=== PATIENT | female | born 1955 | race African-American/Black ===

== ENCOUNTER → 2016-10-20 | Day surgery (SDC) | payer BC ==
[~2016-10-20] MED LIST: ACET1TAB33 PO; ASPI81TA2 PO; ATEN50TA PO; CIPR500T94 PO; COLE1TAB PO; DILT180C2 PO; FAMO-63 PO; HYDR-2666 PO; HYDR-2678 PO; HYDR1TAB20 PO; HYDROmorphone 2 MG/ML VIAL IV PRN; IV RINGERS,LACTATED 1000ML 1,000 ML IV SCH; LIDOCAINE 1% 1 ML SYRINGE. ID PRN; MORPHINE SULFATE 2 MG/ML DISP.SYRIN. IV PRN; MULT-18 PO; MULT1TAB77 PO; ONDANSETRON PF 4 MG/2 ML VIAL. IV PRN; POTA20TA12 PO; PROCHLORPERAZINE 10 MG/2 ML VIAL. IV PRN; PROPOFOL 40 ML IV ONE; TRIA1CAP3 PO; fentaNYL PF VIAL 100 MCG/2 ML VIAL IV PRN
--- NOTE | 2016-10-20 09:40 | PDOC1 ---
HISTORY & PHYSICAL H&P Kathryn Kwan [id number] 1955 10/06/2016 02:30 PM 06/21 [facility], [employer] PATIENTS [employer] [employer] [address] [place], [place] [id number] Ph. [phone] Patient: Kathryn Kwan Date of : 1955 Date: 10/06/2016 2:30 PM Historian: self Visit Type: Office Visit This 61 year old female presents for Diarrhea and Elevated liver chemistry. History of Present Illness: 1. Diarrhea The patient describes it as loose and watery. It occurs cyclically. She denies aggravating factors. She denies relieving factors. Pertinent negatives include abdominal pain, bloating, blood in stool, cramping (abdominal), distention ( abdominal), fever, flatulence, joint pain, nausea, rash, tenesmus, vomiting and weight loss. Additional information: no family history of colon cancer, no family history of Crohns/Colitis and Patient had multiple small bowel resection due to bowel obstruction. 2. Elevated liver chemistry Additional information: Patient has some elevation of SGPT and some indirect bilirubinemia. No complain.. INTAKE COMMENTS: Intake Comments: Nurses Notes:Pt states she is here today due to elevated liver enzymes. Pt was referred by Dr. Alvarez. Pt goes on to say she has also has loose stools she states she goes 3-4 times a day. Pt is 61 yrs old states she has had a colonoscopy performed years ago. the pt had a small bowel resection a few years ago. PROBLEM LIST: Problem Description Onset Date Lipoma (clinical) 05/14/2010 Infantile cerebral palsy 05/14/2010 Acute bronchitis, unspecified organism 08/21/2015 Physical exam 08/21/2015 Back pain with left-sided radiculopathy 06/25/2015 Acute cystitis with hematuria 11/13/2015 Benign essential hypertension 11/01/2009 Uterine leiomyoma 11/01/2009 Diarrhea 11/01/2009 Acute back pain 06/17/2015 History of noncompliance with medication regimen 11/01/2009 Dyspepsia 11/01/2009 PAST MEDICAL/SURGICAL HISTORY (Detailed) Disease/disorder Onset Date Management Date Comments Small bowel resection 2006 Hysterectomy Cerebral Palsy diarrhea Fibroids Hypertension Lipoma Nephrolithiasis Peptic ulcer disease OBSTETRIC HISTORY: Not currently . Medications (Active): Started Medication Directions Instruction Stopped 06/02/2016 ASPIRIN EC 81 MG TABLET TAKE 1 TABLET DAILY 03/04/2016 atenolol 50 mg tablet TAKE 1 TABLET BY MOUTH EVERY DAY 03/04/2016 Colestid 1 gram tablet TAKE 1 TABLET BY ORAL ROUTE 2 TIMES EVERY DAY SCHEDULE APPT!!! 09/14/2016 [facility] SPECTRAVITE ADULT 50+ TABS TAKE 1 TABLET BY MOUTH EVERY DAY WITH FOOD . SCHEDULE APPOINTMENT 08/31/2016 DILTIAZEM 24HR ER 180 MG CAP TAKE 1 CAPSULE (180MG) BY ORAL ROUTE EVERY DAY, SCHEDULE APPT!!! 08/31/2016 hydrochlorothiazide 25 mg tablet take 1 tablet by oral route every day 09/15/2016 potassium chloride ER 10 mEq tablet,extended release take 1 tab by mouth 3 times daily Allergies: Ingredient Reaction Medication Name Comment NO KNOWN ALLERGIES REVIEW OF SYSTEMS System Neg/Pos Details Constitutional Negative Chills, fever, malaise and weight loss. ENMT Negative Sore throat. Eyes Negative Double vision. Respiratory Negative Dyspnea and wheezing. Cardio Negative Chest pain and irregular heartbeat/palpitations. GI Positive See HPI. GI Negative Abdominal cramping, abdominal distention, abdominal pain, bloating, blood in stool, flatulence, nausea, see HPI, tenesmus and vomiting. Negative Dysuria and hematuria. Endocrine Negative Cold intolerance and heat intolerance. Psych Negative Anxiety. Integumentary Negative Hives and rash. MS Negative Joint pain. Timur/Lymph Negative Easy bleeding and easy bruising. Allergic/Immuno Negative Animals at home and food allergies. VITAL SIGNS Time BP mm/Hg Pulse /min Resp /min Temp F Ht ft Ht in Ht cm Wt lb Wt kg BMI kg/ m2 BSA m2 O2 Sat% 2:35 PM 95 19 97.6 5.0 8.50 173.99 171.20 77.655 25.65 97 Time Measured by 2:35 PM Krystal Lanza PHYSICAL EXAM: Exam Findings Details Constitutional Normal Well developed. Eyes Normal Conjunctiva - Right: Normal, Left: Normal. Sclera - Right: Normal, Left: Normal. Nasopharynx Normal Lips/teeth/gums - Normal. Neck Exam Normal Inspection - Normal. Thyroid gland - Normal. Respiratory Normal Inspection - Normal. Auscultation - Normal. Cardiovascular Normal Regular rate and rhythm. No murmurs, gallops, or rubs. Vascular Normal Pulses - Carotids: Normal, Femoral: Normal, Dorsalis pedis: Normal. Abdomen Normal Inspection - Normal. Anterior palpation - No guarding. No abdominal tenderness. No hepatic enlargement. No splenic enlargement. No hernia. No Ascites. Skin Normal Inspection - Normal. Extremity Normal No edema. Psychiatric Normal Oriented to time, place, person, and situation. Appropriate mood and effect. The patient was checked out at 3:12 PM by Anitha Alvarado. Assessment/Plan # Detail Type Description 1. Assessment Functional diarrhea (K59.1). Patient Plan schedule colonoscopy at Plan Orders Further diagnostic evaluations ordered today include(s) Colonoscopy to be performed today. 2. Assessment Abnormal LFTs (R79.89). Patient Plan Schedule abdominal sonogram Plan Orders Further diagnostic evaluations ordered today include(s) Abdomen Ultrasound; Complete to be performed today. She is to schedule a follow-up visit with Yoni Faria MD upon completion of work-up 3. Assessment Abnormal results of liver function studies (R94.5). Impression Patient has predominant elevation of unconjugated bilirubin raising question if there is any evidence of mild hemolysis.. Patient Plan Repeat LFT today. Await sonogram result. Plan Orders LFT to be performed today. Electronically signed by: Yoni Faria MD 10/07/2016 06:28 AM Document generated by: Yoni Faria 10/07/2016 06:28 AM Shay Alvarze MD, Family Practice; Shelton Antunez MD Internal Medicine; Jj Cantrell MD, Internal Medicine; Lupe Faria MD Internal Medicine; Yoni Faria MD, Gastroenterology; Frankie Daniel MD, Rheumatology, S. Tsyon Douglas, Physical Medicine/Rehab Ariana Villeda APRN ------ 10/20/16 Patient seen and examined. No change in H&P. YONI FARIA MD October 20, 2016 09:40
--- NOTE | 2016-10-20 11:13 | PDOC4 ---
GI OP Report - Dr. Shelton Date/Time DATE: 10/20/16 TIME: 11:07 Attending Physician Amadou Shelton MD Referring Physician Indications Chronic diarrhea Pre-Op See the Anesthesia note for documentation of the administered medications Procedures Colonoscopy Findings - The entire examined colon is normal. Biopsied. Plan - Discharge patient to home. - Patient has a contact number available for emergencies. The signs and symptoms of potential delayed complications were discussed with the patient. Return to normal activities tomorrow. Written discharge instructions were provided to the patient. - Resume regular diet. - Continue present medications. - Await pathology results. - Repeat colonoscopy in 10 years for surveillance. - Return to my office in 2 weeks. AMADOU SHELTON MD October 20, 2016 11:13
[2016-10-20 11:40] VITALS: BP 107/69
--- NOTE | 2016-10-21 14:44 | PATHOLOGY ---
PATHOLOGY REPORT * * * * * * * * FINAL DIAGNOSIS: Colonic mucosa, random colon biopsies: - No significant pathologic abnormalities. COMMENT: Sections of the random colon biopsy reveal multiple segments of colonic mucosa. There is no evidence of a chronic destructive colitis, lymphocytic colitis or collagenous colitis. (JPM:csd; d/t: 10/21/2016) REPORT ELECTRONICALLY SIGNED BY: Zain Powell M.D. DATE/TIME: 10/21/2016 14:43 * * * * * * * * GROSS PATHOLOGY: Received in formalin labeled "Kathryn Kwan, random colon," are four segments of dougherty soft tissue measuring 0.8 x 0.8 x 0.1 cm in aggregate dimensions and ranging from 0.3 to 0.8 cm in maximum dimension. The specimen is submitted entirely in cassette A1. (CAA; 10/20/2016) INITIAL CPT CODE(S): A; 29723 Professional services performed [place] [facility] [place] [address] Technical services performed by [facility] at [address] [place] [address]. SPECIMEN(S) RECEIVED: A.Random colon biopsies CLINICAL HISTORY: Diarrhea PATIENT: KATHRYN KWAN /AGE: 2 1955 (Age: 61) PATIENT #: [id number] ALT CASE #: SPECIMEN COLLECTION DATE: 10/20/2016 SPECIMEN RECEIVED DATE: 10/20/2016 [facility] - [address] [place] [address] - PHONE: [phone] * * * END OF REPORT * * *
== END | disposition home or self-care (01) ==
LOC: ENDOS 09:06
PROVIDERS: ATTEND Internal Medicine Gastroenterology
DX: K52.9 Noninfective gastroenteritis and colitis, unspecified (principal); E78.00 Pure hypercholesterolemia, unspecified; I10 Essential (primary) hypertension; K21.9 Gastro-esophageal reflux disease without esophagitis; Z87.442 Personal history of urinary calculi; Z90.710 Acquired absence of both cervix and uterus
CPT/HCPCS: 45380; 88305; 99156; J2704

== ENCOUNTER → 2016-10-21 | Outpatient (CLI) | payer BC ==
[2016-10-20 11:40] VITALS: BP 107/69
[~2016-10-21] MED LIST changes: -HYDROmorphone 2 MG/ML VIAL IV PRN; -IV RINGERS,LACTATED 1000ML 1,000 ML IV SCH; -LIDOCAINE 1% 1 ML SYRINGE. ID PRN; -MORPHINE SULFATE 2 MG/ML DISP.SYRIN. IV PRN; -ONDANSETRON PF 4 MG/2 ML VIAL. IV PRN; -PROCHLORPERAZINE 10 MG/2 ML VIAL. IV PRN; -PROPOFOL 40 ML IV ONE; -fentaNYL PF VIAL 100 MCG/2 ML VIAL IV PRN
--- NOTE | 2016-10-21 11:07 | RAD ---
Indication:Abnormal liver function test Grayscale images of the abdomen were obtained. Comparison note is made of a prior similar examination 02/27/2011. Note is made of a CT examination of the abdomen and pelvis 05/26/2013. Liver:There is increased attenuation of the ultrasound beam by the liver compatible with fatty infiltration. There is a 3.4 cm hypoechoic mass in the liver compatible with a cyst. This was referenced on the previous ultrasound exam. A definite solid mass in the liver is not seen Gallbladder:Normal. The common bile duct diameter of approximately 5 mm is normal Spleen:Normal Pancreas:Largely obscured by gas Kidneys:Bilateral renal calculi are noted. This too was referenced on the previous exam. Hydronephrosis or definite solid mass is not seen Abdominal aorta and IVC:Similar to the pancreas poorly visualized and largely obscured Ancillary findings:None Impression:Fatty infiltration of the liver. Hepatic cyst. Bilateral renal calculi. Midline structures largely obscured
== END | disposition home or self-care (01) ==
LOC: US 09:35
PROVIDERS: ATTEND Internal Medicine Gastroenterology
DX: K76.0 Fatty (change of) liver, not elsewhere classified (principal); K76.89 Other specified diseases of liver; N20.0 Calculus of kidney
CPT/HCPCS: 76700

== ENCOUNTER 2016-12-12 08:18 | Inpatient (IN) | payer BC ==
[~2016-12-12] VITALS: Ht 175.3 cm; Wt 100.7 kg
[~2016-12-12 08:18] MED LIST changes: +ASPI-630 PO; -ASPI81TA2 PO; -HYDR-2666 PO; +HYDR-2758 PO
--- NOTE | 2016-12-12 09:05 | PHYS DOC ---
Past Medical History Past Medical History: Hypertension, Other Additional Past Medical Histor: bowel obstructions Past Surgical History: Colectomy, Other Additional Past Surgical Histo: breast reduction Alcohol Use: Rarely Drug Use: None Adult General Chief Complaint Chief Complaint: FLANK PAIN HPI HPI 61-year-old female presenting to the emergency department today with right flank pain. Her pain started last month and has been intermittent since then. As a sharp shooting pain. She has a history of kidney stones and has also noted dysuria with her pain. Her urologist is Dr. Henriquez. He has in the past placed stents and lithotripsy. The pain is moderate. Review of systems is negative for nausea vomiting fevers chills. She denies rashes shortness of breath or chest pain. All other review of systems is negative unless otherwise noted in history of present illness. ED course: 61-year-old female presenting to the emergency department today with right flank pain with history of kidney stones. Mild hypertension otherwise unremarkable vital signs. Patient is given IV fluids pain medication nausea medication in the emergency department. Blood work and urinalysis sent. Potassium came back at 2.6. EKG shows bradycardia with mild prolongation of the QRS and AR interval. Patient was given IV and oral potassium and admitted for potassium supplementation. CT of the abdomen pelvis noncontrast obtained to evaluate for kidney stone. Large kidney stone present. Dr. Villalta consult. She was then admitted for further evaluation workup and care. Review of Systems Review of Systems SEE ABOVE. Current Medications Current Medications Current Medications Medications (Trade) Dose Ordered Sig/Lester Start Time Stop Time Status Last Admin Dose Admin Hydromorphone HCl (Dilaudid) 0.5 mg PRN Q1HR PRN 12/12/16 09:15 12/12/16 09:19 0.5 MG Ondansetron HCl (Zofran) 4 mg 1X ONCE 12/12/16 09:15 12/12/16 09:16 DC 12/12/16 09:17 4 MG Potassium Chloride (Klor-Con) 40 meq 1X ONCE 12/12/16 10:30 12/12/16 10:31 DC 12/12/16 11:37 40 MEQ Sodium Chloride 1,000 ml @ 125 mls/hr Q8H 12/12/16 10:35 12/13/16 10:34 12/12/16 10:35 125 MLS/HR Allergies Allergies Allergies Coded Allergies Type Severity Reaction Last Updated Verified baclofen Allergy Intermediate Rash 10/20/16 Yes chlorzoxazone Allergy Intermediate Rash 10/20/16 Yes cyclobenzaprine Allergy Intermediate Rash 10/20/16 Yes ibuprofen Allergy Intermediate Rash 10/20/16 Yes metaxalone Allergy Intermediate Rash 03/01/14 Yes methocarbamol Allergy Intermediate Rash 03/01/14 Yes orphenadrine Allergy Intermediate Rash 03/01/14 Yes Physical Exam Physical Exam Constitutional: Well developed, well nourished, no acute distress, non-toxic appearance. [] HENT: Normocephalic, atraumatic, bilateral external ears normal, oropharynx moist, no oral exudates, nose normal. [] Eyes: PERRLA, EOMI, conjunctiva normal, no discharge. [] Neck: Normal range of motion, no tenderness, supple, no stridor. [] Cardiovascular:Heart rate regular rhythm, no murmur [] Lungs & Thorax: Bilateral breath sounds clear to auscultation [] Abdomen: Bowel sounds normal, soft, no tenderness, no masses, no pulsatile masses. [] Skin: Warm, dry, no erythema, no rash. [] Back: positive right CVA tenderness. No tenderness midline. Extremities: No tenderness, no cyanosis, no clubbing, ROM intact, no edema. [] Neurologic: Alert and oriented X 3, normal motor function, normal sensory function, no focal deficits noted. [] Psychologic: Affect normal, judgement normal, mood normal. [] Current Patient Data Vital Signs Vital Signs Date Time Temp Pulse Resp B/P (MAP) Pulse Ox O2 Delivery O2 Flow Rate FiO2 12/12/16 09:19 18 12/12/16 08:33 97.7 58 176/86 (116) 98 Room Air 97.7 Lab Values Laboratory Tests Test 12/12/16 09:00 White Blood Count 7.0 x10^3/uL (4.0-11.0) Red Blood Count 4.13 x10^6/uL (3.50-5.40) Hemoglobin 12.3 g/dL (12.0-15.5) Hematocrit 36.6 % (36.0-47.0) Mean Corpuscular Volume 89 fL (79-100) Mean Corpuscular Hemoglobin 30 pg (25-35) Mean Corpuscular Hemoglobin Concent 34 g/dL (31-37) Red Cell Distribution Width 13.1 % (11.5-14.5) Platelet Count 218 x10^3/uL (140-400) Neutrophils (%) (Auto) 57 % (31-73) Lymphocytes (%) (Auto) 31 % (24-48) Monocytes (%) (Auto) 8 % (0-9) Eosinophils (%) (Auto) 3 % (0-3) Basophils (%) (Auto) 1 % (0-3) Neutrophils # (Auto) 4.0 x10^3uL (1.8-7.7) Lymphocytes # (Auto) 2.2 x10^3/uL (1.0-4.8) Monocytes # (Auto) 0.6 x10^3/uL (0.0-1.1) Eosinophils # (Auto) 0.2 x10^3/uL (0.0-0.7) Basophils # (Auto) 0.0 x10^3/uL (0.0-0.2) Sodium Level 144 mmol/L (136-145) Potassium Level 2.6 mmol/L (3.5-5.1) *L Chloride Level 105 mmol/L (98-107) Carbon Dioxide Level 30 mmol/L (21-32) Anion Gap 9 (6-14) Blood Urea Nitrogen 13 mg/dL (7-20) Creatinine 0.9 mg/dL (0.6-1.0) Estimated GFR (Cockcroft-Gault) 77.3 Glucose Level 102 mg/dL (70-99) H Calcium Level 9.1 mg/dL (8.5-10.1) Laboratory Tests 12/12/16 09:00 Laboratory Tests 12/12/16 09:00 EKG EKG [] Radiology/Procedures Radiology/Procedures [] Course & Med Decision Making Course & Med Decision Making Pertinent Labs and Imaging studies reviewed. (See chart for details) [] Dragon Disclaimer Dragon Disclaimer This electronic medical record was generated, in whole or in part, using a voice recognition dictation system. Departure Departure Impression: Primary Impression: Flank pain Additional Impressions: Hypokalemia Nephrolithiasis Disposition: ADMITTED INPATIENT Admitting Physician: Jj Cantrell Condition: STABLE Referrals: KARIN ARGUELLO (PCP) Patient Instructions: Flank Pain Problem Qualifiers PETTY ENGLISH MD Dec 12, 2016 09:05
[2016-12-12 09:14] LABS: BASO % 1 % (0-3); EOS % 3 % (0-3); HEMATOCRIT 36.6 % (36.0-47.0); HEMOGLOBIN 12.3 g/dL (12.0-15.5); LYMPH # 2.2 x10^3/uL (1.0-4.8); LYMPH % 31 % (24-48); MEAN CORPUSCULAR HEMOGLOBIN 30 pg (25-35); MEAN CORPUSCULAR HGB CONC 34 g/dL (31-37); MEAN CORPUSCULAR VOLUME 89 fL (79-100); MONO % 8 % (0-9); NEUT % 57 % (31-73); PLATELET COUNT 218 x10^3/uL (140-400); RED BLOOD COUNT 4.13 x10^6/uL (3.50-5.40); RED CELL DISTRIBUTION WIDTH 13.1 % (11.5-14.5)
[2016-12-12] MEDS ORDERED: HYDROmorphone 2 MG/ML VIAL IV PRN (09:15)
[2016-12-12] MEDS ORDERED: IV NORMAL SALINE 500ML BAG 500 ML IV ONE (09:15)
[2016-12-12] MEDS ORDERED: ONDANSETRON PF 4 MG/2 ML VIAL. IV ONE (09:15)
[2016-12-12 09:27] LABS: CALCIUM 9.1 mg/dL (8.5-10.1); CREATININE 0.9 mg/dL (0.6-1.0); GFR 77.3
[2016-12-12 09:28] LABS: POTASSIUM 2.6 mmol/L (3.5-5.1)
[2016-12-12] MEDS ORDERED: POTASSIUM CHLORIDE 20 MEQ TABLET.ER. PO ONE (10:30)
[2016-12-12] MEDS: IV NORMAL SALINE 1000ML BAG 1,000 ML IV SCH ×2 (10:35→18:55)
[2016-12-12] MEDS ORDERED: ONDANSETRON PF 4 MG/2 ML VIAL. IV PRN (10:45)
--- NOTE | 2016-12-12 11:24 | RAD ---
PQRS Compliance Statement: One or more of the following individualized dose reduction techniques were utilized for this examination: 1. Automated exposure control 2. Adjustment of the mA and/or kV according to patient size 3. Use of iterative reconstruction technique CT ABDOMEN PELVIS WO CONTRAST Clinical Indication: Right-sided flank pain with dysuria intermittently x1 month. History of prior kidney stone and stent placement. Comparison: CT abdomen and pelvis with contrast 05/26/2013. Technique: Helical CT imaging of the abdomen and pelvis is performed without IV or oral contrast. Findings: Mild atelectasis or scarring in the lung bases. Mild right lower lobe bronchiectasis. Cardiac size normal. Fatty infiltration of the liver. Marked hepatomegaly is unchanged. Hepatic cyst anterior to the IVC has increased in size now measuring up to 2.5 cm. Calcified granulomas in the liver and spleen. Scattered small calcifications of the pancreas head redemonstrated. Finding may be secondary to chronic calcific pancreatitis. No peripancreatic inflammation. Stable left adrenal nodule. Right adrenal gland abdominal aorta are normal. Numerous bilateral renal calculi. No left hydronephrosis. Moderate right hydroureteronephrosis secondary to a 10 x 6 cm calculus in the distal right ureter a few centimeters proximal to the ureterovesicular junction, image 157. Stomach is not well distended accentuating wall thickness. No dilated small bowel. Colectomy. No urinary bladder wall thickening. Uterus surgically absent. No pelvic free fluid. Sebaceous cyst of left pubis slightly larger. No acute bone abnormality. Stable hyperdensities of the ventral abdominal wall. IMPRESSION: 1. Moderate right obstructive uropathy secondary to a 10 x 6 mm calculus in the distal right ureter. 2. Multiple bilateral nonobstructing renal calculi. 3. Stable marked hepatomegaly and fatty infiltration. 4. Stable left adrenal nodule.
--- NOTE | 2016-12-12 11:29 | EKG ---
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
[2016-12-12] MEDS: POTASSIUM CHLORIDE 10MEQ 100 ML IV SCH ×2 (11:40→13:18)
--- NOTE | 2016-12-12 11:47 | ACF ---
Admission Forms Criteria RENAL COLIC AND KIDNEY STONES Clinical Indications for Admission to Inpatient Care ( Place 'X' for any and all applicable criteria): Admission is indicated for ANY ONE of the following (1)(2)(3)(4): [X]I. Inpatient admission required rather than observation care (Also use Renal Colic and Kidney Stones: Observation Care Criteria as appropriate) because of ANY ONE of the following: [X]a) Severe pain requiring acute inpatient management [ ]b) Urinary tract infection identified [ ]c) Vomiting that is severe or persistent [ ]d) IV fluid required rather than oral rehydration to replace significant ongoing (eg, for greater than 24 hours) losses (greater than 200 mL/hr or 3 L/m2 per day) [ ]e) Percutaneous or open drainage (eg, abscess, biliary tract) procedures [ ]f) Other condition, treatment or monitoring requiring inpatient admission [ ]II. Impending acute renal failure [ ]III. Bilateral obstruction [ ]IV. Single kidney with obstruction [ ]V. Transplanted kidney with obstruction [ ]. Possible open surgical procedure needed (eg, pyonephrosis, stone removal not amendable to other means) [ ]VII. Hemodynamic instability Extended stay beyond goal length of stay may be needed for(2)(3)(31): [ ]a) Failed initial stone removal (32) [ ]b) Pyonephrosis [ ]c) Obstructive uropathy with urinary tract infection [ ]d) Procedure complications [ ]e) Comorbidities (22) The original [employer] content created by [employer] has been revised. The portions of the content which have been revised are identified through the use of italic text or in bold, and [facility] has neither reviewed nor approved the modified material. All other unmodified content is copyright [facility] [employer]. Please see references footnoted in the original [facility] edition 2016 Admission Criteria Met?: Yes ALEXI MAYA Dec 12, 2016 11:47
[2016-12-12] MEDS ORDERED: HYDR12.58 PO (12:33)
[2016-12-12 13:22] VITALS: BP 133/89
[2016-12-12 15:00] VITALS: BP 130/80
[2016-12-12] MEDS: MORPHINE SULFATE 2 MG/ML DISP.SYRIN. IV PRN ×2 (16:10→22:50)
[2016-12-12 19:00] VITALS: BP 108/64
--- NOTE | 2016-12-12 19:56 | PDOC ---
PROGRESS NOTES Subjective Subjective Pt. with large right ureteral stone Objective Objective Vital Signs Date Time Temp Pulse Resp B/P (MAP) Pulse Ox O2 Delivery O2 Flow Rate FiO2 12/12/16 16:40 18 99 Room Air 12/12/16 15:00 98.4 62 130/80 (97) 98.4 Physical Exam Physical Exam Mild right abd tenderness Plan Plan of Care 10 X 6 mm right distal ureteral stone I discussed with pt. the options, alternatives, benefits, risks, and possible complications of observation vs. cystoscopy, right retrograde pyelogram and right ureteral stent placement. Pt. understands and wishes to proceed with operation. Will proceed accordingly. Problems Medical Problems: (1) Flank pain Status: Acute (2) Hypokalemia Status: Acute (3) Nephrolithiasis Status: Acute Comment Review of Relevant I have reviewed the following items tammy (where applicable) has been applied. Labs Laboratory Tests Test 12/12/16 09:00 White Blood Count 7.0 x10^3/uL (4.0-11.0) Red Blood Count 4.13 x10^6/uL (3.50-5.40) Hemoglobin 12.3 g/dL (12.0-15.5) Hematocrit 36.6 % (36.0-47.0) Mean Corpuscular Volume 89 fL (79-100) Mean Corpuscular Hemoglobin 30 pg (25-35) Mean Corpuscular Hemoglobin Concent 34 g/dL (31-37) Red Cell Distribution Width 13.1 % (11.5-14.5) Platelet Count 218 x10^3/uL (140-400) Neutrophils (%) (Auto) 57 % (31-73) Lymphocytes (%) (Auto) 31 % (24-48) Monocytes (%) (Auto) 8 % (0-9) Eosinophils (%) (Auto) 3 % (0-3) Basophils (%) (Auto) 1 % (0-3) Neutrophils # (Auto) 4.0 x10^3uL (1.8-7.7) Lymphocytes # (Auto) 2.2 x10^3/uL (1.0-4.8) Monocytes # (Auto) 0.6 x10^3/uL (0.0-1.1) Eosinophils # (Auto) 0.2 x10^3/uL (0.0-0.7) Basophils # (Auto) 0.0 x10^3/uL (0.0-0.2) Sodium Level 144 mmol/L (136-145) Potassium Level 2.6 mmol/L (3.5-5.1) Chloride Level 105 mmol/L (98-107) Carbon Dioxide Level 30 mmol/L (21-32) Anion Gap 9 (6-14) Blood Urea Nitrogen 13 mg/dL (7-20) Creatinine 0.9 mg/dL (0.6-1.0) Estimated GFR (Cockcroft-Gault) 77.3 Glucose Level 102 mg/dL (70-99) Calcium Level 9.1 mg/dL (8.5-10.1) Laboratory Tests Test 12/12/16 09:00 White Blood Count 7.0 x10^3/uL (4.0-11.0) Red Blood Count 4.13 x10^6/uL (3.50-5.40) Hemoglobin 12.3 g/dL (12.0-15.5) Hematocrit 36.6 % (36.0-47.0) Mean Corpuscular Volume 89 fL (79-100) Mean Corpuscular Hemoglobin 30 pg (25-35) Mean Corpuscular Hemoglobin Concent 34 g/dL (31-37) Red Cell Distribution Width 13.1 % (11.5-14.5) Platelet Count 218 x10^3/uL (140-400) Neutrophils (%) (Auto) 57 % (31-73) Lymphocytes (%) (Auto) 31 % (24-48) Monocytes (%) (Auto) 8 % (0-9) Eosinophils (%) (Auto) 3 % (0-3) Basophils (%) (Auto) 1 % (0-3) Neutrophils # (Auto) 4.0 x10^3uL (1.8-7.7) Lymphocytes # (Auto) 2.2 x10^3/uL (1.0-4.8) Monocytes # (Auto) 0.6 x10^3/uL (0.0-1.1) Eosinophils # (Auto) 0.2 x10^3/uL (0.0-0.7) Basophils # (Auto) 0.0 x10^3/uL (0.0-0.2) Sodium Level 144 mmol/L (136-145) Potassium Level 2.6 mmol/L (3.5-5.1) Chloride Level 105 mmol/L (98-107) Carbon Dioxide Level 30 mmol/L (21-32) Anion Gap 9 (6-14) Blood Urea Nitrogen 13 mg/dL (7-20) Creatinine 0.9 mg/dL (0.6-1.0) Estimated GFR (Cockcroft-Gault) 77.3 Glucose Level 102 mg/dL (70-99) Calcium Level 9.1 mg/dL (8.5-10.1) Medications Current Medications Hydromorphone HCl (Dilaudid) 0.5 mg PRN Q1HR PRN IV SEVERE PAIN Last administered on 12/12/16 09:19; Start 12/12/16 at 09:15 Ondansetron HCl (Zofran) 4 mg 1X ONCE IV Last administered on 12/12/16 09:17 ; Start 12/12/16 at 09:15; Stop 12/12/16 at 09:16; Status DC Sodium Chloride 500 ml @ 500 mls/hr 1X ONCE IV Last administered on 09:15; Start 12/12/16 at 09:15; Stop 12/12/16 at 10:14; Status DC Potassium Chloride (Klor-Con) 40 meq 1X ONCE PO Last administered on 11:37; Start 12/12/16 at 10:30; Stop 12/12/16 at 10:31; Status DC Potassium Chloride 100 ml @ 100 mls/hr Q1H IV Last administered on 12/12/16 13:18; Start 12/12/16 at 11:00; Stop 12/12/16 at 12:59; Status DC Ondansetron HCl (Zofran) 4 mg PRN Q8HRS PRN IV NAUSEA/VOMITING; Start 12/12/16 at 10:45; Stop 12/13/16 at 10:44 Morphine Sulfate 2 mg PRN Q2HR PRN IV PAIN Last administered on 12/12/16 16:10 ; Start 12/12/16 at 10:45; Stop 12/13/16 at 10:44 Sodium Chloride 1,000 ml @ 125 mls/hr Q8H IV Last administered on 12/12/16 18 :55; Start 12/12/16 at 10:35; Stop 12/13/16 at 10:34 Active Scripts Active Reported Hydrochlorothiazide Tablet (Hydrochlorothiazide) 12.5 Mg Tablet 25 Mg PO DAILY Potassium Chloride 20 Meq Tab.er.prt 20 Meq PO BID Daily Vitamin (Multivitamin) 1 Each Tablet 1 Each PO DAILY Pepcid (Famotidine) 20 Mg Tablet 20 Mg PO HS Cardizem Cd (Diltiazem Hcl) 180 Mg Cap.er.24h 180 Mg PO DAILY Colestid (Colestipol Hcl) 1 Gm Tablet 1 Gm PO BID Atenolol 50 Mg Tablet 50 Mg PO DAILY Aspirin 81 Mg Tab.chew 81 Mg PO DAILYWBKFT Vitals/I & O Vital Sign - Last 24 Hours 12/12/16 12/12/16 12/12/16 12/12/16 08:33 09:05 09:19 09:35 Temp 97.7 97.7 Pulse 58 70 71 Resp 18 18 18 16 B/P (MAP) 176/86 (116) 144/85 (104) 148/72 (97) Pulse Ox 98 97 95 O2 Delivery Room Air Room Air Room Air 12/12/16 12/12/16 12/12/16 12/12/16 10:05 10:35 11:25 12:40 Pulse 70 52 54 Resp 16 19 18 B/P (MAP) 136/74 (94) 140/74 (96) 136/72 (93) Pulse Ox 95 96 97 O2 Delivery Room Air Room Air Room Air Room Air 12/12/16 12/12/16 12/12/16 12/12/16 12:54 13:22 15:00 16:10 Temp 98.1 98.4 98.1 98.4 Pulse 56 62 Resp 18 16 18 18 B/P (MAP) 133/89 (104) 130/80 (97) Pulse Ox 99 99 O2 Delivery Room Air Room Air Room Air Room Air 12/12/16 16:40 Resp 18 Pulse Ox 99 O2 Delivery Room Air KRIS NIEVES MD Dec 12, 2016 19:56
[2016-12-12 21:34] LABS: BILIRUBIN,URINE NEGATIVE (NEG); GLUCOSE,URINE NEGATIVE (NEG); NITRITE,URINE NEGATIVE (NEG); PROTEIN,URINE NEGATIVE (NEG-TRACE); UROBILINOGEN,URINE 0.2 mg/dL (0.2 mg/dL)
[2016-12-12 21:43] LABS: BACTERIA,URINE 0 /HPF (0-FEW); SQUAMOUS EPITHELIAL CELL,UR FEW /LPF
[2016-12-12 23:00] VITALS: BP 114/75
[2016-12-13] VITALS (10 sets, daily range): BP systolic 109–141; BP diastolic 42–83
[2016-12-13] MEDS: IV NORMAL SALINE 1000ML BAG 1,000 ML IV SCH ×2 (02:35→10:15)
[2016-12-13 06:37] LABS: ALBUMIN 2.6 g/dL (3.4-5.0); ALBUMIN/GLOBULIN RATIO 0.8 (1.0-1.7); CALCIUM 7.9 mg/dL (8.5-10.1); CREATININE 0.8 mg/dL (0.6-1.0); GFR 88.5; POTASSIUM 3.3 mmol/L (3.5-5.1); TOTAL PROTEIN 5.9 g/dL (6.4-8.2)
[2016-12-13] MEDS ORDERED: IOHEXOL 300 MG/ML 50 ML VIAL. ONE (06:42)
[2016-12-13] MEDS ORDERED: LIDOCAINE 2% JELLY 6ML IN APPLICATOR. ONE (06:42)
[2016-12-13 06:54] LABS: BASO % 0 % (0-3); EOS % 4 % (0-3); HEMATOCRIT 35.3 % (36.0-47.0); HEMOGLOBIN 11.5 g/dL (12.0-15.5); LYMPH # 2.8 x10^3/uL (1.0-4.8); LYMPH % 41 % (24-48); MEAN CORPUSCULAR HEMOGLOBIN 30 pg (25-35); MEAN CORPUSCULAR HGB CONC 33 g/dL (31-37); MEAN CORPUSCULAR VOLUME 92 fL (79-100); MONO % 7 % (0-9); NEUT % 48 % (31-73); PLATELET COUNT 178 x10^3/uL (140-400); RED BLOOD COUNT 3.83 x10^6/uL (3.50-5.40); RED CELL DISTRIBUTION WIDTH 13.4 % (11.5-14.5); WHITE BLOOD COUNT 6.8 x10^3/uL (4.0-11.0)
[2016-12-13] MEDS ORDERED: DEXAMETHASONE SOD PHOS 20 MG/5 ML VIAL. ONE (06:57)
[2016-12-13] MEDS ORDERED: PROPOFOL 20 ML IV ONE (06:57)
[2016-12-13] MEDS ORDERED: ONDANSETRON PF 4 MG/2 ML VIAL. ONE (06:57)
[2016-12-13] MEDS ORDERED: fentaNYL PF VIAL 100 MCG/2 ML VIAL ONE (06:57)
[2016-12-13] MEDS ORDERED: LIDOCAINE 2% PF Vial for OR 5 ML VIAL. ONE (06:57)
--- NOTE | 2016-12-13 07:33 | CONS ---
DATE OF CONSULTATION: 12/12/2016 LOCATION: The patient's room is 584. HISTORY OF PRESENT ILLNESS: The patient is a very pleasant, 61-year-old, -[place] female with a history of right renal colic for the past 2 weeks. The patient has had pain on and off and came in the Emergency Room, was evaluated and found to have a 10 mm x 4 mm right distal ureteral stone with moderate right hydroureteronephrosis and also bilateral nonobstructing renal calculi. The patient with a history of stones in the past. She has had prior stone manipulations by Dr. Henriquez. The patient had a history of bowel obstructions with removal of segments of her intestine in the past and possibly it is the reason why she has had the recurrent stone disease. Her serum calcium level is normal at 9.1, creatinine is 0.9. White count is 7.0. The patient came in with hypokalemia at 2.6. She does take oral supplement. She was also placed on potassium supplement here in hospital. The patient is currently with some right-sided flank and abdominal pain. PHYSICAL EXAMINATION: ABDOMEN: Soft with some mild tenderness in the right side of the abdomen and minimal tenderness in the right CVA area. ASSESSMENT AND PLAN: I discussed with the patient her large right distal ureteral stone and we discussed the options, alternatives, benefits, risks and possible complications of observation versus surgical intervention with cystoscopy, right retrograde pyelogram, and right ureteral stent placement. She understands these and does wish to proceed ahead with operation. We will, therefore, proceed accordingly. The patient is on baby aspirin and will go ahead and hold this for future stone manipulation. In the future, most likely requiring holmium laser lithotripsy once she has been off of her aspirin for at least 5 days. I certainly appreciate being allowed to participate in this patient's care. KRIS NIEVES MD DR: MARIELA/kingsley JOB#: [id number] / [id number]
[2016-12-13] MEDS ORDERED: ePHEDrine PF IN SALINE 50 MG/5 ML DISP.SYRIN IV ONE (08:09)
[2016-12-13] MEDS ORDERED: IV RINGERS,LACTATED 1000ML 1,000 ML IV SCH (08:10)
[2016-12-13] MEDS ORDERED: MORPHINE SULFATE 2 MG/ML DISP.SYRIN. IV PRN (08:15)
[2016-12-13] MEDS ORDERED: PROCHLORPERAZINE 10 MG/2 ML VIAL. IV PRN (08:15)
[2016-12-13] MEDS ORDERED: ONDANSETRON PF 4 MG/2 ML VIAL. IV PRN (08:15)
[2016-12-13] MEDS ORDERED: HYDROmorphone 2 MG/ML VIAL IV PRN (08:15)
[2016-12-13] MEDS ORDERED: fentaNYL PF VIAL 100 MCG/2 ML VIAL IV PRN ×2 (08:15)
[2016-12-13] MEDS ORDERED: LIDOCAINE 1% 1 ML SYRINGE. ID PRN (08:15)
[2016-12-13] MEDS ORDERED: LIDOCAINE 2% JELLY 6ML IN APPLICATOR. MM ONE (08:16)
--- NOTE | 2016-12-13 08:38 | PDOC4 ---
Operative Note Operative Note pre-op dx-right ureteral stone procedure-cystoscopy, right retrograde pyelogram, right ureteral stent placement surgeon-radha issa-general Pt. to PACU in stable condition KRIS NIEVES MD Dec 13, 2016 08:38
[2016-12-13] MEDS ORDERED: ACETAMINOPHEN 325 MG TABLET. PO PRN (10:45)
[2016-12-13] MEDS ORDERED: POTASSIUM CHLORIDE 20 MEQ in IV NORMAL SALINE 1000ML BAG 1,000 ML IV SCH (11:00)
[2016-12-13] MEDS ORDERED: ATENOLOL 50 MG TABLET. PO SCH (11:00)
[2016-12-13] MEDS: POTASSIUM CHLORIDE 20 MEQ TABLET.ER. PO SCH ×2 (11:17→17:02)
[2016-12-13] MEDS: ASPIRIN CHEWABLE 81 MG TABLET. PO SCH (11:18)
[2016-12-13] MEDS: ATENOLOL 25 MG TABLET. PO SCH (11:19)
--- NOTE | 2016-12-13 11:32 | PDOC ---
Provider Note Provider Note Patient seen. History and Physical dictated. See dictation# [id number] MERY SHELTON MD Dec 13, 2016 11:32
--- NOTE | 2016-12-13 11:46 | OP ---
DATE OF SURGERY: 12/13/2016 OPERATION: Cystoscopy, right retrograde pyelogram, right ureteral stent placement. SURGEON: Kris Villalta MD ANESTHESIA: General. PREOPERATIVE DIAGNOSIS: Right ureteral calculus and bilateral renal calculi. POSTOPERATIVE DIAGNOSIS: Right ureteral calculus and bilateral renal calculi. INDICATIONS: The patient is a very pleasant 61-year-old -E[place]ian female with history of stone disease who has had 2-week history of right-sided flank and abdominal pain, found to have a 10 mm x 6 mm stone in the right distal ureter with hydroureteronephrosis. I have discussed with the patient the options, alternatives, benefits, risks and possible complications of cystoscopy, right retrograde pyelogram, and right ureteral stent placement to get her unobstructed. She understands this and does wish to proceed with the operation. DESCRIPTION OF PROCEDURE: After obtaining informed consent, the patient was taken to the operating room. After an excellent general anesthetic, the patient was placed in a dorsal lithotomy position. Groin was prepped and draped in sterile fashion. The patient was preloaded with IV antibiotics. Panendoscopy and cystoscopy were then performed with the 30 and 70-degree lenses on the 21-Scottish cystoscope sheath. Bladder was entered and inspected. Both ureteral orifices were identified and found to be grossly patent. Bladder wall appeared smooth and without any lesions. No bladder tumors or bladder stones were identified. Radiopacity was seen in the area of the right distal ureter consistent with the patient's stone. Right retrograde pyelogram was performed. The patient was noted to have filling defect in the area of the radiopacity consistent with the patient's stone with dilation of the ureter above that level. Following this, a floppy-tipped ZIPwire was able to be passed up the right ureteral orifice past the stone, up the right ureter to the right kidney. Following this, a 5-Scottish Pollack catheter was passed over the ZIPwire past the stone, up the right ureter to the right kidney and then the ZIPwire removed and a hydronephrotic drip was noted. Following this, the ZIPwire was then replaced and the Pollack catheter removed and then following this, a 6 x 28 double-J stent was then passed up the ZIPwire past the stone, up the right ureter, placing one curl in the right upper pole jonna and the other curl in the bladder and the ZIPwire removed. Stent position was checked by fluoroscopy and direct vision, found to be in good position. Following this, bladder was then drained. The cystoscope was withdrawn from the patient. The patient tolerated the procedure very well, was taken to recovery room in stable condition. Plan will be to have the patient hold off on her daily baby aspirin and have her follow up with Dr. Pinzon or Dr. Burnett at Urology in the next week or two for further evaluation and treatment of her right ureteral stone and then also management of her significant renal stone history. KRIS VILLALTA MD DR: MARIELA/kingsley JOB#: [id number] / [id number]
--- NOTE | 2016-12-13 12:54 | HP ---
ADMIT DATE: 12/12/2016 ADMITTING PHYSICIAN: Dr. Cantrell. REASON FOR ADMISSION: Severe hypokalemia and obstructive nephrolithiasis. HISTORY OF PRESENT ILLNESS: This 61-year-old -Cub[place] female presented to the Emergency Room with right flank pain. The patient also has history of a short bowel syndrome and has chronic diarrhea and a history of recurrent hypokalemia. In the Emergency Room, the patient was noted to have heart rate in the 40s and her potassium was noted to be 2.6. The patient also had mild prolongation of the QRS and VT interval. The patient was given IV and oral potassium. The patient was also noted to have right ureteral obstruction due to kidney stone. Because of multiple medical problems, the patient was admitted for further evaluation and management. SYSTEMS REVIEW: The patient has history of infantile cerebral palsy and is a very poor historian. She admits to diarrhea. She denies any nausea or vomiting at this time. She denies any fever, chills, dysuria. Other systems were reviewed and are negative. As noted earlier, the patient is a poor historian. She has a history of noncompliance. Her previous admission here was in 04/2013. At that time, she was admitted for E. coli sepsis, hypotension, urinary tract infection, hydronephrosis and kidney stones. She has a history of short bowel syndrome and infantile cerebral palsy. PAST SURGICAL HISTORY: The patient has had colectomy and breast reduction. SOCIAL HISTORY: No history of smoking, alcoholism or drug abuse. FAMILY HISTORY: Reviewed and noncontributory. ALLERGIES: THE PATIENT IS ALLERGIC TO BACLOFEN, CHLORZOXAZONE, CYCLOBENZAPRINE, IBUPROFEN, METAXALONE, METHOCARBAMOL AND ORPHENADRINE. MEDICATIONS: Reviewed. PHYSICAL EXAMINATION: VITAL SIGNS: Temperature 97.8, pulse 60 per minute, respirations 17 per minute, blood pressure 128/83 mmHg. Yesterday, her heart rate was also noted to be in 40s at one time. GENERAL: The patient is alert, oriented, not in acute distress. LUNGS: Clear with decreased breath sounds at bases. CARDIOVASCULAR SYSTEM: S1, S2, regular. ABDOMEN: Soft, nontender, no guarding, no rigidity. Bowel sounds present. EYES: Pupils reacting to light. Conjunctivae pink. HENT: Unremarkable. NECK: Supple. JVP normal. No thyromegaly. EXTREMITIES: No edema. CENTRAL NERVOUS SYSTEM: The patient is a poor historian. Has generalized weakness. NEUROLOGIC: Moves all extremities. She appears to be thin and malnourished. LABORATORY FINDINGS: Potassium was 2.6 yesterday, it is 3.3 today. BUN 13, creatinine 0.9, CO2 30, AST 26, ALT 35, albumin 2.6, total protein 5.9. WBC count 7, hemoglobin 12.3. Today, WBC count is 6.8, hemoglobin 11.5. CT scan of abdomen and pelvis showed a right ureteral obstruction due to kidney stone. She also has multiple bilateral nonobstructing renal calculi and marked hepatomegaly and fatty malnutrition and stable left adrenal nodule. IMPRESSION: 1. Right ureteral obstruction due to kidney stone. The patient underwent a right ureteral stent placement done by Dr. Villalta this morning. 2. Bilateral nephrolithiasis. 3. Severe hypokalemia, improving. 4. Short bowel syndrome. 5. Fatty liver. 6. Left adrenal nodule. 7. History of infantile cerebral palsy. 8. Bradycardia. 9. Hypertension. I will decrease the dose of atenolol to 25 mg daily and hold if heart rate less than 60 per minute. PLAN: Continue IV fluids. Currently, she does not need any antibiotics, but monitor urine. Urinalysis was negative for infection initially. I will add potassium chloride to IV fluids. Continue IV normal saline with potassium. I will also resume her home potassium supplement, that is potassium chloride 20 mEq twice a day. Because of her bradycardia and hypokalemia, we will adjust the medications today and monitor her today and discharge her . She also has diarrhea, so we will continue to monitor that. I have encouraged the patient to drink plenty of fluids. As noted earlier, resume potassium supplements orally and also in the IV. Recheck labs in a.m. If the patient is stable, she will be able to be discharged tomorrow. For details, please refer to the orders. MERY SHELTON MD DR: GISELLE/kingsley JOB#: [id number] / [id number] KARIN Santizo VINAYA MD
[2016-12-13] MEDS ORDERED: FAMOTIDINE 20 MG TABLET. PO SCH (21:00)
[2016-12-13] MEDS: COLESTIPOL HCL 1 GM TABLET PO SCH (21:27)
[2016-12-14 03:05] VITALS: BP 129/70
[2016-12-14 05:21] LABS: BASO % 0 % (0-3); EOS % 0 % (0-3); HEMATOCRIT 31.4 % (36.0-47.0); HEMOGLOBIN 10.8 g/dL (12.0-15.5); LYMPH # 1.2 x10^3/uL (1.0-4.8); LYMPH % 11 % (24-48); MEAN CORPUSCULAR HEMOGLOBIN 31 pg (25-35); MEAN CORPUSCULAR HGB CONC 35 g/dL (31-37); MEAN CORPUSCULAR VOLUME 89 fL (79-100); MONO % 7 % (0-9); NEUT % 81 % (31-73); PLATELET COUNT 193 x10^3/uL (140-400); RED BLOOD COUNT 3.53 x10^6/uL (3.50-5.40); RED CELL DISTRIBUTION WIDTH 13.3 % (11.5-14.5); WHITE BLOOD COUNT 10.2 x10^3/uL (4.0-11.0)
[2016-12-14 05:45] LABS: ALBUMIN 2.9 g/dL (3.4-5.0); CALCIUM 8.4 mg/dL (8.5-10.1); CREATININE 0.7 mg/dL (0.6-1.0); GFR 103.3; POTASSIUM 3.5 mmol/L (3.5-5.1); TOTAL BILIRUBIN 0.8 mg/dL (0.2-1.0); TOTAL PROTEIN 5.9 g/dL (6.4-8.2)
[2016-12-14 07:00] VITALS: BP 129/76
[2016-12-14] MEDS: ASPIRIN CHEWABLE 81 MG TABLET. PO SCH (08:00)
[2016-12-14] MEDS: COLESTIPOL HCL 1 GM TABLET PO SCH (08:45)
[2016-12-14] MEDS: POTASSIUM CHLORIDE 20 MEQ TABLET.ER. PO SCH (08:46)
[2016-12-14] MEDS: ATENOLOL 25 MG TABLET. PO SCH (08:46)
[2016-12-14] MEDS ORDERED: MULTIVITAMIN with MINERAL TABLET. PO SCH (09:00)
--- NOTE | 2016-12-14 10:07 | PDOC ---
PROGRESS NOTES Subjective Subjective feels good ,want to go home today Objective Objective Vital Signs Date Time Temp Pulse Resp B/P (MAP) Pulse Ox O2 Delivery O2 Flow Rate FiO2 12/14/16 08:49 52 12/14/16 08:46 129/76 12/14/16 07:00 97.6 18 98 Room Air 97.6 12/13/16 08:50 10 Intake and Output 12/14/16 06:59 Intake Total 2885 ml Output Total 2500 ml Balance 385 ml Intake Oral 1360 ml IV Total 1525 ml Output Urine Total 2500 ml Physical Exam Abdomen: Normal bowel sounds, Soft Heart: Regular rate, Normal S1, Normal S2 Extremities: No clubbing, No cyanosis General: Alert HEENT: Atraumatic MUSCULOSKELETAL: No joint tenderness, No deformity, No swelling, No muscular tenderness noted, Full range of motion without pain Neuro: Normal gait Psych/Mental Status: Mental status NL Skin: No breakdown Diagnosis Problem List Problems Medical Problems: (1) Flank pain Status: Acute (2) Hypokalemia Status: Acute (3) Nephrolithiasis Status: Acute Assessment Assessment Problems Medical Problems: (1) Flank pain Status: Acute (2) Hypokalemia Status: Acute (3) Nephrolithiasis Status: Acute IMPRESSION: 1. Right ureteral obstruction due to kidney stone. The patient underwent a right ureteral stent placement done by Dr. Villalta this morning. 2. Bilateral nephrolithiasis. 3. Severe hypokalemia, improving. 4. Short bowel syndrome. 5. Fatty liver. 6. Left adrenal nodule. 7. History of infantile cerebral palsy. 8. Bradycardia. 9. Hypertension. I will decrease the dose of atenolol to 25 mg daily and hold if heart rate less than 60 per minute. PLAN: d/c home today. s/p ureteral stent. f/u [facility]. Potassium replaced. Problems: Plan Plan of Care Problems Medical Problems: (1) Flank pain Status: Acute (2) Hypokalemia Status: Acute (3) Nephrolithiasis Status: Acute Comment Review of Relevant I have reviewed the following items tammy (where applicable) has been applied. Labs Laboratory Tests Test 12/14/16 05:10 White Blood Count 10.2 x10^3/uL (4.0-11.0) Red Blood Count 3.53 x10^6/uL (3.50-5.40) Hemoglobin 10.8 g/dL (12.0-15.5) Hematocrit 31.4 % (36.0-47.0) Mean Corpuscular Volume 89 fL (79-100) Mean Corpuscular Hemoglobin 31 pg (25-35) Mean Corpuscular Hemoglobin Concent 35 g/dL (31-37) Red Cell Distribution Width 13.3 % (11.5-14.5) Platelet Count 193 x10^3/uL (140-400) Neutrophils (%) (Auto) 81 % (31-73) Lymphocytes (%) (Auto) 11 % (24-48) Monocytes (%) (Auto) 7 % (0-9) Eosinophils (%) (Auto) 0 % (0-3) Basophils (%) (Auto) 0 % (0-3) Neutrophils # (Auto) 8.3 x10^3uL (1.8-7.7) Lymphocytes # (Auto) 1.2 x10^3/uL (1.0-4.8) Monocytes # (Auto) 0.8 x10^3/uL (0.0-1.1) Eosinophils # (Auto) 0.0 x10^3/uL (0.0-0.7) Basophils # (Auto) 0.0 x10^3/uL (0.0-0.2) Sodium Level 148 mmol/L (136-145) Potassium Level 3.5 mmol/L (3.5-5.1) Chloride Level 111 mmol/L (98-107) Carbon Dioxide Level 28 mmol/L (21-32) Anion Gap 9 (6-14) Blood Urea Nitrogen 10 mg/dL (7-20) Creatinine 0.7 mg/dL (0.6-1.0) Estimated GFR (Cockcroft-Gault) 103.3 BUN/Creatinine Ratio 14 (6-20) Glucose Level 108 mg/dL (70-99) Calcium Level 8.4 mg/dL (8.5-10.1) Total Bilirubin 0.8 mg/dL (0.2-1.0) Aspartate Amino Transf (AST/SGOT) 23 U/L (15-37) Alanine Aminotransferase (ALT/SGPT) 31 U/L (14-59) Alkaline Phosphatase 102 U/L (46-116) Total Protein 5.9 g/dL (6.4-8.2) Albumin 2.9 g/dL (3.4-5.0) Albumin/Globulin Ratio 1.0 (1.0-1.7) Medications Current Medications Acetaminophen (Tylenol) 650 mg PRN Q6HRS PRN PO MILD PAIN / TEMP; Start at 10:45 Aspirin (Children'S Aspirin) 81 mg DAILYWBKFT PO Last administered on 11:18; Start 12/13/16 at 11:00 Atenolol (Tenormin) 25 mg DAILY PO Last administered on 12/14/16 08:46; Start 12/13/16 at 12:00 Atenolol (Tenormin) 50 mg DAILY PO ; Start 12/13/16 at 11:00; Stop 12/13/16 at 11:12; Status DC Colestipol HCl (Colestid) 1 gm BID@0800,2000 PO Last administered on 12/14/16 08:45; Start 12/13/16 at 20:00 Diltiazem HCl (Cardizem 24hr Cd) 180 mg DAILY PO Last administered on 11:18; Start 12/13/16 at 11:00 Famotidine (Pepcid) 20 mg HS PO Last administered on 12/13/16 21:27; Start at 21:00 Multivitamins (Thera M Plus) 1 tab DAILY PO Last administered on 12/14/16 08: 47; Start 12/14/16 at 09:00 Potassium Chloride 20 meq/ Sodium Chloride 1,010 ml @ 125 mls/hr Q8H5M IV Last administered on 12/13/16 11:18; Start 12/13/16 at 11:00; Stop 12/13/16 at 15:29; Status DC Potassium Chloride/Sodium Chloride 1,000 ml @ 125 mls/hr Q8H IV Last administered on 12/13/16 21:28; Start 12/13/16 at 15:30 Potassium Chloride (Klor-Con) 20 meq BIDWMEALS PO Last administered on 08:46; Start 12/13/16 at 10:45; Stop 12/20/16 at 08:01 Vitals/I & O Vital Sign - Last 24 Hours 12/13/16 12/13/16 12/13/16 12/13/16 10:15 10:45 11:00 11:15 Pulse 56 63 62 67 B/P (MAP) 141/42 (75) 134/79 (97) 147/72 117/77 (90) 12/13/16 12/13/16 12/13/16 12/13/16 11:18 11:19 11:45 12:44 Pulse 62 67 71 70 B/P (MAP) 147/72 147/72 136/77 (96) 134/75 (94) 12/13/16 12/13/16 12/13/16 12/13/16 15:15 19:00 20:00 23:08 Temp 98.0 98.1 98.1 98.0 98.1 98.1 Pulse 71 67 73 Resp 17 18 18 B/P (MAP) 136/77 (96) 137/74 (95) 132/81 (98) Pulse Ox 96 98 98 O2 Delivery Room Air Room Air Room Air Room Air 12/14/16 12/14/16 12/14/16 12/14/16 03:05 07:00 08:46 08:49 Temp 98.2 97.6 98.2 97.6 Pulse 55 51 51 52 Resp 18 18 B/P (MAP) 129/70 (89) 129/76 (93) 129/76 Pulse Ox 96 98 O2 Delivery Room Air Room Air Intake and Output 12/13/16 12/13/16 12/14/16 14:59 22:59 06:59 Intake Total 900 ml 360 ml 1625 ml Output Total 1000 ml 400 ml 1100 ml Balance -100 ml -40 ml 525 ml LANDEN MAYES MD Dec 14, 2016 10:07
[2016-12-14] MEDS ORDERED: HYDR-2758 PO (10:12)
--- NOTE | 2016-12-14 10:36 | PDOC ---
PROGRESS NOTES Subjective Subjective Pt. feeling well Objective Objective Vital Signs Date Time Temp Pulse Resp B/P (MAP) Pulse Ox O2 Delivery O2 Flow Rate FiO2 12/14/16 08:49 52 12/14/16 08:46 129/76 12/14/16 07:00 97.6 18 98 Room Air 97.6 12/13/16 08:50 10 Intake and Output 12/14/16 07:00 Intake Total 2885 ml Output Total 2500 ml Balance 385 ml Intake Oral 1360 ml IV Total 1525 ml Output Urine Total 2500 ml Physical Exam Physical Exam Minimal right stent discomfort Plan Plan of Care Follow up with Dr. Pinzon or Dr. Burnett in 1-2 weeks for further treatment of left ureteral stone Problems Medical Problems: (1) Flank pain Status: Acute (2) Hypokalemia Status: Acute (3) Nephrolithiasis Status: Acute Comment Review of Relevant I have reviewed the following items tammy (where applicable) has been applied. Labs Laboratory Tests Test 12/12/16 21:15 12/13/16 05:40 12/14/16 05:10 Urine Collection Type Unknown Urine Color Yellow Urine Clarity Clear Urine pH 6.0 Urine Specific [place] 1.010 Urine Protein Negative mg/dL (NEG-TRACE) Urine Glucose (UA) Negative mg/dL (NEG) Urine Ketones (Stick) Negative mg/dL (NEG) Urine Blood Moderate (NEG) Urine Nitrite Negative (NEG) Urine Bilirubin Negative (NEG) Urine Urobilinogen Dipstick 0.2 mg/dL (0.2 mg/dL) Urine Leukocyte Esterase Trace (NEG) Urine RBC 11-20 /HPF (0-2) Urine WBC 5-10 /HPF (0-4) Urine Squamous Epithelial Cells Few /LPF Urine Bacteria 0 /HPF (0-FEW) Urine Mucus Slight /LPF White Blood Count 6.8 x10^3/uL (4.0-11.0) 10.2 x10^3/uL (4.0-11.0) Red Blood Count 3.83 x10^6/uL (3.50-5.40) 3.53 x10^6/uL (3.50-5.40) Hemoglobin 11.5 g/dL (12.0-15.5) 10.8 g/dL (12.0-15.5) Hematocrit 35.3 % (36.0-47.0) 31.4 % (36.0-47.0) Mean Corpuscular Volume 92 fL (79-100) 89 fL (79-100) Mean Corpuscular Hemoglobin 30 pg (25-35) 31 pg (25-35) Mean Corpuscular Hemoglobin Concent 33 g/dL (31-37) 35 g/dL (31-37) Red Cell Distribution Width 13.4 % (11.5-14.5) 13.3 % (11.5-14.5) Platelet Count 178 x10^3/uL (140-400) 193 x10^3/uL (140-400) Neutrophils (%) (Auto) 48 % (31-73) 81 % (31-73) Lymphocytes (%) (Auto) 41 % (24-48) 11 % (24-48) Monocytes (%) (Auto) 7 % (0-9) 7 % (0-9) Eosinophils (%) (Auto) 4 % (0-3) 0 % (0-3) Basophils (%) (Auto) 0 % (0-3) 0 % (0-3) Neutrophils # (Auto) 3.3 x10^3uL (1.8-7.7) 8.3 x10^3uL (1.8-7.7) Lymphocytes # (Auto) 2.8 x10^3/uL (1.0-4.8) 1.2 x10^3/uL (1.0-4.8) Monocytes # (Auto) 0.5 x10^3/uL (0.0-1.1) 0.8 x10^3/uL (0.0-1.1) Eosinophils # (Auto) 0.3 x10^3/uL (0.0-0.7) 0.0 x10^3/uL (0.0-0.7) Basophils # (Auto) 0.0 x10^3/uL (0.0-0.2) 0.0 x10^3/uL (0.0-0.2) Sodium Level 148 mmol/L (136-145) 148 mmol/L (136-145) Potassium Level 3.3 mmol/L (3.5-5.1) 3.5 mmol/L (3.5-5.1) Chloride Level 113 mmol/L (98-107) 111 mmol/L (98-107) Carbon Dioxide Level 28 mmol/L (21-32) 28 mmol/L (21-32) Anion Gap 7 (6-14) 9 (6-14) Blood Urea Nitrogen 10 mg/dL (7-20) 10 mg/dL (7-20) Creatinine 0.8 mg/dL (0.6-1.0) 0.7 mg/dL (0.6-1.0) Estimated GFR (Cockcroft-Gault) 88.5 103.3 BUN/Creatinine Ratio 13 (6-20) 14 (6-20) Glucose Level 91 mg/dL (70-99) 108 mg/dL (70-99) Calcium Level 7.9 mg/dL (8.5-10.1) 8.4 mg/dL (8.5-10.1) Total Bilirubin 1.0 mg/dL (0.2-1.0) 0.8 mg/dL (0.2-1.0) Aspartate Amino Transf (AST/SGOT) 26 U/L (15-37) 23 U/L (15-37) Alanine Aminotransferase (ALT/SGPT) 35 U/L (14-59) 31 U/L (14-59) Alkaline Phosphatase 99 U/L (46-116) 102 U/L (46-116) Total Protein 5.9 g/dL (6.4-8.2) 5.9 g/dL (6.4-8.2) Albumin 2.6 g/dL (3.4-5.0) 2.9 g/dL (3.4-5.0) Albumin/Globulin Ratio 0.8 (1.0-1.7) 1.0 (1.0-1.7) Laboratory Tests Test 12/14/16 05:10 White Blood Count 10.2 x10^3/uL (4.0-11.0) Red Blood Count 3.53 x10^6/uL (3.50-5.40) Hemoglobin 10.8 g/dL (12.0-15.5) Hematocrit 31.4 % (36.0-47.0) Mean Corpuscular Volume 89 fL (79-100) Mean Corpuscular Hemoglobin 31 pg (25-35) Mean Corpuscular Hemoglobin Concent 35 g/dL (31-37) Red Cell Distribution Width 13.3 % (11.5-14.5) Platelet Count 193 x10^3/uL (140-400) Neutrophils (%) (Auto) 81 % (31-73) Lymphocytes (%) (Auto) 11 % (24-48) Monocytes (%) (Auto) 7 % (0-9) Eosinophils (%) (Auto) 0 % (0-3) Basophils (%) (Auto) 0 % (0-3) Neutrophils # (Auto) 8.3 x10^3uL (1.8-7.7) Lymphocytes # (Auto) 1.2 x10^3/uL (1.0-4.8) Monocytes # (Auto) 0.8 x10^3/uL (0.0-1.1) Eosinophils # (Auto) 0.0 x10^3/uL (0.0-0.7) Basophils # (Auto) 0.0 x10^3/uL (0.0-0.2) Sodium Level 148 mmol/L (136-145) Potassium Level 3.5 mmol/L (3.5-5.1) Chloride Level 111 mmol/L (98-107) Carbon Dioxide Level 28 mmol/L (21-32) Anion Gap 9 (6-14) Blood Urea Nitrogen 10 mg/dL (7-20) Creatinine 0.7 mg/dL (0.6-1.0) Estimated GFR (Cockcroft-Gault) 103.3 BUN/Creatinine Ratio 14 (6-20) Glucose Level 108 mg/dL (70-99) Calcium Level 8.4 mg/dL (8.5-10.1) Total Bilirubin 0.8 mg/dL (0.2-1.0) Aspartate Amino Transf (AST/SGOT) 23 U/L (15-37) Alanine Aminotransferase (ALT/SGPT) 31 U/L (14-59) Alkaline Phosphatase 102 U/L (46-116) Total Protein 5.9 g/dL (6.4-8.2) Albumin 2.9 g/dL (3.4-5.0) Albumin/Globulin Ratio 1.0 (1.0-1.7) Medications Current Medications Hydromorphone HCl (Dilaudid) 0.5 mg PRN Q1HR PRN IV SEVERE PAIN Last administered on 12/12/16 09:19; Start 12/12/16 at 09:15 Ondansetron HCl (Zofran) 4 mg 1X ONCE IV Last administered on 12/12/16 09:17 ; Start 12/12/16 at 09:15; Stop 12/12/16 at 09:16; Status DC Sodium Chloride 500 ml @ 500 mls/hr 1X ONCE IV Last administered on 09:15; Start 12/12/16 at 09:15; Stop 12/12/16 at 10:14; Status DC Potassium Chloride (Klor-Con) 40 meq 1X ONCE PO Last administered on 11:37; Start 12/12/16 at 10:30; Stop 12/12/16 at 10:31; Status DC Potassium Chloride 100 ml @ 100 mls/hr Q1H IV Last administered on 12/12/16 13:18; Start 12/12/16 at 11:00; Stop 12/12/16 at 12:59; Status DC Ondansetron HCl (Zofran) 4 mg PRN Q8HRS PRN IV NAUSEA/VOMITING; Start 12/12/16 at 10:45; Stop 12/13/16 at 10:44; Status DC Morphine Sulfate 2 mg PRN Q2HR PRN IV PAIN Last administered on 12/12/16 22:50 ; Start 12/12/16 at 10:45; Stop 12/13/16 at 10:44; Status DC Sodium Chloride 1,000 ml @ 125 mls/hr Q8H IV Last administered on 12/13/16 10 :15; Start 12/12/16 at 10:35; Stop 12/13/16 at 10:34; Status DC Lidocaine HCl (Glydo (Lidocaine) Jelly) 6 nelson STK-MED ONCE .ROUTE Last administered on 12/13/16 08:16; Start 12/13/16 at 06:42; Stop 12/13/16 at 06:43 ; Status DC Iohexol (Omnipaque 300 Mg/ml) 50 ml STK-MED ONCE .ROUTE Last administered on 08:16; Start 12/13/16 at 06:42; Stop 12/13/16 at 06:43; Status DC Dexamethasone Sodium Phosphate (Decadron) 20 mg STK-MED ONCE .ROUTE ; Start at 06:57; Stop 12/13/16 at 06:58; Status DC Lidocaine HCl (Lidocaine Pf 2% Vial) 5 ml STK-MED ONCE .ROUTE ; Start 12/13/16 at 06:57; Stop 12/13/16 at 06:58; Status DC Ondansetron HCl (Zofran) 4 mg STK-MED ONCE .ROUTE ; Start 12/13/16 at 06:57; Stop 12/13/16 at 06:58; Status DC Propofol 20 ml @ As Directed STK-MED ONCE IV ; Start 12/13/16 at 06:57; Stop at 06:58; Status DC Fentanyl Citrate (Fentanyl 2ml Vial) 100 mcg STK-MED ONCE .ROUTE ; Start at 06:57; Stop 12/13/16 at 06:58; Status DC Ephedrine Sulfate 50 mg STK-MED ONCE IV ; Start 12/13/16 at 08:09; Stop at 08:10; Status DC Ondansetron HCl (Zofran) 4 mg PRN Q6HRS PRN IV NAUSEA/VOMITING; Start 12/13/16 at 08:15; Stop 12/14/16 at 08:14; Status DC Fentanyl Citrate (Fentanyl 2ml Vial) 25 mcg PRN Q5MIN PRN IV MILD PAIN; Start 12/13/16 at 08:15; Stop 12/14/16 at 08:14; Status DC Fentanyl Citrate (Fentanyl 2ml Vial) 50 mcg PRN Q5MIN PRN IV MODERATE PAIN; Start 12/13/16 at 08:15; Stop 12/14/16 at 08:14; Status DC Morphine Sulfate 1 mg PRN Q10MIN PRN IV SEVERE PAIN; Start 12/13/16 at 08:15; Stop 12/14/16 at 08:14; Status DC Ringer's Solution 1,000 ml @ 30 mls/hr Q24H IV ; Start 12/13/16 at 08:10; Stop 12/13/16 at 20:09; Status DC Lidocaine HCl 2 ml PRN 1X PRN ID PRIOR TO IV START; Start 12/13/16 at 08:15; Stop 12/14/16 at 08:14; Status DC Hydromorphone HCl (Dilaudid) 0.5 mg PRN Q10MIN PRN IV SEV PAIN, Second choice; Start 12/13/16 at 08:15; Stop 12/14/16 at 08:14; Status DC Prochlorperazine Edisylate (Compazine) 5 mg PACU PRN PRN IV NAUSEA, MRX1; Start 12/13/16 at 08:15; Stop 12/14/16 at 08:14; Status DC Lidocaine HCl (Glydo (Lidocaine) Jelly) 1 nelson STK-MED ONCE MM Last administered on 12/13/16 08:16; Start 12/13/16 at 08:16; Stop 12/13/16 at 08:27 ; Status DC Potassium Chloride 20 meq/ Sodium Chloride 1,010 ml @ 125 mls/hr Q8H5M IV Last administered on 12/13/16 11:18; Start 12/13/16 at 11:00; Stop 12/13/16 at 15:29; Status DC Aspirin (Children'S Aspirin) 81 mg DAILYWBKFT PO Last administered on 11:18; Start 12/13/16 at 11:00 Atenolol (Tenormin) 50 mg DAILY PO ; Start 12/13/16 at 11:00; Stop 12/13/16 at 11:12; Status DC Colestipol HCl (Colestid) 1 gm BID@0800,2000 PO Last administered on 12/14/16 08:45; Start 12/13/16 at 20:00 Diltiazem HCl (Cardizem 24hr Cd) 180 mg DAILY PO Last administered on 11:18; Start 12/13/16 at 11:00 Famotidine (Pepcid) 20 mg HS PO Last administered on 12/13/16 21:27; Start at 21:00 Potassium Chloride (Klor-Con) 20 meq BIDWMEALS PO Last administered on 08:46; Start 12/13/16 at 10:45; Stop 12/20/16 at 08:01 Multivitamins (Thera M Plus) 1 tab DAILY PO Last administered on 12/14/16 08: 47; Start 12/14/16 at 09:00 Acetaminophen (Tylenol) 650 mg PRN Q6HRS PRN PO MILD PAIN / TEMP; Start at 10:45 Atenolol (Tenormin) 25 mg DAILY PO Last administered on 12/14/16 08:46; Start 12/13/16 at 12:00 Potassium Chloride/Sodium Chloride 1,000 ml @ 125 mls/hr Q8H IV Last administered on 12/13/16 21:28; Start 12/13/16 at 15:30 Active Scripts Active Reported Hydrochlorothiazide Tablet (Hydrochlorothiazide) 12.5 Mg Tablet 25 Mg PO DAILY Potassium Chloride 20 Meq Tab.er.prt 20 Meq PO BID Daily Vitamin (Multivitamin) 1 Each Tablet 1 Each PO DAILY Pepcid (Famotidine) 20 Mg Tablet 20 Mg PO HS Cardizem Cd (Diltiazem Hcl) 180 Mg Cap.er.24h 180 Mg PO DAILY Colestid (Colestipol Hcl) 1 Gm Tablet 1 Gm PO BID Atenolol 50 Mg Tablet 50 Mg PO DAILY Aspirin 81 Mg Tab.chew 81 Mg PO DAILYWBKFT Vitals/I & O Vital Sign - Last 24 Hours 12/13/16 12/13/16 12/13/16 12/13/16 10:45 11:00 11:15 11:18 Pulse 63 62 67 62 B/P (MAP) 134/79 (97) 147/72 117/77 (90) 147/72 12/13/16 12/13/16 12/13/16 12/13/16 11:19 11:45 12:44 15:15 Temp 98.0 98.0 Pulse 67 71 70 71 Resp 17 B/P (MAP) 147/72 136/77 (96) 134/75 (94) 136/77 (96) Pulse Ox 96 O2 Delivery Room Air 12/13/16 12/13/16 12/13/16 12/14/16 19:00 20:00 23:08 03:05 Temp 98.1 98.1 98.2 98.1 98.1 98.2 Pulse 67 73 55 Resp 18 18 18 B/P (MAP) 137/74 (95) 132/81 (98) 129/70 (89) Pulse Ox 98 98 96 O2 Delivery Room Air Room Air Room Air Room Air 12/14/16 12/14/1612/14/17 07:00 08:46 08:49 Temp 97.6 97.6 Pulse 51 51 52 Resp 18 B/P (MAP) 129/76 (93) 129/76 Pulse Ox 98 O2 Delivery Room Air Intake and Output 12/13/16 12/13/16 12/14/16 15:00 23:00 07:00 Intake Total 900 ml 360 ml 1625 ml Output Total 1000 ml 400 ml 1100 ml Balance -100 ml -40 ml 525 ml KRIS NIEVES MD Dec 14, 2016 10:36
[2016-12-14 11:00] VITALS: BP 130/83
[2016-12-14 15:00] VITALS: BP 159/86
--- NOTE | 2016-12-16 14:20 | PDOC3 ---
IM DISCHARGE SUMMARY Date of Admission Date of Admission Date of Admission: Dec 12, 2016 at 10:39 Date of Discharge Date of Discharge november Primary Diagnosis Primary Diagnosis Problems Medical Problems: (1) Flank pain Status: Acute (2) Hypokalemia Status: Acute (3) Nephrolithiasis Status: Acute Problems: Consults Consults Dr.Steve Villalta urology Procedures Procedures Operative Note pre-op dx-right ureteral stone procedure-cystoscopy, right retrograde pyelogram, right ureteral stent placement surgeon-radha issa-general Brief hospital course Brief hospital course This 61 year old female who presented with flank pain rt side , n/v, low potassium 2.7.she was given iv potassium, .CT scan showed rt kidney stone and ureteral stone. urology was consulted, she had cystoscopy ,and rt ureteral stent placement, she was referred to urology out pt.she did improve and discharged home. For more details regarding the past history, family history, social history, surgical history and other details, please refer to History and Physical. Allergy Allergies Coded Allergies Type Severity Reaction Last Updated Verified baclofen Allergy Intermediate Rash 10/20/16 Yes chlorzoxazone Allergy Intermediate Rash 10/20/16 Yes cyclobenzaprine Allergy Intermediate Rash 10/20/16 Yes ibuprofen Allergy Intermediate Rash 10/20/16 Yes metaxalone Allergy Intermediate Rash 03/01/14 Yes methocarbamol Allergy Intermediate Rash 03/01/14 Yes orphenadrine Allergy Intermediate Rash 03/01/14 Yes Follow up in 5 days. DISPOSITION: Home Comments Discharge Management - 25 minutes. For other details please refer to discharge instructions LANDEN MAYES MD Dec 16, 2016 14:20
== END 2016-12-14 14:45 | disposition home or self-care (01) | DRG 694 ==
LOC: ER 08:18 → 5 SOUTH 10:39 → OBSVTOIN 10:39
PROVIDERS: ADMIT Internal Medicine; ATTEND Internal Medicine
PROC: 0T768DZ Dilation of Right Ureter with Intraluminal Device, Via Natural or Artificial Opening Endoscopic (ICD-10-PCS; 2016-12-13)
PROC: BT1D1ZZ Fluoroscopy of Right Kidney, Ureter and Bladder using Low Osmolar Contrast (ICD-10-PCS; principal; 2016-12-13 08:00)
DX: N13.2 Hydronephrosis with renal and ureteral calculous obstruction (principal); K91.2 Postsurgical malabsorption, not elsewhere classified; E46 Unspecified protein-calorie malnutrition; K76.0 Fatty (change of) liver, not elsewhere classified; I10 Essential (primary) hypertension; E87.6 Hypokalemia; E27.8 Other specified disorders of adrenal gland; Z87.442 Personal history of urinary calculi; Z91.19 Patient's noncompliance with other medical treatment and regimen; Z90.49 Acquired absence of other specified parts of digestive tract; Z88.4 Allergy status to anesthetic agent; Z88.8 Allergy status to other drugs, medicaments and biological substances; Z68.32 Body mass index [BMI] 32.0-32.9, adult
CPT/HCPCS: 36415; 74176; 74420; 80048; 80053; 81001; 85027; 87086; 93005; 96361; 96374; 96375; C1769; C2617; G0378; G0379; J1100; J1170; J2270; J2405; J2704; J3010; J3480; J7030; J7040; Q9967; 99285-25

== ENCOUNTER 2017-09-29 11:06 | Inpatient (IN) | payer BC ==
[2017-09-29 12:54] LABS: ADD MAN DIFF? NO
[2017-09-29 12:57] LABS: BASO % 1 % (0-3); EOS # 0.2 x10^3/uL (0.0-0.7); EOS % 4 % (0-3); HEMATOCRIT 36.6 % (36.0-47.0); HEMOGLOBIN 12.2 g/dL (12.0-15.5); LYMPH # 1.7 x10^3/uL (1.0-4.8); LYMPH % 27 % (24-48); MEAN CORPUSCULAR HEMOGLOBIN 29 pg (25-35); MEAN CORPUSCULAR HGB CONC 33 g/dL (31-37); MEAN CORPUSCULAR VOLUME 88 fL (79-100); MONO # 0.4 x10^3/uL (0.0-1.1); MONO % 7 % (0-9); NEUT # 3.8 x10^3uL (1.8-7.7); NEUT % 61 % (31-73); PLATELET COUNT 248 x10^3/uL (140-400); RED BLOOD COUNT 4.15 x10^6/uL (3.50-5.40); RED CELL DISTRIBUTION WIDTH 13.4 % (11.5-14.5); WHITE BLOOD COUNT 6.2 x10^3/uL (4.0-11.0)
[2017-09-29] MEDS: MECLIZINE HCL 12.5 MG TABLET. PO (13:01)
[2017-09-29 13:07] LABS: INR 1.1 (0.8-1.1); PROTHROMBIN TIME PATIENT 13.8 SEC (11.7-14.0)
[2017-09-29 13:15] LABS: ALBUMIN 3.3 g/dL (3.4-5.0); ALBUMIN/GLOBULIN RATIO 0.8 (1.0-1.7); ALK PHOS 141 U/L (46-116); ALT (SGPT) 47 U/L (14-59); ANION GAP 9 (6-14); AST (SGOT) 33 U/L (15-37); BLOOD UREA NITROGEN 8 mg/dL (7-20); BUN/CREATININE RATIO 9 (6-20); CALCIUM 8.9 mg/dL (8.5-10.1); CARBON DIOXIDE 30 mmol/L (21-32); CHLORIDE 105 mmol/L (98-107); CREATININE 0.9 mg/dL (0.6-1.0); GLUCOSE 107 mg/dL (70-99); LIPASE 35 U/L (73-393); SODIUM 144 mmol/L (136-145); TOTAL BILIRUBIN 1.1 mg/dL (0.2-1.0); TOTAL PROTEIN 7.5 g/dL (6.4-8.2)
[2017-09-29 13:16] LABS: TROPONINI 0.052 ng/mL (0.000-0.055)
[2017-09-29 13:22] LABS: CKMB INDEX 0.6 % (0-4); CKMB MASS 1.3 ng/mL (0.0-3.6); CREATINE KINASE 201 U/L (26-192)
[2017-09-29 13:23] LABS: POTASSIUM 2.8 mmol/L (3.5-5.1)
[2017-09-29 13:31] LABS: BILIRUBIN,URINE NEGATIVE (NEG); CLARITY,URINE CLOUDY; COLOR,URINE YELLOW; GLUCOSE,URINE NEGATIVE (NEG); NITRITE,URINE POSITIVE (NEG); PH,URINE 5.5; PROTEIN,URINE NEGATIVE (NEG-TRACE); UROBILINOGEN,URINE 0.2 mg/dL (0.2 mg/dL)
[2017-09-29 13:42] LABS: BACTERIA,URINE MANY /HPF (0-FEW); RBC,URINE 0 /HPF (0-2); SQUAMOUS EPITHELIAL CELL,UR MOD /LPF; WBC,URINE TNTC /HPF (0-4)
[2017-09-29 13:58] LABS: MAGNESIUM 1.7 mg/dL (1.8-2.4)
[2017-09-29] MEDS ORDERED: ONDANSETRON PF 4 MG/2 ML VIAL. IV (14:30)
[2017-09-29] MEDS ORDERED: ACETAMINOPHEN 325 MG TABLET. PO (14:30)
[2017-09-29] MEDS: POTASSIUM CHLORIDE 20 MEQ TABLET.ER. PO ×4 (16:33→20:48)
[2017-09-29] MEDS: MAGNESIUM SULFATE 2GM 50 ML IV (16:34)
[2017-09-29] MEDS ORDERED: HYDROcodone/APAP 5/325MG 1 TAB TABLET PO (20:00)
[2017-09-29] MEDS: cefTRIAXone IV Push 1 GM VIAL. IVP (20:19)
[2017-09-29] MEDS: COLESTIPOL HCL 1 GM TABLET PO (20:46)
[2017-09-29] MEDS: FAMOTIDINE 20 MG TABLET. PO (20:49)
[2017-09-29 21:06] LABS: TROPONINI 0.053 ng/mL (0.000-0.055)
[2017-09-30 06:11] LABS: ADD MAN DIFF? NO
[2017-09-30 06:45] LABS: ALBUMIN 2.8 g/dL (3.4-5.0); ALBUMIN/GLOBULIN RATIO 0.8 (1.0-1.7); ALK PHOS 130 U/L (46-116); ALT (SGPT) 43 U/L (14-59); ANION GAP 6 (6-14); AST (SGOT) 32 U/L (15-37); BLOOD UREA NITROGEN 10 mg/dL (7-20); BUN/CREATININE RATIO 11 (6-20); CALCIUM 8.9 mg/dL (8.5-10.1); CARBON DIOXIDE 30 mmol/L (21-32); CHLORIDE 108 mmol/L (98-107); CREATININE 0.9 mg/dL (0.6-1.0); GLUCOSE 102 mg/dL (70-99); POTASSIUM 3.7 mmol/L (3.5-5.1); SODIUM 144 mmol/L (136-145); TOTAL BILIRUBIN 0.9 mg/dL (0.2-1.0); TOTAL PROTEIN 6.1 g/dL (6.4-8.2)
[2017-09-30 06:50] LABS: TROPONINI 0.055 ng/mL (0.000-0.055)
[2017-09-30 06:50] LABS: BASO % 1 % (0-3); EOS # 0.4 x10^3/uL (0.0-0.7); EOS % 6 % (0-3); HEMATOCRIT 33.4 % (36.0-47.0); HEMOGLOBIN 11.1 g/dL (12.0-15.5); LYMPH # 1.9 x10^3/uL (1.0-4.8); LYMPH % 34 % (24-48); MEAN CORPUSCULAR HEMOGLOBIN 30 pg (25-35); MEAN CORPUSCULAR HGB CONC 33 g/dL (31-37); MEAN CORPUSCULAR VOLUME 89 fL (79-100); MONO # 0.5 x10^3/uL (0.0-1.1); MONO % 10 % (0-9); NEUT # 2.8 x10^3uL (1.8-7.7); NEUT % 49 % (31-73); PLATELET COUNT 223 x10^3/uL (140-400); RED BLOOD COUNT 3.76 x10^6/uL (3.50-5.40); WHITE BLOOD COUNT 5.6 x10^3/uL (4.0-11.0)
[2017-09-30] MEDS: hydroCHLOROthiazide 25 MG TABLET PO (08:25)
[2017-09-30] MEDS: ATENOLOL 50 MG TABLET. PO (08:26)
[2017-09-30] MEDS: POTASSIUM CHLORIDE 20 MEQ TABLET.ER. PO ×2 (08:27→20:48)
[2017-09-30] MEDS: MULTIVITAMIN with MINERAL TABLET. PO (08:27)
[2017-09-30] MEDS: ASPIRIN CHEWABLE 81 MG TABLET. PO (08:27)
[2017-09-30 12:49] LABS: THYROID STIM HORMONE (TSH) 2.058 uIU/mL (0.358-3.74)
[2017-09-30] MEDS: COLESTIPOL HCL 1 GM TABLET PO ×2 (17:41→20:48)
[2017-09-30] MEDS: cefTRIAXone IV Push 1 GM VIAL. IVP (17:42)
[2017-09-30] MEDS: LACTOBACILLUS RHAMNOSUS GG 1 CAPSULE. PO (20:47)
[2017-09-30] MEDS: LATANOPROST 0.005% OPHTH SOLUTION 2.5ML BOTTLE. OU (20:48)
[2017-09-30] MEDS: FAMOTIDINE 20 MG TABLET. PO (20:48)
[2017-10-01] MEDS: hydroCHLOROthiazide 25 MG TABLET PO (09:00)
[2017-10-01] MEDS: MULTIVITAMIN with MINERAL TABLET. PO (09:03)
[2017-10-01] MEDS: POTASSIUM CHLORIDE 20 MEQ TABLET.ER. PO (09:03)
[2017-10-01] MEDS: LACTOBACILLUS RHAMNOSUS GG 1 CAPSULE. PO (09:04)
[2017-10-01] MEDS: ASPIRIN CHEWABLE 81 MG TABLET. PO (09:04)
[2017-10-01] MEDS: ATENOLOL 50 MG TABLET. PO (09:04)
[2017-10-01] MEDS: COLESTIPOL HCL 1 GM TABLET PO (09:15)
== END 2017-10-01 14:17 | disposition home or self-care (01) | DRG 690 ==
LOC: ER 11:06 → 6 SOUTH 14:06
DX: N39.0 Urinary tract infection, site not specified (principal); K91.2 Postsurgical malabsorption, not elsewhere classified; R42 Dizziness and giddiness; E78.5 Hyperlipidemia, unspecified; E87.6 Hypokalemia; I10 Essential (primary) hypertension; Z82.3 Family history of stroke; Z90.49 Acquired absence of other specified parts of digestive tract; Z90.710 Acquired absence of both cervix and uterus; M19.90 Unspecified osteoarthritis, unspecified site; Z88.1 Allergy status to other antibiotic agents; Z88.8 Allergy status to other drugs, medicaments and biological substances
CPT/HCPCS: 36415; 70450; 71045; 80053; 81001; 82553; 83690; 83735; 84443; 84484; 85025; 85610; 87086; 93005; 93306; 96374; 97161-GP; 99285; 99285-25; J0696; J3475; J8597

== ENCOUNTER 2019-10-24 13:26 | Inpatient (IN) | payer SELFPAY ==
[~2019-10-24] VITALS: Ht 175.3 cm; Wt 71.5 kg
[~2019-10-24 13:26] MED LIST changes: -HYDR-2758 PO; +HYDR-2761 PO; +HYDR12.58 PO; +LATA2.5D3 EACHEYE; +OXYB10TA26 PO
[2019-10-24 14:41] LABS: BILIRUBIN,URINE SMALL (NEG); CLARITY,URINE TURBID; COLOR,URINE ORANGE; NITRITE,URINE POSITIVE (NEG); PH,URINE 5.5 (<5.0-8.0); PROTEIN,URINE 100 mg/dL (NEG-TRACE)
[2019-10-24 14:47] LABS: WBC,URINE TNTC /HPF (0-4)
[2019-10-24 14:49] LABS: BACTERIA,URINE MANY /HPF (0-FEW)
[2019-10-24] MEDS ORDERED: IV NORMAL SALINE 1000ML BAG 1,000 ML IV ONE ×2 (15:00→16:45)
[2019-10-24] MEDS ORDERED: ONDANSETRON PF 4 MG/2 ML VIAL. IVP ONE (15:00)
[2019-10-24] MEDS ORDERED: cefTRIAXone IV Push 1 GM VIAL. IVP ONE (15:00)
[2019-10-24 15:09] LABS: BASO % 0 % (0-3); EOS % 0 % (0-3); HEMATOCRIT 34.8 % (36.0-47.0); HEMOGLOBIN 11.5 g/dL (12.0-15.5); LYMPH # 2.1 x10^3/uL (1.0-4.8); LYMPH % 11 % (24-48); MEAN CORPUSCULAR HEMOGLOBIN 29 pg (25-35); MEAN CORPUSCULAR HGB CONC 33 g/dL (31-37); MEAN CORPUSCULAR VOLUME 89 fL (79-100); MONO # 1.6 x10^3/uL (0.0-1.1); MONO % 8 % (0-9); NEUT # 15.3 x10^3/uL (1.8-7.7); NEUT % 81 % (31-73); PLATELET COUNT 234 x10^3/uL (140-400); RED BLOOD COUNT 3.93 x10^6/uL (3.50-5.40); RED CELL DISTRIBUTION WIDTH 13.8 % (11.5-14.5)
[2019-10-24 15:23] LABS: PROTHROMBIN TIME PATIENT 14.7 SEC (11.7-14.0)
[2019-10-24 15:29] LABS: ALBUMIN 3.2 g/dL (3.4-5.0); ALBUMIN/GLOBULIN RATIO 0.7 (1.0-1.7); CALCIUM 9.4 mg/dL (8.5-10.1); CREATININE 2.1 mg/dL (0.6-1.0); GFR 28.8; TOTAL BILIRUBIN 4.1 mg/dL (0.2-1.0); TOTAL PROTEIN 7.7 g/dL (6.4-8.2)
[2019-10-24 15:44] LABS: POTASSIUM 2.4 mmol/L (3.5-5.1)
[2019-10-24] MEDS ORDERED: MAGNESIUM SULFATE 2GM 50 ML IV ONE (15:45)
[2019-10-24] MEDS ORDERED: POTASSIUM CHLORIDE 20MEQ 100 ML IV ONE (15:45)
--- NOTE | 2019-10-24 15:48 | PHYS DOC ---
Past Medical History Past Medical History: Hypertension, Other Additional Past Medical Histor: bowel obstructions, small bowel syndrome, cerebral palsy Past Surgical History: Colectomy, Other Additional Past Surgical Histo: breast reduction Smoking Status: Never Smoker Alcohol Use: None Drug Use: None General Adult EDM: Chief Complaint: ABDOMINAL PAIN HPI: HPI: Patient is a 64 year old female who presented to ER today for evaluation of left flank pain, frequent urination since Wednesday. Patient felt like she passed a kidney stone on Wednesday. Patient feels weak and nauseous, went to see her family doctor today who sent her to diagnostic imaging center for CT scan however she came here instead. Patient denies any fever, no chest pain, no trouble breathing. Patient has not been exposed to anybody who tested positive for COVID-19. Review of Systems: Review of Systems: Constitutional: Denies fever or chills. [] Eyes: Denies change in visual acuity. [] HENT: Denies nasal congestion or sore throat. [] Respiratory: Denies cough or shortness of breath. [] Cardiovascular: Denies chest pain or edema. [] GI: Positive for left flank pain, nausea. No diarrhea : Positive for frequent urination. Musculoskeletal: Denies back pain or joint pain. [] Integument: Denies rash. [] Neurologic: Denies headache, focal weakness or sensory changes. [] Endocrine: Denies polyuria or polydipsia. [] Lymphatic: Denies swollen glands. [] Psychiatric: Denies depression or anxiety. [] Heart Score: Risk Factors: Risk Factors: DM, Current or recent (<one month) smoker, HTN, HLP, family history of CAD, obesity. Risk Scores: Score 0 - 3: 2.5% MACE over next 6 weeks - Discharge Home Score 4 - 6: 20.3% MACE over next 6 weeks - Admit for Clinical Observation Score 7 - 10: 72.7% MACE over next 6 weeks - Early Invasive Strategies Current Medications: Current Medications Medications (Trade) Dose Ordered Sig/Lester Start Time Stop Time Status Last Admin Dose Admin Ceftriaxone Sodium (Rocephin) 1 gm 1X ONCE 10/24/19 15:00 10/24/19 15:01 DC 10/24/19 15:31 1 GM Magnesium Sulfate 50 ml @ 25 mls/hr 1X ONCE 10/24/19 15:45 10/24/19 17:44 UNV Ondansetron HCl (Zofran) 4 mg 1X ONCE 10/24/19 15:00 10/24/19 15:01 DC 10/24/19 15:32 4 MG Potassium Chloride/Water 100 ml @ 50 mls/hr 1X ONCE 10/24/19 15:45 10/24/19 17:44 UNV Sodium Chloride 1,000 ml @ 1,000 mls/hr 1X ONCE 10/24/19 15:00 10/24/19 15:59 10/24/19 15:32 1,000 MLS/HR Allergies: Allergies: Allergies Coded Allergies Type Severity Reaction Last Updated Verified baclofen Allergy Intermediate Rash 10/20/16 Yes chlorzoxazone Allergy Intermediate Rash 10/20/16 Yes cyclobenzaprine Allergy Intermediate Rash 10/20/16 Yes ibuprofen Allergy Intermediate Rash 10/20/16 Yes metaxalone Allergy Intermediate Rash 03/01/14 Yes methocarbamol Allergy Intermediate Rash 03/01/14 Yes orphenadrine Allergy Intermediate Rash 03/01/14 Yes Physical Exam: PE: Constitutional: Well developed, well nourished, no acute distress, non-toxic appearance. [] HENT: Normocephalic, atraumatic, bilateral external ears normal, oropharynx moist, no oral exudates, nose normal. [] Eyes: PERRLA, EOMI, conjunctiva normal, no discharge. [] Neck: Normal range of motion, no tenderness, supple, no stridor. [] Cardiovascular:Heart rate regular rhythm, no murmur [] Lungs & Thorax: Bilateral breath sounds clear to auscultation [] Abdomen: Bowel sounds normal, soft, no tenderness, no masses, no pulsatile masses. [] Skin: Warm, dry, no erythema, no rash. [] Back: No tenderness, no CVA tenderness. [] Extremities: No tenderness, no cyanosis, no clubbing, ROM intact, no edema. [] Neurologic: Alert and oriented X 3, normal motor function, normal sensory function, no focal deficits noted. [] Psychologic: Affect normal, judgement normal, mood normal. [] Current Patient Data: Labs: Laboratory Tests Test 10/24/19 14:29 10/24/19 14:55 Urine Collection Type Unknown Urine Color [place] Urine Clarity Turbid Urine pH 5.5 (<5.0-8.0) Urine Specific [place] 1.015 (1.000-1.030) Urine Protein 100 mg/dL (NEG-TRACE) Urine Glucose (UA) Negative mg/dL (NEG) Urine Ketones (Stick) Trace mg/dL (NEG) Urine Blood Large (NEG) Urine Nitrite Positive (NEG) Urine Bilirubin Small (NEG) Urine Urobilinogen Dipstick 1.0 mg/dL (0.2 mg/dL) Urine Leukocyte Esterase Large (NEG) Urine RBC /HPF (0-2) Urine WBC Tntc /HPF (0-4) Urine Bacteria Many /HPF (0-FEW) Urine Mucus Mod /LPF White Blood Count 19.0 x10^3/uL (4.0-11.0) H Red Blood Count 3.93 x10^6/uL (3.50-5.40) Hemoglobin 11.5 g/dL (12.0-15.5) L Hematocrit 34.8 % (36.0-47.0) L Mean Corpuscular Volume 89 fL (79-100) Mean Corpuscular Hemoglobin 29 pg (25-35) Mean Corpuscular Hemoglobin Concent 33 g/dL (31-37) Red Cell Distribution Width 13.8 % (11.5-14.5) Platelet Count 234 x10^3/uL (140-400) Neutrophils (%) (Auto) 81 % (31-73) H Lymphocytes (%) (Auto) 11 % (24-48) L Monocytes (%) (Auto) 8 % (0-9) Eosinophils (%) (Auto) 0 % (0-3) Basophils (%) (Auto) 0 % (0-3) Neutrophils # (Auto) 15.3 x10^3/uL (1.8-7.7) H Lymphocytes # (Auto) 2.1 x10^3/uL (1.0-4.8) Monocytes # (Auto) 1.6 x10^3/uL (0.0-1.1) H Eosinophils # (Auto) 0.0 x10^3/uL (0.0-0.7) Basophils # (Auto) 0.0 x10^3/uL (0.0-0.2) Platelet Estimate Pending Prothrombin Time 14.7 SEC (11.7-14.0) H Prothrombin Time INR 1.2 (0.8-1.1) H Activated Partial Thromboplast Time 29 SEC (24-38) Sodium Level 136 mmol/L (136-145) Potassium Level 2.4 mmol/L (3.5-5.1) *L Chloride Level 97 mmol/L (98-107) L Carbon Dioxide Level 26 mmol/L (21-32) Anion Gap 13 (6-14) Blood Urea Nitrogen 19 mg/dL (7-20) Creatinine 2.1 mg/dL (0.6-1.0) H Estimated GFR (Cockcroft-Gault) 28.8 BUN/Creatinine Ratio 9 (6-20) Glucose Level 112 mg/dL (70-99) H Calcium Level 9.4 mg/dL (8.5-10.1) Magnesium Level 1.5 mg/dL (1.8-2.4) L Total Bilirubin 4.1 mg/dL (0.2-1.0) H Aspartate Amino Transferase (AST) 23 U/L (15-37) Alanine Aminotransferase (ALT) 36 U/L (14-59) Alkaline Phosphatase 117 U/L (46-116) H Total Protein 7.7 g/dL (6.4-8.2) Albumin 3.2 g/dL (3.4-5.0) L Albumin/Globulin Ratio 0.7 (1.0-1.7) L Lipase 30 U/L (73-393) L Laboratory Tests 10/24/19 14:55 Laboratory Tests 10/24/19 14:55 Vital Signs: Vital Signs Date Time Temp Pulse Resp B/P (MAP) Pulse Ox O2 Delivery O2 Flow Rate FiO2 10/24/19 15:03 98.6 80 16 104/63 (77) 96 Room Air 98.6 EKG: EKG: [] Radiology/Procedures: Radiology/Procedures: [][facility] [address] [place], [place] [id number] IMAGING REPORT Signed PATIENT: MARCO ANTONIO WEAVER ACCOUNT: [id number] : 1955 LOCATION: ER AGE: 64 SEX: F EXAM STATUS: REG ER ORD. PHYSICIAN: KAITLYNN ADDISON DO REASON: LEFT FLANK PAIN PROCEDURE: CT ABDOMEN PELVIS WO CONTRAST CT ABDOMEN AND PELVIS WITHOUT IV CONTRAST History: Left flank pain, history of renal stones Comparison: CT abdomen pelvis dated 05/26/2013, 05/26/2013. Technique: Noncontrast helical CT of the abdomen and pelvis was performed from the lung bases through the ischial tuberosities. Coronal and sagittal reconstructions were obtained. Abdomen Findings: Limited evaluation of the solid organs without IV contrast. The visualized lung bases are clear. The liver is enlarged measuring 29.9 cm. Hepatic steatosis. Left hepatic cyst better seen on prior contrasted imaging (on current image 51, series 2). Hepatic calcifications. The gallbladder has an inferior, medial course similar to prior, but there is no radiopaque stone, obvious wall thickening, or pericholecystic fluid. Pancreatic calcifications may relate to chronic pancreatitis. Splenic granulomas. Unchanged 2.2 x 1.8 cm left adrenal nodule. Nonspecific trace bilateral perinephric fat stranding. 2.2 cm right superior pole renal cyst. Numerous bilateral nonobstructing renal calculi measuring up to 0.8 cm on the left. No hydronephrosis. No obstructive uropathy. The stomach is underdistended limiting evaluation for wall thickening. The visualized loops of small bowel are normal. There appears to be a right hemicolectomy. The remaining loops of large bowel are normal. There is no evidence of bowel obstruction. Appendix is normal. There is no free fluid. There is no mesenteric or retroperitoneal adenopathy. The abdominal aorta is normal in caliber. Mild atherosclerosis of the abdominal aorta and its branches. Redemonstration of calcification in the right greater than left abdominal wall musculature. Pelvis Findings: Urinary bladder is normal. No pelvic free fluid. There is no pelvic or inguinal adenopathy. Redemonstration of a 2.3 x 2.0 cm left anterior pelvic subcutaneous soft tissue nodule likely related to sebaceous cyst. There is no acute bony abnormality. Severe right and moderate left hip arthrosis. Dextrocurvature of the thoracolumbar spine. Moderate multilevel lower lumbar facet arthrosis. IMPRESSION: 1. Bilateral nonobstructive renal calculi. No evidence of obstructive uropathy. 2. Trace left greater than right perinephric fat stranding, a nonspecific finding. This was not clearly seen on 2017 CT. Correlate with patient's urinalysis. 3. Hepatomegaly with steatosis. 4. Pancreatic calcifications may relate to chronic pancreatitis. 5. Unchanged left adrenal nodule. PQRS Compliance Statement: One or more of the following individualized dose reduction techniques were utilized for this examination: 1. Automated exposure control 2. Adjustment of the mA and/or kV according to patient size 3. Use of iterative reconstruction technique Electronically signed by: Vaughn Gipson MD (10/24/2019 4:22 PM) [id number] DICTATED and SIGNED BY: VAUGHN GIPSON MD DATE: 10/24/19 1622 Course & Med Decision Making: Course & Med Decision Making Pertinent Labs and Imaging studies reviewed. (See chart for details) Patient is a 64-year-old female who was evaluated in the ER today due to left flank pain, work-up showed that she had pyelonephritis, no obstructive ureteral stone. She was found to be hypokalemic and hypomagnesemia . kidney function abnormal as well. Patient was given IV fluid, IV Rocephin, replace her potassium and her magnesium. Patient WILL be admitted to hospital. Discussed with Dr. GERBER Riley Disclaimer: Rosemary Disclaimer: This electronic medical record was generated, in whole or in part, using a voice recognition dictation system. Departure Departure Impression: Primary Impression: Acute pyelonephritis Additional Impression: Acute renal insufficiency Disposition: ADMITTED INPATIENT Admitting Physician: Jj Cantrell Condition: IMPROVED Referrals: KARIN ARGUELLO (PCP) KAITLYNN ADDISON DO October 24, 2019 15:48
--- NOTE | 2019-10-24 16:25 | RAD ---
CT ABDOMEN AND PELVIS WITHOUT IV CONTRAST History: Left flank pain, history of renal stones Comparison: CT abdomen pelvis dated 05/26/2013, 05/26/2013. Technique: Noncontrast helical CT of the abdomen and pelvis was performed from the lung bases through the ischial tuberosities. Coronal and sagittal reconstructions were obtained. Abdomen Findings: Limited evaluation of the solid organs without IV contrast. The visualized lung bases are clear. The liver is enlarged measuring 29.9 cm. Hepatic steatosis. Left hepatic cyst better seen on prior contrasted imaging (on current image 51, series 2). Hepatic calcifications. The gallbladder has an inferior, medial course similar to prior, but there is no radiopaque stone, obvious wall thickening, or pericholecystic fluid. Pancreatic calcifications may relate to chronic pancreatitis. Splenic granulomas. Unchanged 2.2 x 1.8 cm left adrenal nodule. Nonspecific trace bilateral perinephric fat stranding. 2.2 cm right superior pole renal cyst. Numerous bilateral nonobstructing renal calculi measuring up to 0.8 cm on the left. No hydronephrosis. No obstructive uropathy. The stomach is underdistended limiting evaluation for wall thickening. The visualized loops of small bowel are normal. There appears to be a right hemicolectomy. The remaining loops of large bowel are normal. There is no evidence of bowel obstruction. Appendix is normal. There is no free fluid. There is no mesenteric or retroperitoneal adenopathy. The abdominal aorta is normal in caliber. Mild atherosclerosis of the abdominal aorta and its branches. Redemonstration of calcification in the right greater than left abdominal wall musculature. Pelvis Findings: Urinary bladder is normal. No pelvic free fluid. There is no pelvic or inguinal adenopathy. Redemonstration of a 2.3 x 2.0 cm left anterior pelvic subcutaneous soft tissue nodule likely related to sebaceous cyst. There is no acute bony abnormality. Severe right and moderate left hip arthrosis. Dextrocurvature of the thoracolumbar spine. Moderate multilevel lower lumbar facet arthrosis. IMPRESSION: 1. Bilateral nonobstructive renal calculi. No evidence of obstructive uropathy. 2. Trace left greater than right perinephric fat stranding, a nonspecific finding. This was not clearly seen on 2017 CT. Correlate with patient's urinalysis. 3. Hepatomegaly with steatosis. 4. Pancreatic calcifications may relate to chronic pancreatitis. 5. Unchanged left adrenal nodule. PQRS Compliance Statement: One or more of the following individualized dose reduction techniques were utilized for this examination: 1. Automated exposure control 2. Adjustment of the mA and/or kV according to patient size 3. Use of iterative reconstruction technique Electronically signed by: Vaughn Gipson MD (10/24/2019 4:22 PM) [id number]
[2019-10-24] MEDS: IV NORMAL SALINE 1000ML BAG 1,000 ML IV SCH (17:05)
[2019-10-24] MEDS ORDERED: ONDANSETRON PF 4 MG/2 ML VIAL. IV PRN (17:15)
[2019-10-24 18:00] LABS: % BANDS 3 % (0-9); % LYMPHS 11 % (24-48); % MONOS 3 % (0-10); % SEGS 83 % (35-66); PLT ESTIMATE ADEQUATE (ADEQUATE)
[2019-10-24 20:00] VITALS: BP 111/62
[2019-10-24] MEDS: ACETAMINOPHEN 325 MG TABLET. PO PRN (21:00)
[2019-10-24 23:00] VITALS: BP_SYST 100; BP_SYST 127; BP_DIAS 52; BP_DIAS 68
[2019-10-25 03:00] VITALS: BP 127/68
[2019-10-25] MEDS: IV NORMAL SALINE 1000ML BAG 1,000 ML IV SCH (03:30)
[2019-10-25 05:20] LABS: ALBUMIN 2.8 g/dL (3.4-5.0); ALBUMIN/GLOBULIN RATIO 0.7 (1.0-1.7); CREATININE 1.8 mg/dL (0.6-1.0); GFR 34.4; TOTAL BILIRUBIN 3.1 mg/dL (0.2-1.0); TOTAL PROTEIN 7.1 g/dL (6.4-8.2)
[2019-10-25] MEDS: ACETAMINOPHEN 325 MG TABLET. PO PRN ×2 (05:29→16:29)
[2019-10-25 05:48] LABS: POTASSIUM 2.7 mmol/L (3.5-5.1)
[2019-10-25] MEDS ORDERED: NORMAL SALINE IV SCH (06:45)
[2019-10-25] MEDS ORDERED: POTASSIUM ACETATE IV SCH (06:45)
[2019-10-25] MEDS ORDERED: POTASSIUM CHLORIDE 20MEQ 100 ML IV ONE (07:00)
[2019-10-25 07:12] LABS: BASO # 0.1 x10^3/uL (0.0-0.2); BASO % 1 % (0-3); EOS % 0 % (0-3); HEMOGLOBIN 10.9 g/dL (12.0-15.5); LYMPH # 1.6 x10^3/uL (1.0-4.8); LYMPH % 12 % (24-48); MEAN CORPUSCULAR HEMOGLOBIN 30 pg (25-35); MEAN CORPUSCULAR HGB CONC 33 g/dL (31-37); MEAN CORPUSCULAR VOLUME 90 fL (79-100); MONO # 1.2 x10^3/uL (0.0-1.1); MONO % 9 % (0-9); NEUT # 10.3 x10^3/uL (1.8-7.7); NEUT % 78 % (31-73); PLATELET COUNT 184 x10^3/uL (140-400); RED BLOOD COUNT 3.68 x10^6/uL (3.50-5.40); RED CELL DISTRIBUTION WIDTH 13.8 % (11.5-14.5); WHITE BLOOD COUNT 13.1 x10^3/uL (4.0-11.0)
[2019-10-25 07:15] VITALS: BP 112/65
[2019-10-25] MEDS: POTASSIUM CHLORIDE 30 MEQ in IV NORMAL SALINE 1000ML BAG 1,000 ML IV SCH ×3 (08:30→21:03)
--- NOTE | 2019-10-25 09:23 | PDOC ---
Infectious Disease Note Vital Sign Vital Signs Vital Signs Date Time Temp Pulse Resp B/P (MAP) Pulse Ox O2 Delivery O2 Flow Rate FiO2 10/25/19 07:15 98.4 72 112/65 (81) 96 Room Air 98.4 10/24/19 18:00 15 Labs Lab Laboratory Tests Test 10/24/19 14:29 10/24/19 14:55 10/24/19 21:20 10/25/19 03:10 Urine Collection Type Unknown Urine Color [place] Urine Clarity Turbid Urine pH 5.5 (<5.0-8.0) Urine Specific [place] 1.015 (1.000-1.030) Urine Protein 100 mg/dL (NEG-TRACE) Urine Glucose (UA) Negative mg/dL (NEG) Urine Ketones (Stick) Trace mg/dL (NEG) Urine Blood Large (NEG) Urine Nitrite Positive (NEG) Urine Bilirubin Small (NEG) Urine Urobilinogen Dipstick 1.0 mg/dL (0.2 mg/dL) Urine Leukocyte Esterase Large (NEG) Urine RBC /HPF (0-2) Urine WBC Tntc /HPF (0-4) Urine Bacteria Many /HPF (0-FEW) Urine Mucus Mod /LPF White Blood Count 19.0 x10^3/uL (4.0-11.0) 13.1 x10^3/uL (4.0-11.0) Red Blood Count 3.93 x10^6/uL (3.50-5.40) 3.68 x10^6/uL (3.50-5.40) Hemoglobin 11.5 g/dL (12.0-15.5) 10.9 g/dL (12.0-15.5) Hematocrit 34.8 % (36.0-47.0) 33.0 % (36.0-47.0) Mean Corpuscular Volume 89 fL (79-100) 90 fL (79-100) Mean Corpuscular Hemoglobin 29 pg (25-35) 30 pg (25-35) Mean Corpuscular Hemoglobin Concent 33 g/dL (31-37) 33 g/dL (31-37) Red Cell Distribution Width 13.8 % (11.5-14.5) 13.8 % (11.5-14.5) Platelet Count 234 x10^3/uL (140-400) 184 x10^3/uL (140-400) Neutrophils (%) (Auto) 81 % (31-73) 78 % (31-73) Lymphocytes (%) (Auto) 11 % (24-48) 12 % (24-48) Monocytes (%) (Auto) 8 % (0-9) 9 % (0-9) Eosinophils (%) (Auto) 0 % (0-3) 0 % (0-3) Basophils (%) (Auto) 0 % (0-3) 1 % (0-3) Neutrophils # (Auto) 15.3 x10^3/uL (1.8-7.7) 10.3 x10^3/uL (1.8-7.7) Lymphocytes # (Auto) 2.1 x10^3/uL (1.0-4.8) 1.6 x10^3/uL (1.0-4.8) Monocytes # (Auto) 1.6 x10^3/uL (0.0-1.1) 1.2 x10^3/uL (0.0-1.1) Eosinophils # (Auto) 0.0 x10^3/uL (0.0-0.7) 0.0 x10^3/uL (0.0-0.7) Basophils # (Auto) 0.0 x10^3/uL (0.0-0.2) 0.1 x10^3/uL (0.0-0.2) Segmented Neutrophils % 83 % (35-66) Band Neutrophils % 3 % (0-9) Lymphocytes % 11 % (24-48) Monocytes % 3 % (0-10) Platelet Estimate Adequate (ADEQUATE) Prothrombin Time 14.7 SEC (11.7-14.0) Prothromb Time International Ratio 1.2 (0.8-1.1) Activated Partial Thromboplast Time 29 SEC (24-38) Sodium Level 136 mmol/L (136-145) 143 mmol/L (136-145) Potassium Level 2.4 mmol/L (3.5-5.1) 2.7 mmol/L (3.5-5.1) Chloride Level 97 mmol/L (98-107) 104 mmol/L (98-107) Carbon Dioxide Level 26 mmol/L (21-32) 30 mmol/L (21-32) Anion Gap 13 (6-14) 9 (6-14) Blood Urea Nitrogen 19 mg/dL (7-20) 19 mg/dL (7-20) Creatinine 2.1 mg/dL (0.6-1.0) 1.8 mg/dL (0.6-1.0) Estimated GFR (Cockcroft-Gault) 28.8 34.4 BUN/Creatinine Ratio 9 (6-20) 11 (6-20) Glucose Level 112 mg/dL (70-99) 87 mg/dL (70-99) Calcium Level 9.4 mg/dL (8.5-10.1) 9.0 mg/dL (8.5-10.1) Magnesium Level 1.5 mg/dL (1.8-2.4) Total Bilirubin 4.1 mg/dL (0.2-1.0) 3.1 mg/dL (0.2-1.0) Aspartate Amino Transf (AST/SGOT) 23 U/L (15-37) 27 U/L (15-37) Alanine Aminotransferase (ALT/SGPT) 36 U/L (14-59) 32 U/L (14-59) Alkaline Phosphatase 117 U/L (46-116) 112 U/L (46-116) Total Protein 7.7 g/dL (6.4-8.2) 7.1 g/dL (6.4-8.2) Albumin 3.2 g/dL (3.4-5.0) 2.8 g/dL (3.4-5.0) Albumin/Globulin Ratio 0.7 (1.0-1.7) 0.7 (1.0-1.7) Lipase 30 U/L (73-393) Lactic Acid Level 1.0 mmol/L (0.4-2.0) Micro IMPRESSION: 1. Bilateral nonobstructive renal calculi. No evidence of obstructive uropathy. 2. Trace left greater than right perinephric fat stranding, a nonspecific finding. This was not clearly seen on 2017 CT. Correlate with patient's urinalysis. 3. Hepatomegaly with steatosis. 4. Pancreatic calcifications may relate to chronic pancreatitis. 5. Unchanged left adrenal nodule. Objective Assessment Fever Leukocytosis Pyelonephritis - s/p Rocephin UTI- POA FRANDY Elevated Bilirubin Plan Plan of Care Continue Rocephin F/u labs and cults Bilirubin per primary D/w nursing Thank you # [phone] DAJA CALVIN MD October 25, 2019 09:23
--- NOTE | 2019-10-25 09:48 | PDOC2 ---
CONSULT Date of Consult Date of Consult DATE: 10/25/19 TIME: 09:48 Reason for Consult Reason for Consult: FRANDY Source Source: Chart review, Patient History of Present Illness Reason for Visit: Patient is a 64-year-old AA female with history of hypertension,, chronic short bowel syndrome admitted as she was not feeling well, having fever and back pain,and noted blood in her urine She reports she is not aware of Dx of CKD (per Dr. Cantrell's note has CKD ) but she dis used to get kidney stones since she underwent surgeries on her intestine . She did not had any recent episodes and last time she had kidney stones was in 2018 . Yesterday she diidnt notice blood in urine but noticed again this am Denies any Flank or SP pain, No dysuria. No N/V/ or abdominal pain. She has short bowel syndrome Reports her home Bp used to be significantly high but well controlled recently. No new med changes per Pt. Denies use of NSAID's, no OTC health supplements She noticed that her BP are running low since hospitalizations . Denies any CP or SOB . Her last hospitalization was in 2018 WBC 16,000, fever 101.6 and she also had a urine leukocytes was positive. A CT scan shows pyelonephritis and some kidney stones, but nonobstructive. PCP- Dr. Alvarez Past Medical History Past Medical History Hypertension, short bowel syndrome, kidney stones and glaucoma. Had multiple abdominal surgeries resulting in short bowel syndrome, breast reduction. Cardiovascular: HTN, Hyperlipidemia, Other Pulmonary: No pertinent hx CENTRAL NERVOUS SYSTEM: Other GI: Other Heme/Onc: No pertinent hx Hepatobiliary: No pertinent hx Psych: No pertinent hx Musculoskeletal: Osteoarthritis Rheumatologic: No pertinent hx Infectious disease: No pertinent hx Renal/: No pertinent hx Endocrine: No pertinent hx Past Surgical History Past Surgical History: Hysterectomy, Other Family History Family History: Stroke Social History ALCOHOL: occassional Drugs: None Lives: with Family Current Problem List Problem List Problems Medical Problems: (1) Acute pyelonephritis Status: Acute (2) Acute renal insufficiency Status: Acute Current Medications Current Medications Current Medications Sodium Chloride 1,000 ml @ 1,000 mls/hr 1X ONCE IV Last administered on 10/24/19at 15:32; Start 10/24/19 at 15:00; Stop 10/24/19 at 15:59; Status DC Ondansetron HCl (Zofran) 4 mg 1X ONCE IVP Last administered on 10/24/19at 15:32; Start 10/24/19 at 15:00; Stop 10/24/19 at 15:01; Status DC Ceftriaxone Sodium (Rocephin) 1 gm 1X ONCE IVP Last administered on 10/24/19at 15:31; Start 10/24/19 at 15:00; Stop 10/24/19 at 15:01; Status DC Magnesium Sulfate 50 ml @ 25 mls/hr 1X ONCE IV Last administered on 10/24/19at 18:27; Start 10/24/19 at 15:45; Stop 10/24/19 at 17:44; Status DC Potassium Chloride/Water 100 ml @ 50 mls/hr 1X ONCE IV Last administered on 10/24/19at 16:26; Start 10/24/19 at 15:45; Stop 10/24/19 at 17:44; Status DC Sodium Chloride 1,000 ml @ 1,000 mls/hr 1X ONCE IV Last administered on 10/24/19at 18:26; Start 10/24/19 at 16:45; Stop 10/24/19 at 17:44; Status DC Ondansetron HCl (Zofran) 4 mg PRN Q8HRS PRN IV NAUSEA/VOMITING; Start 10/24/19 at 17:15; Stop 10/25/19 at 17:14 Sodium Chloride 1,000 ml @ 125 mls/hr Q8H IV Last administered on 10/25/19at 03:30; Start 10/24/19 at 17:05; Stop 10/25/19 at 06:42; Status DC Acetaminophen (Tylenol) 650 mg Q8HRS PRN PO FEVER > 100.5'F Last administered on 10/25/19at 05:29; Start 10/24/19 at 20:15 Potassium Chloride/Water 100 ml @ 50 mls/hr 1X ONCE IV Last administered on 10/25/19at 08:29; Start 10/25/19 at 07:00; Stop 10/25/19 at 08:59; Status DC Potassium Acetate 30 meq/Sodium Chloride 1,015 ml @ 125 mls/hr Q8H8M IV ; Start 10/25/19 at 06:45; Stop 10/25/19 at 06:50; Status DC Potassium Chloride 30 meq/ Sodium Chloride 1,015 ml @ 125 mls/hr Q8H8M IV Last administered on 10/25/19at 08:30; Start 10/25/19 at 06:50 Active Scripts Active Hydrocodone-Apap 5-325 (Hydrocodone Bit/Acetaminophen) 1 Each Tablet 1 Tab PO PRN Q6HRS PRN Reported Latanoprost 2.5 Ml Drops 1 Drop EACHEYE QHS Oxybutynin Chloride Er (Oxybutynin Chloride) 10 Mg Tab.er.24 1 Tab PO DAILY Hydrochlorothiazide Tablet (Hydrochlorothiazide) 12.5 Mg Tablet 25 Mg PO DAILY Potassium Chloride 20 Meq Tab.er.prt 20 Meq PO BID Daily Vitamin (Multivitamin) 1 Each Tablet 1 Each PO DAILY Pepcid (Famotidine) 20 Mg Tablet 20 Mg PO HS Cardizem Cd (Diltiazem Hcl) 180 Mg Cap.er.24h 180 Mg PO DAILY Colestid (Colestipol Hcl) 1 Gm Tablet 1 Gm PO BID Atenolol 50 Mg Tablet 50 Mg PO DAILY Aspirin 81 Mg Tab.chew 81 Mg PO DAILYWBKFT Allergies Allergies: Coded Allergies: baclofen (Verified Allergy, Intermediate, Rash, 10/20/16) chlorzoxazone (Verified Allergy, Intermediate, Rash, 10/20/16) cyclobenzaprine (Verified Allergy, Intermediate, Rash, 10/20/16) ibuprofen (Verified Allergy, Intermediate, Rash, 10/20/16) metaxalone (Verified Allergy, Intermediate, Rash, 03/01/14) methocarbamol (Verified Allergy, Intermediate, Rash, 03/01/14) orphenadrine (Verified Allergy, Intermediate, Rash, 03/01/14) ROS Review of System Per HPI, rest negative Physical Exam Physical Exam CONSTITUTIONAL: She is cooperative, no acute distress. She is sitting upright in bed. HEENT: she has normal conjunctivae. Oral cavity, pharynx is clear. NECK: Supple. Good range of motion, no JVD. LUNGS: Clear to auscultation. HEART: S1, S2. ABDOMEN: Soft, positive bowel sounds, no guarding, no rebound, no CVA tenderness. EXTREMITIES: Without clubbing or cyanosis. No gross edema. SKIN: Warm to touch without signs of rash. Vital Signs Vital Signs Date Time Temp Pulse Resp B/P (MAP) Pulse Ox O2 Delivery O2 Flow Rate FiO2 10/25/19 07:15 98.4 72 112/65 (81) 96 Room Air 98.4 10/24/19 18:00 15 Assessment & Plan FRANDY - Etiology Vasomotor/Pyelonephritis Creat Normal until 2018 in [facility] records, Baseline renal function unknown to me IVF, supportive care, Strict I/O, avoid nephrotoxins HypoKalemia- replacing HyPoMg - Replace Nephrolithiasis -Last symptomatic episode in [address] Bilateral nonobstructive renal calculi. No evidence of obstructive uropathy. Pyelonephritis- On Abx Trace left greater than right perinephric fat stranding, Urinary tract infection HTN Chronic short Bowel Syndrome 2/2 Intest surgeries Labs Labs Laboratory Tests Test 10/24/19 14:29 10/24/19 14:55 10/24/19 21:20 10/25/19 03:10 Urine Collection Type Unknown Urine Color [place] Urine Clarity Turbid Urine pH 5.5 (<5.0-8.0) Urine Specific [place] 1.015 (1.000-1.030) Urine Protein 100 mg/dL (NEG-TRACE) Urine Glucose (UA) Negative mg/dL (NEG) Urine Ketones (Stick) Trace mg/dL (NEG) Urine Blood Large (NEG) Urine Nitrite Positive (NEG) Urine Bilirubin Small (NEG) Urine Urobilinogen Dipstick 1.0 mg/dL (0.2 mg/dL) Urine Leukocyte Esterase Large (NEG) Urine RBC /HPF (0-2) Urine WBC Tntc /HPF (0-4) Urine Bacteria Many /HPF (0-FEW) Urine Mucus Mod /LPF White Blood Count 19.0 x10^3/uL (4.0-11.0) 13.1 x10^3/uL (4.0-11.0) Red Blood Count 3.93 x10^6/uL (3.50-5.40) 3.68 x10^6/uL (3.50-5.40) Hemoglobin 11.5 g/dL (12.0-15.5) 10.9 g/dL (12.0-15.5) Hematocrit 34.8 % (36.0-47.0) 33.0 % (36.0-47.0) Mean Corpuscular Volume 89 fL (79-100) 90 fL (79-100) Mean Corpuscular Hemoglobin 29 pg (25-35) 30 pg (25-35) Mean Corpuscular Hemoglobin Concent 33 g/dL (31-37) 33 g/dL (31-37) Red Cell Distribution Width 13.8 % (11.5-14.5) 13.8 % (11.5-14.5) Platelet Count 234 x10^3/uL (140-400) 184 x10^3/uL (140-400) Neutrophils (%) (Auto) 81 % (31-73) 78 % (31-73) Lymphocytes (%) (Auto) 11 % (24-48) 12 % (24-48) Monocytes (%) (Auto) 8 % (0-9) 9 % (0-9) Eosinophils (%) (Auto) 0 % (0-3) 0 % (0-3) Basophils (%) (Auto) 0 % (0-3) 1 % (0-3) Neutrophils # (Auto) 15.3 x10^3/uL (1.8-7.7) 10.3 x10^3/uL (1.8-7.7) Lymphocytes # (Auto) 2.1 x10^3/uL (1.0-4.8) 1.6 x10^3/uL (1.0-4.8) Monocytes # (Auto) 1.6 x10^3/uL (0.0-1.1) 1.2 x10^3/uL (0.0-1.1) Eosinophils # (Auto) 0.0 x10^3/uL (0.0-0.7) 0.0 x10^3/uL (0.0-0.7) Basophils # (Auto) 0.0 x10^3/uL (0.0-0.2) 0.1 x10^3/uL (0.0-0.2) Segmented Neutrophils % 83 % (35-66) Band Neutrophils % 3 % (0-9) Lymphocytes % 11 % (24-48) Monocytes % 3 % (0-10) Platelet Estimate Adequate (ADEQUATE) Prothrombin Time 14.7 SEC (11.7-14.0) Prothromb Time International Ratio 1.2 (0.8-1.1) Activated Partial Thromboplast Time 29 SEC (24-38) Sodium Level 136 mmol/L (136-145) 143 mmol/L (136-145) Potassium Level 2.4 mmol/L (3.5-5.1) 2.7 mmol/L (3.5-5.1) Chloride Level 97 mmol/L (98-107) 104 mmol/L (98-107) Carbon Dioxide Level 26 mmol/L (21-32) 30 mmol/L (21-32) Anion Gap 13 (6-14) 9 (6-14) Blood Urea Nitrogen 19 mg/dL (7-20) 19 mg/dL (7-20) Creatinine 2.1 mg/dL (0.6-1.0) 1.8 mg/dL (0.6-1.0) Estimated GFR (Cockcroft-Gault) 28.8 34.4 BUN/Creatinine Ratio 9 (6-20) 11 (6-20) Glucose Level 112 mg/dL (70-99) 87 mg/dL (70-99) Calcium Level 9.4 mg/dL (8.5-10.1) 9.0 mg/dL (8.5-10.1) Magnesium Level 1.5 mg/dL (1.8-2.4) Total Bilirubin 4.1 mg/dL (0.2-1.0) 3.1 mg/dL (0.2-1.0) Aspartate Amino Transf (AST/SGOT) 23 U/L (15-37) 27 U/L (15-37) Alanine Aminotransferase (ALT/SGPT) 36 U/L (14-59) 32 U/L (14-59) Alkaline Phosphatase 117 U/L (46-116) 112 U/L (46-116) Total Protein 7.7 g/dL (6.4-8.2) 7.1 g/dL (6.4-8.2) Albumin 3.2 g/dL (3.4-5.0) 2.8 g/dL (3.4-5.0) Albumin/Globulin Ratio 0.7 (1.0-1.7) 0.7 (1.0-1.7) Lipase 30 U/L (73-393) Lactic Acid Level 1.0 mmol/L (0.4-2.0) Laboratory Tests Test 10/24/19 14:29 5/5/20 14:55 10/24/19 21:20 10/25/19 03:10 Urine Collection Type Unknown Urine Color [place] Urine Clarity Turbid Urine pH 5.5 (<5.0-8.0) Urine Specific [place] 1.015 (1.000-1.030) Urine Protein 100 mg/dL (NEG-TRACE) Urine Glucose (UA) Negative mg/dL (NEG) Urine Ketones (Stick) Trace mg/dL (NEG) Urine Blood Large (NEG) Urine Nitrite Positive (NEG) Urine Bilirubin Small (NEG) Urine Urobilinogen Dipstick 1.0 mg/dL (0.2 mg/dL) Urine Leukocyte Esterase Large (NEG) Urine RBC /HPF (0-2) Urine WBC Tntc /HPF (0-4) Urine Bacteria Many /HPF (0-FEW) Urine Mucus Mod /LPF White Blood Count 19.0 x10^3/uL (4.0-11.0) 13.1 x10^3/uL (4.0-11.0) Red Blood Count 3.93 x10^6/uL (3.50-5.40) 3.68 x10^6/uL (3.50-5.40) Hemoglobin 11.5 g/dL (12.0-15.5) 10.9 g/dL (12.0-15.5) Hematocrit 34.8 % (36.0-47.0) 33.0 % (36.0-47.0) Mean Corpuscular Volume 89 fL (79-100) 90 fL (79-100) Mean Corpuscular Hemoglobin 29 pg (25-35) 30 pg (25-35) Mean Corpuscular Hemoglobin Concent 33 g/dL (31-37) 33 g/dL (31-37) Red Cell Distribution Width 13.8 % (11.5-14.5) 13.8 % (11.5-14.5) Platelet Count 234 x10^3/uL (140-400) 184 x10^3/uL (140-400) Neutrophils (%) (Auto) 81 % (31-73) 78 % (31-73) Lymphocytes (%) (Auto) 11 % (24-48) 12 % (24-48) Monocytes (%) (Auto) 8 % (0-9) 9 % (0-9) Eosinophils (%) (Auto) 0 % (0-3) 0 % (0-3) Basophils (%) (Auto) 0 % (0-3) 1 % (0-3) Neutrophils # (Auto) 15.3 x10^3/uL (1.8-7.7) 10.3 x10^3/uL (1.8-7.7) Lymphocytes # (Auto) 2.1 x10^3/uL (1.0-4.8) 1.6 x10^3/uL (1.0-4.8) Monocytes # (Auto) 1.6 x10^3/uL (0.0-1.1) 1.2 x10^3/uL (0.0-1.1) Eosinophils # (Auto) 0.0 x10^3/uL (0.0-0.7) 0.0 x10^3/uL (0.0-0.7) Basophils # (Auto) 0.0 x10^3/uL (0.0-0.2) 0.1 x10^3/uL (0.0-0.2) Segmented Neutrophils % 83 % (35-66) Band Neutrophils % 3 % (0-9) Lymphocytes % 11 % (24-48) Monocytes % 3 % (0-10) Platelet Estimate Adequate (ADEQUATE) Prothrombin Time 14.7 SEC (11.7-14.0) Prothromb Time International Ratio 1.2 (0.8-1.1) Activated Partial Thromboplast Time 29 SEC (24-38) Sodium Level 136 mmol/L (136-145) 143 mmol/L (136-145) Potassium Level 2.4 mmol/L (3.5-5.1) 2.7 mmol/L (3.5-5.1) Chloride Level 97 mmol/L (98-107) 104 mmol/L (98-107) Carbon Dioxide Level 26 mmol/L (21-32) 30 mmol/L (21-32) Anion Gap 13 (6-14) 9 (6-14) Blood Urea Nitrogen 19 mg/dL (7-20) 19 mg/dL (7-20) Creatinine 2.1 mg/dL (0.6-1.0) 1.8 mg/dL (0.6-1.0) Estimated GFR (Cockcroft-Gault) 28.8 34.4 BUN/Creatinine Ratio 9 (6-20) 11 (6-20) Glucose Level 112 mg/dL (70-99) 87 mg/dL (70-99) Calcium Level 9.4 mg/dL (8.5-10.1) 9.0 mg/dL (8.5-10.1) Magnesium Level 1.5 mg/dL (1.8-2.4) Total Bilirubin 4.1 mg/dL (0.2-1.0) 3.1 mg/dL (0.2-1.0) Aspartate Amino Transf (AST/SGOT) 23 U/L (15-37) 27 U/L (15-37) Alanine Aminotransferase (ALT/SGPT) 36 U/L (14-59) 32 U/L (14-59) Alkaline Phosphatase 117 U/L (46-116) 112 U/L (46-116) Total Protein 7.7 g/dL (6.4-8.2) 7.1 g/dL (6.4-8.2) Albumin 3.2 g/dL (3.4-5.0) 2.8 g/dL (3.4-5.0) Albumin/Globulin Ratio 0.7 (1.0-1.7) 0.7 (1.0-1.7) Lipase 30 U/L (73-393) Lactic Acid Level 1.0 mmol/L (0.4-2.0) Review All relevant outside records, renal labs, imaging studies, telemetry/EKG's were reviewed. Images Images CT scan abdomen 1. Bilateral nonobstructive renal calculi. No evidence of obstructive uropathy. 2. Trace left greater than right perinephric fat stranding, a nonspecific finding. This was not clearly seen on 2017 CT. Correlate with patient's urinalysis. 3. Hepatomegaly with steatosis. 4. Pancreatic calcifications may relate to chronic pancreatitis. 5. Unchanged left adrenal nodule. MERCEDES GORE MD October 25, 2019 09:48
[2019-10-25] MEDS: cefTRIAXone IV Push 2 GM VIAL. IVP SCH (10:00)
[2019-10-25] MEDS ORDERED: HYDROcodone/APAP 5/325MG 1 TAB TABLET PO PRN (10:15)
--- NOTE | 2019-10-25 10:23 | PDOC ---
Provider Note Provider Note Pt seen.H&P dictated.#[id number] LANDEN MAYES MD October 25, 2019 10:23
[2019-10-25 11:00] VITALS: BP 157/75
[2019-10-25] MEDS: COLESTIPOL HCL 1 GM TABLET PO SCH ×2 (11:00→20:16)
[2019-10-25] MEDS: ATENOLOL 50 MG TABLET. PO SCH (11:00)
--- NOTE | 2019-10-25 11:08 | HP ---
ADMIT DATE: MEDICAL HISTORY AND PHYSICAL LOCATION: . ATTENDING PHYSICIAN: Jj Mayes MD PRIMARY CARE PHYSICIAN: Shay Alvarez MD REASON FOR ADMISSION TO THE HOSPITAL: Pyelonephritis, acute kidney failure, electrolyte imbalance. HISTORY OF PRESENT ILLNESS: The patient is a 64-year-old female and the patient of Dr. Alvarez. She has a history of hypertension, chronic kidney stone, chronic short bowel syndrome and she was not feeling well, having fever and back pain, was brought to the hospital. She had a white count 16,000, fever 101.6 and she also had a urine leukocytes was positive. A CT scan shows pyelonephritis and some kidney stones, but nonobstructive. The patient was started on broad-spectrum IV antibiotics after culture was done. Her kidney also shows some prerenal failure; potassium 2.4, low magnesium, low at 1.4 , this has been corrected. The patient last in the hospital in 2018 almost 2 years ago. PAST MEDICAL HISTORY: Hypertension, short bowel syndrome, kidney stones and glaucoma. PAST SURGICAL HISTORY: Had multiple abdominal surgeries resulting in short bowel syndrome, breast reduction. Had not sure the details of intestine and colon surgery, but she had before. ALLERGIES: TO BACLOFEN, CYCLOBENZAPRINE, IBUPROFEN, METAXALONE, METHOCARBAMOL, ORPHENADRINE, CHLORZOXAZONE. MEDICATIONS AT HOME: She takes eyedrops for glaucoma, latanoprost, oxybutynin 10 mg daily, aspirin 81 mg daily, atenolol 50 mg daily, Colestid 1 gram twice a day, diltiazem 180 mg daily, Pepcid 20 mg daily, hydrochlorothiazide 25 mg, hydrocodone for pain, multivitamin, potassium 20 mEq twice daily. PERSONAL HISTORY: Denies smoking, alcohol or drug abuse. FAMILY HISTORY: Sister has interstitial lung disease and diabetes. REVIEW OF SYSTEMS: Complains of fever. Has some flank pain. Denies any blood in the urine. Rest of the 14-system was reviewed and negative. PHYSICAL EXAMINATION: GENERAL: The patient is not in any distress. VITAL SIGNS: At the time of admission shows temperature 101.8, pulse 80, respirations 20, blood pressure 104/63 and 96 on room air. HEENT: Head is atraumatic. Pupils equal. Oral cavity: No congestion. NECK: Supple. Thyroid not enlarged. JVD not elevated. CHEST: Symmetrical. CARDIOVASCULAR: S1, S2, no murmurs. LUNGS: Clear to auscultation. No wheezing. ABDOMEN: Scars of previous abdominal surgeries. Soft. Bowel sounds present, no mass palpable. BACK: Examination of the back, slight tenderness in the lumbar areas, both. EXTERNAL GENITALIA: No Vargas. RECTAL: Deferred. EXTREMITIES: No calf tenderness. No edema. Pulses 1+. NEUROLOGIC: Moving all extremities. No focal deficits noted. LABORATORY DATA: Shows a white count of 19,000, hemoglobin 11.5 and platelets 234. INR 1.2. Electrolytes are sodium 136, potassium 2.4, chloride 97, bicarbonate 26, anion gap 13, BUN 19, creatinine 2.1 and glucose 112. Lactic acid 1.0, magnesium 1.5, low. LFTs lorrie TB 4.0 other LFt s ok. Lipase was normal. Urine shows large leukocyte esterase, nitrites positive. CT of the abdomen and pelvis shows bilateral nonobstructive kidney stones, no obstruction, left perinephric stranding, possible pyelo, hepatomegaly, pancreatic calcification and unchanged left adrenal nodule, which is 2.2 cm. FINAL IMPRESSION: 1. Pyelonephritis. 2. Prerenal failure secondary to vasomotor insufficiency. 3. Electrolyte imbalance including hypokalemia and hypomagnesemia. 4. Hypertension. 5. Short gut syndrome. 6. History of nonobstructive kidney stones. 7.Sepsis 8.Lorrie total bilirubin PLAN: At this time, was admit to hospital, hydrate with IV fluids. Blood cultures, urine culture, start on Rocephin IV. ID is consulted. The patient will have magnesium and potassium replaced. Monitor and see how the patient's condition improves.CT scan abd and pelvis. JJ MAYES MD DR: RAGHU/kingsley JOB#: [id number] / [id number] SHAY Santizo
[2019-10-25] MEDS: POTASSIUM CHLORIDE 20 MEQ TABLET.ER. PO SCH ×2 (11:16→16:29)
[2019-10-25] MEDS: ASPIRIN CHEWABLE 81 MG TABLET. PO SCH (11:16)
[2019-10-25] MEDS: ENOXAPARIN 30 MG/0.3 ML SYRINGE. SQ SCH (11:16)
--- NOTE | 2019-10-25 11:22 | CONS ---
DATE OF CONSULTATION: 10/25/2019 LOCATION: The patient's room is 565. REQUESTING PHYSICIAN: Jj Cantrell MD REASON FOR CONSULTATION: Pyelonephritis. HISTORY OF PRESENT ILLNESS: The patient is a 64-year-old female with history of infantile cerebral palsy, history of short gut syndrome, previous history of kidney stone. She states she was in her normal state of health until clinical faculty of 10/22/2019. She went to bed day night on the without complications, but awakened with left-sided abdominal pain. She was having no sweats. She drank a lot of water, she states and then began having some nausea. She had 1 little spot of blood in her urine, but this had improved, but over the last couple of days, the urine had become more bloody. She thinks she may have passed a kidney stone. She denies any sinus or shortness of air. She has no cough or chest pain. She has not been around anybody who has been ill. She did take several Imodium prior to going to see Dr. Alvarez, her primary yesterday, but was referred to the Emergency Room. No trauma or rashes. On arrival, she had a temperature of 98.6, but it did get as high as 101.8. Her white blood cell count on arrival was 19. Urinalysis was consistent with urinary tract infection. Creatinine was 2.1. She underwent a CT scan of the abdomen and pelvis showed bilateral nonobstructive renal calculi, no evidence of obstructive uropathy, trace left greater than right perinephric fat stranding, nonspecific finding, hepatomegaly with steatosis, pancreatic calcifications, unchanged left adrenal nodule. Currently, the patient is sitting up in bed. She is feeling some better and is hoping to be discharged soon if possible. PAST MEDICAL HISTORY: Positive for the infantile cerebral palsy, history of E. coli sepsis, hypotension, UTI, hydronephrosis with kidney stones and short gut syndrome. PAST SURGICAL HISTORY: Positive for colectomy and breast reductions and she had ureteral stent placement with cystoscopy. REVIEW OF SYSTEMS: Otherwise negative. ALLERGIES: LISTED BACLOFEN, CHLORZOXAZONE, CYCLOBENZAPRINE, IBUPROFEN, METAXALONE, METHOCARBAMOL, AND ORPHENADRINE. SOCIAL HISTORY: Quit smoking in 2001, lives alone, has no pets. Has not been on any antibiotics recently. FAMILY HISTORY: Positive for CVA in her mom. CURRENT MEDICATIONS: She received Rocephin x 1, Tylenol, potassium. PHYSICAL EXAMINATION: VITAL SIGNS: T-max 101.8, currently 98.4, pulse 72, respirations 112/65, satting 96% on room air. CONSTITUTIONAL: She is cooperative, no acute distress. She is sitting upright in bed. HEENT: she has normal conjunctivae. Oral cavity, pharynx is clear. NECK: Supple. Good range of motion, no JVD. LUNGS: Clear to auscultation. HEART: S1, S2. ABDOMEN: Soft, positive bowel sounds, no guarding, no rebound, no CVA tenderness. EXTREMITIES: Without clubbing or cyanosis. No gross edema. SKIN: Warm to touch without signs of rash. Peripheral IV sites clean. LABORATORY DATA: White count improved to 13.1, hemoglobin 10.9, platelets 184, neutrophils 74, lymphs are 12. Creatinine improved to 1.8, AST 27, ALT 32, alkaline phosphatase 112, total bilirubin is 3.1, down from 4.1. Urinalysis concerning for urinary tract infection. CT scan reviewed in history of present illness. IMPRESSION: 1. Fever. 2. Leukocytosis. 3. Pyelonephritis, status post a dose of Rocephin. 4. Urinary tract infection, present on admission. 5. Acute kidney injury. 6. Elevated bilirubin. RECOMMENDATIONS: For now, we will continue Rocephin. Follow up labs and cultures. Bilirubin per primary. This was discussed with nursing. Thank you for allowing me to participate in the patient's care. If you have any questions, please do not hesitate to contact me. DAJA CALVIN MD DR: DAYSI/kingsley JOB#: [id number] / [id number] PAULETTE
--- NOTE | 2019-10-25 13:23 | NUR ---
SW following. Discussed with RN, pt from home, independent, room air. HCFS following for self pay status. Pt currently on IV abx. SW will continue to follow for any discharge planning needs.
[2019-10-25 15:00] VITALS: BP 117/63
[2019-10-25 19:31] VITALS: BP 125/67
[2019-10-25] MEDS: LATANOPROST 0.005% OPHTH SOLUTION 2.5ML BOTTLE. OU SCH (20:15)
[2019-10-25] MEDS: LACTOBACILLUS RHAMNOSUS GG 1 CAPSULE. PO SCH (20:15)
[2019-10-25] MEDS: FAMOTIDINE 20 MG TABLET. PO SCH (20:15)
[2019-10-25 23:29] VITALS: BP 127/64
[2019-10-26] MEDS: ACETAMINOPHEN 325 MG TABLET. PO PRN (01:18)
[2019-10-26 02:42] VITALS: BP 104/46
[2019-10-26 04:52] LABS: BASO % 1 % (0-3); EOS # 0.2 x10^3/uL (0.0-0.7); EOS % 2 % (0-3); HEMATOCRIT 26.9 % (36.0-47.0); HEMOGLOBIN 8.9 g/dL (12.0-15.5); LYMPH # 1.2 x10^3/uL (1.0-4.8); LYMPH % 14 % (24-48); MEAN CORPUSCULAR HEMOGLOBIN 30 pg (25-35); MEAN CORPUSCULAR HGB CONC 33 g/dL (31-37); MEAN CORPUSCULAR VOLUME 89 fL (79-100); MONO # 1.3 x10^3/uL (0.0-1.1); MONO % 15 % (0-9); NEUT # 5.7 x10^3/uL (1.8-7.7); NEUT % 68 % (31-73); PLATELET COUNT 172 x10^3/uL (140-400); RED BLOOD COUNT 3.02 x10^6/uL (3.50-5.40); RED CELL DISTRIBUTION WIDTH 13.8 % (11.5-14.5); WHITE BLOOD COUNT 8.4 x10^3/uL (4.0-11.0)
[2019-10-26 05:05] LABS: ALBUMIN 2.2 g/dL (3.4-5.0); CALCIUM 8.1 mg/dL (8.5-10.1); CREATININE 1.4 mg/dL (0.6-1.0); DIRECT BILIRUBIN 0.4 mg/dL (0.0-0.2); POTASSIUM 3.1 mmol/L (3.5-5.1); TOTAL BILIRUBIN 0.9 mg/dL (0.2-1.0); TOTAL PROTEIN 5.8 g/dL (6.4-8.2)
[2019-10-26 07:15] VITALS: BP 127/81
[2019-10-26] MEDS: LACTOBACILLUS RHAMNOSUS GG 1 CAPSULE. PO SCH ×2 (08:42→20:52)
[2019-10-26] MEDS: COLESTIPOL HCL 1 GM TABLET PO SCH ×2 (08:42→20:51)
[2019-10-26] MEDS: ATENOLOL 50 MG TABLET. PO SCH (08:43)
[2019-10-26] MEDS: POTASSIUM CHLORIDE 20 MEQ TABLET.ER. PO SCH ×2 (08:44→17:14)
[2019-10-26] MEDS: ENOXAPARIN 30 MG/0.3 ML SYRINGE. SQ SCH (08:45)
[2019-10-26] MEDS: cefTRIAXone IV Push 2 GM VIAL. IVP SCH (08:45)
[2019-10-26] MEDS: ASPIRIN CHEWABLE 81 MG TABLET. PO SCH (08:45)
[2019-10-26] MEDS: POTASSIUM CHLORIDE 30 MEQ in IV NORMAL SALINE 1000ML BAG 1,000 ML IV SCH ×2 (08:45→18:16)
--- NOTE | 2019-10-26 09:39 | PDOC ---
Infectious Disease Note Subjective Subjective Better No Pain. Appetite ok No SOA/rash/N/V/D/C/S ROS ROS o/w neg Vital Sign Vital Signs Vital Signs Date Time Temp Pulse Resp B/P (MAP) Pulse Ox O2 Delivery O2 Flow Rate FiO2 10/26/19 08:43 72 104/46 10/26/19 07:15 98.1 18 96 Room Air 98.1 Physical Exam PHYSICAL EXAM CONSTITUTIONAL: She is cooperative, no acute distress. She is sitting upright in bed. HEENT: she has normal conjunctivae. Oral cavity, pharynx is clear. NECK: Supple. Good range of motion, no JVD. LUNGS: Clear to auscultation. HEART: S1, S2. ABDOMEN: Soft, positive bowel sounds, no guarding, no rebound, no CVA tenderness. EXTREMITIES: Without clubbing or cyanosis. No gross edema. SKIN: Warm to touch without signs of rash. Peripheral IV sites clean. Labs Lab Laboratory Tests Test 10/26/19 04:13 White Blood Count 8.4 x10^3/uL (4.0-11.0) Red Blood Count 3.02 x10^6/uL (3.50-5.40) Hemoglobin 8.9 g/dL (12.0-15.5) Hematocrit 26.9 % (36.0-47.0) Mean Corpuscular Volume 89 fL (79-100) Mean Corpuscular Hemoglobin 30 pg (25-35) Mean Corpuscular Hemoglobin Concent 33 g/dL (31-37) Red Cell Distribution Width 13.8 % (11.5-14.5) Platelet Count 172 x10^3/uL (140-400) Neutrophils (%) (Auto) 68 % (31-73) Lymphocytes (%) (Auto) 14 % (24-48) Monocytes (%) (Auto) 15 % (0-9) Eosinophils (%) (Auto) 2 % (0-3) Basophils (%) (Auto) 1 % (0-3) Neutrophils # (Auto) 5.7 x10^3/uL (1.8-7.7) Lymphocytes # (Auto) 1.2 x10^3/uL (1.0-4.8) Monocytes # (Auto) 1.3 x10^3/uL (0.0-1.1) Eosinophils # (Auto) 0.2 x10^3/uL (0.0-0.7) Basophils # (Auto) 0.0 x10^3/uL (0.0-0.2) Sodium Level 143 mmol/L (136-145) Potassium Level 3.1 mmol/L (3.5-5.1) Chloride Level 109 mmol/L (98-107) Carbon Dioxide Level 26 mmol/L (21-32) Anion Gap 8 (6-14) Blood Urea Nitrogen 13 mg/dL (7-20) Creatinine 1.4 mg/dL (0.6-1.0) Estimated GFR (Cockcroft-Gault) 46.0 Glucose Level 100 mg/dL (70-99) Calcium Level 8.1 mg/dL (8.5-10.1) Magnesium Level 2.0 mg/dL (1.8-2.4) Total Bilirubin 0.9 mg/dL (0.2-1.0) Direct Bilirubin 0.4 mg/dL (0.0-0.2) Aspartate Amino Transf (AST/SGOT) 29 U/L (15-37) Alanine Aminotransferase (ALT/SGPT) 30 U/L (14-59) Alkaline Phosphatase 86 U/L (46-116) Total Protein 5.8 g/dL (6.4-8.2) Albumin 2.2 g/dL (3.4-5.0) Micro IMPRESSION: 1. Bilateral nonobstructive renal calculi. No evidence of obstructive uropathy. 2. Trace left greater than right perinephric fat stranding, a nonspecific finding. This was not clearly seen on 2017 CT. Correlate with patient's urinalysis. 3. Hepatomegaly with steatosis. 4. Pancreatic calcifications may relate to chronic pancreatitis. 5. Unchanged left adrenal nodule. Objective Assessment Fever Leukocytosis - better Pyelonephritis - s/p Rocephin UTI- POA FRANDY - better Elevated Bilirubin - better Plan Plan of Care Continue Rocephin F/u labs and cults D/w nursing DAJA CALVIN MD October 26, 2019 09:38
--- NOTE | 2019-10-26 09:42 | PDOC ---
SUBJECTIVE ROS No complaints by Pt, stable OBJECTIVE Vital Signs Vital Signs Date Time Temp Pulse Resp B/P (MAP) Pulse Ox O2 Delivery O2 Flow Rate FiO2 10/26/19 08:43 72 104/46 10/26/19 07:15 98.1 18 96 Room Air 98.1 I & 0 Intake and Output 10/26/19 07:00 Intake Total 450 ml Output Total 1100 ml Balance -650 ml Intake Oral 450 ml Output Urine Total 1100 ml # Voids 3 # Bowel Movements 3 PHYSICAL EXAM Physical Exam GEN : NAD HEENT: Oral cavity moist NECK: Supple. LUNGS: Clear to auscultation. HEART: S1, S2. ABDOMEN: Soft, not tender EXTREMITIES: Without clubbing or cyanosis. No gross edema. SKIN: No rash. No CVA or SP tenderness, No hernandez DIAGNOSIS/ASSESSMENT Assessment & Plan FRANDY - Etiology Vasomotor/Pyelonephritis Improving renal function Creat Normal until 2018 in [facility] records, Baseline renal function unknown to me IVF, supportive care, Strict I/O, avoid nephrotoxins HypoKalemia- replace HyPoMg - normal Nephrolithiasis -Last symptomatic episode in [address] Bilateral nonobstructive renal calculi. No evidence of obstructive uropathy. Pyelonephritis- On Abx Trace left greater than right perinephric fat stranding, Urinary tract infection HTN Chronic short Bowel Syndrome 2/2 Intestinal surgeries COMMENT/RELEVANT DATA Meds Current Medications Medications (Trade) Dose Ordered Sig/Lester Start Time Stop Time Status Last Admin Dose Admin Acetaminophen (Tylenol) 650 mg Q8HRS PRN 10/24/19 20:15 10/26/19 01:18 650 MG Acetaminophen/ Hydrocodone Bitart (Lortab 5/325) 1 tab PRN Q6HRS PRN 10/25/19 10:15 Aspirin (Aspirin Chewable) 81 mg DAILYWBKFT 10/25/19 12:00 10/26/19 08:45 81 MG Atenolol (Tenormin) 50 mg DAILY 10/25/19 11:00 10/26/19 08:43 50 MG Ceftriaxone Sodium (Rocephin) 2 gm Q24H 10/25/19 10:00 10/26/19 08:45 2 GM Colestipol HCl (Colestid) 1 gm BID@1000,2200 10/25/19 11:00 10/26/19 08:42 1 GM Enoxaparin Sodium (Lovenox 30mg Syringe) 30 mg Q24H 10/25/19 10:15 10/26/19 08:45 30 MG Famotidine (Pepcid) 20 mg HS 10/25/19 21:00 10/25/19 20:15 20 MG Lactobacillus Rhamnosus (Culturelle) 1 cap BID 10/25/19 21:00 10/26/19 08:42 1 CAP Latanoprost (Xalatan) 1 drop QHS 10/25/19 21:00 10/25/19 20:15 1 DROP Magnesium Sulfate 50 ml @ 25 mls/hr 1X ONCE 10/24/19 15:45 10/24/19 17:44 DC 10/24/19 18:27 25 MLS/HR Ondansetron HCl (Zofran) 4 mg PRN Q8HRS PRN 10/24/19 17:15 10/25/19 17:14 DC 10/25/19 12:35 4 MG Potassium Chloride 30 meq/ Sodium Chloride 1,015 ml @ 125 mls/hr Q8H8M 10/25/19 06:50 10/26/19 08:45 125 MLS/HR Potassium Chloride/Water 100 ml @ 50 mls/hr 1X ONCE 10/25/19 07:00 10/25/19 08:59 DC 10/25/19 08:29 50 MLS/HR Potassium Acetate 30 meq/Sodium Chloride 1,015 ml @ 125 mls/hr Q8H8M 10/25/19 06:45 10/25/19 06:50 DC Potassium Chloride (Klor-Con) 20 meq BIDWMEALS 10/25/19 12:00 10/26/19 08:44 20 MEQ Sodium Chloride 1,000 ml @ 125 mls/hr Q8H 10/24/19 17:05 10/25/19 06:42 DC 10/25/19 03:30 125 MLS/HR Lab Laboratory Tests Test 10/26/19 04:13 White Blood Count 8.4 x10^3/uL (4.0-11.0) Red Blood Count 3.02 x10^6/uL (3.50-5.40) Hemoglobin 8.9 g/dL (12.0-15.5) Hematocrit 26.9 % (36.0-47.0) Mean Corpuscular Volume 89 fL (79-100) Mean Corpuscular Hemoglobin 30 pg (25-35) Mean Corpuscular Hemoglobin Concent 33 g/dL (31-37) Red Cell Distribution Width 13.8 % (11.5-14.5) Platelet Count 172 x10^3/uL (140-400) Neutrophils (%) (Auto) 68 % (31-73) Lymphocytes (%) (Auto) 14 % (24-48) Monocytes (%) (Auto) 15 % (0-9) Eosinophils (%) (Auto) 2 % (0-3) Basophils (%) (Auto) 1 % (0-3) Neutrophils # (Auto) 5.7 x10^3/uL (1.8-7.7) Lymphocytes # (Auto) 1.2 x10^3/uL (1.0-4.8) Monocytes # (Auto) 1.3 x10^3/uL (0.0-1.1) Eosinophils # (Auto) 0.2 x10^3/uL (0.0-0.7) Basophils # (Auto) 0.0 x10^3/uL (0.0-0.2) Sodium Level 143 mmol/L (136-145) Potassium Level 3.1 mmol/L (3.5-5.1) Chloride Level 109 mmol/L (98-107) Carbon Dioxide Level 26 mmol/L (21-32) Anion Gap 8 (6-14) Blood Urea Nitrogen 13 mg/dL (7-20) Creatinine 1.4 mg/dL (0.6-1.0) Estimated GFR (Cockcroft-Gault) 46.0 Glucose Level 100 mg/dL (70-99) Calcium Level 8.1 mg/dL (8.5-10.1) Magnesium Level 2.0 mg/dL (1.8-2.4) Total Bilirubin 0.9 mg/dL (0.2-1.0) Direct Bilirubin 0.4 mg/dL (0.0-0.2) Aspartate Amino Transf (AST/SGOT) 29 U/L (15-37) Alanine Aminotransferase (ALT/SGPT) 30 U/L (14-59) Alkaline Phosphatase 86 U/L (46-116) Total Protein 5.8 g/dL (6.4-8.2) Albumin 2.2 g/dL (3.4-5.0) Results All relevant outside records, renal labs, imaging studies, telemetry/EKG's were reviewed. MERCEDES GORE MD October 26, 2019 09:42
--- NOTE | 2019-10-26 10:13 | PDOC ---
PROGRESS NOTES Subjective Subjective feeling better today Objective Objective Vital Signs Date Time Temp Pulse Resp B/P (MAP) Pulse Ox O2 Delivery O2 Flow Rate FiO2 10/26/19 08:43 72 104/46 10/26/19 07:15 98.1 18 96 Room Air 98.1 Intake and Output 10/26/19 07:00 Intake Total 450 ml Output Total 1100 ml Balance -650 ml Intake Oral 450 ml Output Urine Total 1100 ml # Voids 3 # Bowel Movements 3 Physical Exam Abdomen: Normal bowel sounds, Soft Heart: Regular rate, Normal S1, Normal S2 General: Alert HEENT: Atraumatic Lungs: Clear to auscultation MUSCULOSKELETAL: No swelling, Osteoarthritic changes both hands Neck: Supple Neuro: Normal speech Psych/Mental Status: Mental status NL Skin: No breakdown Diagnosis Problem List Problems Medical Problems: (1) Acute pyelonephritis Status: Acute (2) Acute renal insufficiency Status: Acute Assessment Assessment Problems Medical Problems: (1) Acute pyelonephritis Status: Acute (2) Acute renal insufficiency Status: Acute FINAL IMPRESSION: 1. Acute Pyelonephritis. 2. Pre renal failure secondary to vasomotor insufficiency. 3. Electrolyte imbalance including hypokalemia and hypomagnesemia. 4. Hypertension. 5. Short gut syndrome. 6. History of nonobstructive kidney stones. 7.Sepsis. 8 lorrie Bilirubin PLAN: blood c/s neg urine c/s pending wbc down to normal pot 3.1 improvng. cr 1.4 improved. TB normal today ? home tomorrow. At this time, was admit to hospital, hydrate with IV fluids. Blood cultures, urine culture, start on Rocephin IV. ID is consulted. The patient will have magnesium and potassium replaced. Monitor and see how the patient's condition improves. Plan Plan of Care Problems Medical Problems: (1) Acute pyelonephritis Status: Acute (2) Acute renal insufficiency Status: Acute Comment Review of Relevant I have reviewed the following items tammy (where applicable) has been applied. Labs Laboratory Tests Test 10/26/19 04:13 White Blood Count 8.4 x10^3/uL (4.0-11.0) Red Blood Count 3.02 x10^6/uL (3.50-5.40) Hemoglobin 8.9 g/dL (12.0-15.5) Hematocrit 26.9 % (36.0-47.0) Mean Corpuscular Volume 89 fL (79-100) Mean Corpuscular Hemoglobin 30 pg (25-35) Mean Corpuscular Hemoglobin Concent 33 g/dL (31-37) Red Cell Distribution Width 13.8 % (11.5-14.5) Platelet Count 172 x10^3/uL (140-400) Neutrophils (%) (Auto) 68 % (31-73) Lymphocytes (%) (Auto) 14 % (24-48) Monocytes (%) (Auto) 15 % (0-9) Eosinophils (%) (Auto) 2 % (0-3) Basophils (%) (Auto) 1 % (0-3) Neutrophils # (Auto) 5.7 x10^3/uL (1.8-7.7) Lymphocytes # (Auto) 1.2 x10^3/uL (1.0-4.8) Monocytes # (Auto) 1.3 x10^3/uL (0.0-1.1) Eosinophils # (Auto) 0.2 x10^3/uL (0.0-0.7) Basophils # (Auto) 0.0 x10^3/uL (0.0-0.2) Sodium Level 143 mmol/L (136-145) Potassium Level 3.1 mmol/L (3.5-5.1) Chloride Level 109 mmol/L (98-107) Carbon Dioxide Level 26 mmol/L (21-32) Anion Gap 8 (6-14) Blood Urea Nitrogen 13 mg/dL (7-20) Creatinine 1.4 mg/dL (0.6-1.0) Estimated GFR (Cockcroft-Gault) 46.0 Glucose Level 100 mg/dL (70-99) Calcium Level 8.1 mg/dL (8.5-10.1) Magnesium Level 2.0 mg/dL (1.8-2.4) Total Bilirubin 0.9 mg/dL (0.2-1.0) Direct Bilirubin 0.4 mg/dL (0.0-0.2) Aspartate Amino Transf (AST/SGOT) 29 U/L (15-37) Alanine Aminotransferase (ALT/SGPT) 30 U/L (14-59) Alkaline Phosphatase 86 U/L (46-116) Total Protein 5.8 g/dL (6.4-8.2) Albumin 2.2 g/dL (3.4-5.0) Microbiology 10/24/19 Blood Culture - Preliminary, Resulted NO GROWTH AFTER 1 DAY Medications Current Medications Acetaminophen/ Hydrocodone Bitart (Lortab 5/325) 1 tab PRN Q6HRS PRN PO MODERATE PAIN; Start 10/25/19 at 10:15 Aspirin (Aspirin Chewable) 81 mg DAILYWBKFT PO Last administered on 10/26/19 08:45; Start 10/25/19 at 12:00 Atenolol (Tenormin) 50 mg DAILY PO Last administered on 10/26/19 08:43; Start 10/25/19 at 11:00 Colestipol HCl (Colestid) 1 gm BID@1000,2200 PO Last administered on 10/26/19 08:42; Start 10/25/19 at 11:00 Enoxaparin Sodium (Lovenox 30mg Syringe) 30 mg Q24H SQ Last administered on 10/26/19 08:45; Start 10/25/19 at 10:15 Famotidine (Pepcid) 20 mg HS PO Last administered on 10/25/19 20:15; Start 10/25/19 at 21:00 Lactobacillus Rhamnosus (Culturelle) 1 cap BID PO Last administered on 10/26/19 08:42; Start 10/25/19 at 21:00 Latanoprost (Xalatan) 1 drop QHS OU Last administered on 10/25/19 20:15; Start 10/25/19 at 21:00 Potassium Chloride (Klor-Con) 20 meq BIDWMEALS PO Last administered on 10/26/19 08:44; Start 10/25/19 at 12:00 Vitals/I & O Vital Sign - Last 24 Hours 10/25/19 10/25/19 10/25/19 10/25/19 11:00 11:00 15:00 19:31 Temp 98.6 101.0 98.7 98.6 101.0 98.7 Pulse 53 53 18 66 Resp 18 18 B/P (MAP) 157/75 157/75 (102) 117/63 (81) 125/67 (86) Pulse Ox 97 96 98 O2 Delivery Room Air Room Air Room Air 5/6/10/25/19 10/26/19 10/26/19 20:15 23:29 02:42 07:15 Temp 100.6 99.2 98.1 100.6 99.2 98.1 Pulse 79 72 71 Resp 18 18 18 B/P (MAP) 127/64 (85) 104/46 (65) 127/81 (96) Pulse Ox 97 96 96 O2 Delivery Room Air Room Air Room Air Room Air 10/26/19 08:43 Pulse 72 B/P (MAP) 104/46 Intake and Output 10/25/19 10/25/19 10/26/19 15:00 23:00 07:00 Intake Total 150 ml 300 ml Output Total 1100 ml Balance 150 ml -800 ml LANDEN MAYES MD October 26, 2019 10:13
[2019-10-26 11:06] VITALS: BP 143/86
--- NOTE | 2019-10-26 11:12 | NUR ---
SW following. Discussed with RN, pt from home, room air, independent. Pt currently requiring IV rocephin, cultures pending. SW will continue to follow.
[2019-10-26] MEDS ORDERED: POTASSIUM CHLORIDE 20 MEQ TABLET.ER. PO ONE (12:15)
[2019-10-26 15:27] VITALS: BP 130/78
[2019-10-26 19:00] VITALS: BP 147/73
[2019-10-26] MEDS: LATANOPROST 0.005% OPHTH SOLUTION 2.5ML BOTTLE. OU SCH (20:52)
[2019-10-26] MEDS: FAMOTIDINE 20 MG TABLET. PO SCH (20:52)
[2019-10-26 23:00] VITALS: BP 136/68
[2019-10-27 03:00] VITALS: BP 139/70
[2019-10-27 04:39] LABS: BASO % 1 % (0-3); EOS # 0.2 x10^3/uL (0.0-0.7); EOS % 3 % (0-3); HEMATOCRIT 26.7 % (36.0-47.0); HEMOGLOBIN 8.8 g/dL (12.0-15.5); LYMPH # 1.8 x10^3/uL (1.0-4.8); LYMPH % 24 % (24-48); MEAN CORPUSCULAR HEMOGLOBIN 30 pg (25-35); MEAN CORPUSCULAR HGB CONC 33 g/dL (31-37); MEAN CORPUSCULAR VOLUME 90 fL (79-100); MONO # 1.2 x10^3/uL (0.0-1.1); MONO % 15 % (0-9); NEUT # 4.4 x10^3/uL (1.8-7.7); NEUT % 58 % (31-73); PLATELET COUNT 191 x10^3/uL (140-400); RED BLOOD COUNT 2.98 x10^6/uL (3.50-5.40); RED CELL DISTRIBUTION WIDTH 13.9 % (11.5-14.5); WHITE BLOOD COUNT 7.7 x10^3/uL (4.0-11.0)
[2019-10-27] MEDS: POTASSIUM CHLORIDE 30 MEQ in IV NORMAL SALINE 1000ML BAG 1,000 ML IV SCH (04:45)
[2019-10-27 04:46] LABS: CALCIUM 8.1 mg/dL (8.5-10.1); CREATININE 1.2 mg/dL (0.6-1.0); GFR 54.9; POTASSIUM 3.8 mmol/L (3.5-5.1)
[2019-10-27 07:20] VITALS: BP 128/75
[2019-10-27] MEDS: POTASSIUM CHLORIDE 20 MEQ TABLET.ER. PO SCH ×2 (08:42→18:45)
[2019-10-27] MEDS: LACTOBACILLUS RHAMNOSUS GG 1 CAPSULE. PO SCH ×2 (08:42→21:25)
[2019-10-27] MEDS: ATENOLOL 50 MG TABLET. PO SCH (08:43)
[2019-10-27] MEDS: ASPIRIN CHEWABLE 81 MG TABLET. PO SCH (08:43)
--- NOTE | 2019-10-27 09:09 | PDOC ---
SUBJECTIVE ROS No complaints by Pt, stable OBJECTIVE Vital Signs Vital Signs Date Time Temp Pulse Resp B/P (MAP) Pulse Ox O2 Delivery O2 Flow Rate FiO2 10/27/19 08:43 61 139/70 10/27/19 03:00 98.4 18 98 Room Air 98.4 I & 0 Intake and Output 10/27/19 07:00 Intake Total 2295 ml Balance 2295 ml Intake Oral 1280 ml IV Total 1015 ml # Voids 5 # Bowel Movements 2 PHYSICAL EXAM Physical Exam GEN : NAD HEENT: Oral cavity moist NECK: Supple. LUNGS: Clear to auscultation. HEART: S1, S2. ABDOMEN: Soft, not tender EXTREMITIES: Without clubbing or cyanosis. No gross edema. SKIN: No rash. No CVA or SP tenderness, No hernandez DIAGNOSIS/ASSESSMENT Assessment & Plan FRANDY - Etiology vasomotor /Pyelonephritis Improving renal function Creat Normal until 2018 in [facility] records, Baseline renal function unknown to me IVF, supportive care, Strict I/O, avoid nephrotoxins HypoKalemia- replace HyPoMg - normal Nephrolithiasis -Last symptomatic episode in [address] Bilateral nonobstructive renal calculi. No evidence of obstructive uropathy. Pyelonephritis- On Abx Trace left greater than right perinephric fat stranding, Urinary tract infection HTN Chronic short Bowel Syndrome 2/2 Intestinal surgeries COMMENT/RELEVANT DATA Meds Current Medications Medications (Trade) Dose Ordered Sig/Lester Start Time Stop Time Status Last Admin Dose Admin Acetaminophen (Tylenol) 650 mg Q8HRS PRN 10/24/19 20:15 10/26/19 01:18 650 MG Acetaminophen/ Hydrocodone Bitart (Lortab 5/325) 1 tab PRN Q6HRS PRN 10/25/19 10:15 Aspirin (Aspirin Chewable) 81 mg DAILYWBKFT 10/25/19 12:00 10/27/19 08:43 81 MG Atenolol (Tenormin) 50 mg DAILY 10/25/19 11:00 10/27/19 08:43 50 MG Ceftriaxone Sodium (Rocephin) 2 gm Q24H 10/25/19 10:00 10/26/19 08:45 2 GM Colestipol HCl (Colestid) 1 gm BID@1000,2200 10/25/19 11:00 10/26/19 08:42 1 GM Enoxaparin Sodium (Lovenox 30mg Syringe) 30 mg Q24H 10/25/19 10:15 10/26/19 08:45 30 MG Famotidine (Pepcid) 20 mg HS 10/25/19 21:00 10/26/19 20:52 20 MG Lactobacillus Rhamnosus (Culturelle) 1 cap BID 10/25/19 21:00 10/27/19 08:42 1 CAP Latanoprost (Xalatan) 1 drop QHS 10/25/19 21:00 10/26/19 20:52 1 DROP Magnesium Sulfate 50 ml @ 25 mls/hr 1X ONCE 10/24/19 15:45 10/24/19 17:44 DC 10/24/19 18:27 25 MLS/HR Ondansetron HCl (Zofran) 4 mg PRN Q8HRS PRN 10/24/19 17:15 10/25/19 17:14 DC 10/25/19 12:35 4 MG Potassium Chloride 30 meq/ Sodium Chloride 1,015 ml @ 75 mls/hr [id number] 10/25/19 06:50 10/27/19 04:45 75 MLS/HR Potassium Chloride/Water 100 ml @ 50 mls/hr 1X ONCE 10/25/19 07:00 10/25/19 08:59 DC 10/25/19 08:29 50 MLS/HR Potassium Acetate 30 meq/Sodium Chloride 1,015 ml @ 125 mls/hr Q8H8M 10/25/19 06:45 10/25/19 06:50 DC Potassium Chloride (Klor-Con) 40 meq 1X ONCE 10/26/19 12:15 10/26/19 12:16 DC 10/26/19 12:51 40 MEQ Sodium Chloride 1,000 ml @ 125 mls/hr Q8H 10/24/19 17:05 10/25/19 06:42 DC 10/25/19 03:30 125 MLS/HR Lab Laboratory Tests Test 10/27/19 04:15 White Blood Count 7.7 x10^3/uL (4.0-11.0) Red Blood Count 2.98 x10^6/uL (3.50-5.40) Hemoglobin 8.8 g/dL (12.0-15.5) Hematocrit 26.7 % (36.0-47.0) Mean Corpuscular Volume 90 fL (79-100) Mean Corpuscular Hemoglobin 30 pg (25-35) Mean Corpuscular Hemoglobin Concent 33 g/dL (31-37) Red Cell Distribution Width 13.9 % (11.5-14.5) Platelet Count 191 x10^3/uL (140-400) Neutrophils (%) (Auto) 58 % (31-73) Lymphocytes (%) (Auto) 24 % (24-48) Monocytes (%) (Auto) 15 % (0-9) Eosinophils (%) (Auto) 3 % (0-3) Basophils (%) (Auto) 1 % (0-3) Neutrophils # (Auto) 4.4 x10^3/uL (1.8-7.7) Lymphocytes # (Auto) 1.8 x10^3/uL (1.0-4.8) Monocytes # (Auto) 1.2 x10^3/uL (0.0-1.1) Eosinophils # (Auto) 0.2 x10^3/uL (0.0-0.7) Basophils # (Auto) 0.0 x10^3/uL (0.0-0.2) Sodium Level 144 mmol/L (136-145) Potassium Level 3.8 mmol/L (3.5-5.1) Chloride Level 111 mmol/L (98-107) Carbon Dioxide Level 24 mmol/L (21-32) Anion Gap 9 (6-14) Blood Urea Nitrogen 7 mg/dL (7-20) Creatinine 1.2 mg/dL (0.6-1.0) Estimated GFR (Cockcroft-Gault) 54.9 Glucose Level 96 mg/dL (70-99) Calcium Level 8.1 mg/dL (8.5-10.1) Results All relevant outside records, renal labs, imaging studies, telemetry/EKG's were reviewed. MERCEDES GORE MD October 27, 2019 09:09
--- NOTE | 2019-10-27 09:25 | PDOC ---
Infectious Disease Note Subjective Subjective Better No Pain. Appetite ok No SOA/rash/N/V/D/C/S + BM ROS ROS ow/ neg Vital Sign Vital Signs Vital Signs Date Time Temp Pulse Resp B/P (MAP) Pulse Ox O2 Delivery O2 Flow Rate FiO2 10/27/19 08:43 61 139/70 10/27/19 03:00 98.4 18 98 Room Air 98.4 Physical Exam PHYSICAL EXAM CONSTITUTIONAL: She is cooperative, no acute distress. She is sitting upright in bed. Looks well HEENT: she has normal conjunctivae. Oral cavity, pharynx is clear. NECK: Supple. Good range of motion, no JVD. LUNGS: Clear to auscultation. HEART: S1, S2. ABDOMEN: Soft, positive bowel sounds, no guarding, no rebound, no CVA tenderness. EXTREMITIES: Without clubbing or cyanosis. No gross edema. SKIN: Warm to touch without signs of rash. Peripheral IV sites clean. Labs Lab Laboratory Tests Test 10/27/19 04:15 White Blood Count 7.7 x10^3/uL (4.0-11.0) Red Blood Count 2.98 x10^6/uL (3.50-5.40) Hemoglobin 8.8 g/dL (12.0-15.5) Hematocrit 26.7 % (36.0-47.0) Mean Corpuscular Volume 90 fL (79-100) Mean Corpuscular Hemoglobin 30 pg (25-35) Mean Corpuscular Hemoglobin Concent 33 g/dL (31-37) Red Cell Distribution Width 13.9 % (11.5-14.5) Platelet Count 191 x10^3/uL (140-400) Neutrophils (%) (Auto) 58 % (31-73) Lymphocytes (%) (Auto) 24 % (24-48) Monocytes (%) (Auto) 15 % (0-9) Eosinophils (%) (Auto) 3 % (0-3) Basophils (%) (Auto) 1 % (0-3) Neutrophils # (Auto) 4.4 x10^3/uL (1.8-7.7) Lymphocytes # (Auto) 1.8 x10^3/uL (1.0-4.8) Monocytes # (Auto) 1.2 x10^3/uL (0.0-1.1) Eosinophils # (Auto) 0.2 x10^3/uL (0.0-0.7) Basophils # (Auto) 0.0 x10^3/uL (0.0-0.2) Sodium Level 144 mmol/L (136-145) Potassium Level 3.8 mmol/L (3.5-5.1) Chloride Level 111 mmol/L (98-107) Carbon Dioxide Level 24 mmol/L (21-32) Anion Gap 9 (6-14) Blood Urea Nitrogen 7 mg/dL (7-20) Creatinine 1.2 mg/dL (0.6-1.0) Estimated GFR (Cockcroft-Gault) 54.9 Glucose Level 96 mg/dL (70-99) Calcium Level 8.1 mg/dL (8.5-10.1) Micro IMPRESSION: 1. Bilateral nonobstructive renal calculi. No evidence of obstructive uropathy. 2. Trace left greater than right perinephric fat stranding, a nonspecific finding. This was not clearly seen on 2017 CT. Correlate with patient's urinalysis. 3. Hepatomegaly with steatosis. 4. Pancreatic calcifications may relate to chronic pancreatitis. 5. Unchanged left adrenal nodule. Objective Assessment Fever - curve improving Leukocytosis - better - Blood cults neg Pyelonephritis - s/p Rocephin UTI- POA - GNR FRANDY - better Elevated Bilirubin - better Plan Plan of Care Continue Rocephin F/u labs and cults D/w nursing DAJA CALVIN MD October 27, 2019 09:25
[2019-10-27] MEDS: COLESTIPOL HCL 1 GM TABLET PO SCH ×3 (10:00→21:28)
--- NOTE | 2019-10-27 10:03 | PDOC ---
PROGRESS NOTES Subjective Subjective low grade fever 99-100 Objective Objective Vital Signs Date Time Temp Pulse Resp B/P (MAP) Pulse Ox O2 Delivery O2 Flow Rate FiO2 10/27/19 08:43 61 139/70 10/27/19 07:20 97.6 16 98 Room Air 97.6 Intake and Output 10/27/19 07:00 Intake Total 2295 ml Balance 2295 ml Intake Oral 1280 ml IV Total 1015 ml # Voids 5 # Bowel Movements 2 Physical Exam Abdomen: Normal bowel sounds, Soft Heart: Regular rate, Normal S1, Normal S2 General: Alert HEENT: Atraumatic Lungs: Clear to auscultation MUSCULOSKELETAL: No swelling, Osteoarthritic changes both hands Neck: Supple Neuro: Normal speech Psych/Mental Status: Mental status NL Skin: No breakdown Diagnosis Problem List Problems Medical Problems: (1) Acute pyelonephritis Status: Acute (2) Acute renal insufficiency Status: Acute Assessment Assessment Problems Medical Problems: (1) Acute pyelonephritis Status: Acute (2) Acute renal insufficiency Status: Acute FINAL IMPRESSION: 1. Acute Pyelonephritis. 2. Pre renal failure secondary to vasomotor insufficiency. 3. Electrolyte imbalance including hypokalemia and hypomagnesemia. 4. Hypertension. 5. Short gut syndrome. 6. History of nonobstructive kidney stones. 7.Sepsis. 8 lorrie Bilirubin PLAN: blood c/s neg urine c/s 100,000 gram neg wbc down to normal pot 4.1 improved cr 1.2 improved. Bilirubin normal today ? home tomorrow.waiting for final ID on urine. d/c iv fluids Plan Plan of Care Problems Medical Problems: (1) Acute pyelonephritis Status: Acute (2) Acute renal insufficiency Status: Acute Comment Review of Relevant I have reviewed the following items tammy (where applicable) has been applied. Labs Laboratory Tests Test 10/27/19 04:15 White Blood Count 7.7 x10^3/uL (4.0-11.0) Red Blood Count 2.98 x10^6/uL (3.50-5.40) Hemoglobin 8.8 g/dL (12.0-15.5) Hematocrit 26.7 % (36.0-47.0) Mean Corpuscular Volume 90 fL (79-100) Mean Corpuscular Hemoglobin 30 pg (25-35) Mean Corpuscular Hemoglobin Concent 33 g/dL (31-37) Red Cell Distribution Width 13.9 % (11.5-14.5) Platelet Count 191 x10^3/uL (140-400) Neutrophils (%) (Auto) 58 % (31-73) Lymphocytes (%) (Auto) 24 % (24-48) Monocytes (%) (Auto) 15 % (0-9) Eosinophils (%) (Auto) 3 % (0-3) Basophils (%) (Auto) 1 % (0-3) Neutrophils # (Auto) 4.4 x10^3/uL (1.8-7.7) Lymphocytes # (Auto) 1.8 x10^3/uL (1.0-4.8) Monocytes # (Auto) 1.2 x10^3/uL (0.0-1.1) Eosinophils # (Auto) 0.2 x10^3/uL (0.0-0.7) Basophils # (Auto) 0.0 x10^3/uL (0.0-0.2) Sodium Level 144 mmol/L (136-145) Potassium Level 3.8 mmol/L (3.5-5.1) Chloride Level 111 mmol/L (98-107) Carbon Dioxide Level 24 mmol/L (21-32) Anion Gap 9 (6-14) Blood Urea Nitrogen 7 mg/dL (7-20) Creatinine 1.2 mg/dL (0.6-1.0) Estimated GFR (Cockcroft-Gault) 54.9 Glucose Level 96 mg/dL (70-99) Calcium Level 8.1 mg/dL (8.5-10.1) Microbiology 10/24/19 Blood Culture - Preliminary, Resulted NO GROWTH AFTER 2 DAYS 10/24/19 Urine Culture - Preliminary, Resulted 10/24/19 Urine Culture Result 1 (JULIANA) - Preliminary, Resulted Medications Current Medications Potassium Chloride (Klor-Con) 40 meq 1X ONCE PO Last administered on 10/26/19at 12:51; Start 10/26/19 at 12:15; Stop 10/26/19 at 12:16; Status DC Vitals/I & O Vital Sign - Last 24 Hours 10/26/19 10/26/19 10/26/19 10/26/19 11:06 15:27 19:00 20:00 Temp 99.1 98.5 100.0 99.1 98.5 100.0 Pulse 72 64 62 Resp 20 18 18 B/P (MAP) 143/86 (105) 130/78 (95) 147/73 (97) Pulse Ox 96 97 99 O2 Delivery Room Air Room Air Room Air Room Air 10/26/19 10/27/19 10/27/19 10/27/19 23:00 03:00 07:20 08:43 Temp 99.8 98.4 97.6 99.8 98.4 97.6 Pulse 68 61 78 61 Resp 18 18 16 B/P (MAP) 136/68 (90) 139/70 (93) 128/75 (92) 139/70 Pulse Ox 98 98 98 O2 Delivery Room Air Room Air Room Air Intake and Output 10/26/19 10/26/19 10/27/19 15:00 23:00 07:00 Intake Total 480 ml 50 ml 1765 ml Balance 480 ml 50 ml 1765 ml LANDEN MAYES MD October 27, 2019 10:03
--- NOTE | 2019-10-27 10:47 | NUR ---
SW following. Discussed with RN, pt from home, room air, no PT/OT needs. IV rocephin, pt wanting to go home. SW will continue to follow for any discharge planning needs.
[2019-10-27 11:15] VITALS: BP 134/60
[2019-10-27] MEDS: cefTRIAXone IV Push 2 GM VIAL. IVP SCH (11:18)
[2019-10-27] MEDS: ENOXAPARIN 30 MG/0.3 ML SYRINGE. SQ SCH (11:19)
[2019-10-27 15:51] VITALS: BP 126/72
[2019-10-27 19:56] VITALS: BP 153/81
[2019-10-27] MEDS: ACETAMINOPHEN 325 MG TABLET. PO PRN (21:25)
[2019-10-27] MEDS: FAMOTIDINE 20 MG TABLET. PO SCH (21:25)
[2019-10-27] MEDS: LATANOPROST 0.005% OPHTH SOLUTION 2.5ML BOTTLE. OU SCH (21:26)
[2019-10-27 23:33] VITALS: BP 143/92
[2019-10-28 03:41] VITALS: BP 143/71
[2019-10-28 07:30] VITALS: BP 154/74
[2019-10-28] MEDS: LACTOBACILLUS RHAMNOSUS GG 1 CAPSULE. PO SCH (09:04)
[2019-10-28] MEDS: POTASSIUM CHLORIDE 20 MEQ TABLET.ER. PO SCH (09:04)
[2019-10-28] MEDS: ATENOLOL 50 MG TABLET. PO SCH (09:05)
[2019-10-28] MEDS: ASPIRIN CHEWABLE 81 MG TABLET. PO SCH (09:05)
[2019-10-28] MEDS: COLESTIPOL HCL 1 GM TABLET PO SCH (10:00)
--- NOTE | 2019-10-28 10:20 | PDOC ---
IM PROGRESS NOTES- Subjective Subjective No abd pain,nausea,diarrhea.Had low grade fever last night. Objective Vitals/I&O Vital Signs Date Time Temp Pulse Resp B/P (MAP) Pulse Ox O2 Delivery O2 Flow Rate FiO2 10/28/19 09:05 60 154/74 10/28/19 07:30 97.6 18 98 Room Air 97.6 I & O 10/27/19 10/27/19 10/28/19 15:00 23:00 07:00 Intake Total 650 ml 280 ml 480 ml Balance 650 ml 280 ml 480 ml Physical Exam Physical Exam General appearance - alert,well appearing, and in no distress and oriented to person, place, and time Mental Status - alert, oriented to person, place, and time, affect appropriate to mood Head - normal Chest - clear to auscultation, no wheezes, rales or rhonchi, symmetric air entry Heart - S1 and S2 normal Abdomen - soft, nontender, nondistended, no masses or organomegaly Neurological - alert and oriented Musculoskeletal - no muscular tenderness noted Extremities - no pedal edema Skin - warm and dry Assessment Assessment Problems Medical Problems: (1) Acute pyelonephritis Status: Acute (2) Acute renal insufficiency Status: Acute FINAL IMPRESSION: 1. Acute Pyelonephritis. 2. Pre renal failure secondary to vasomotor insufficiency. 3. Electrolyte imbalance including hypokalemia and hypomagnesemia. 4. Hypertension. 5. Short gut syndrome. 6. History of nonobstructive kidney stones. 7.Sepsis. 8 lorrie Bilirubin PLAN: blood c/s neg urine c/s 100,000 gram neg wbc down to normal pot 4.1 improved cr 1.2 improved. Bilirubin normal today Proteus UTI- Has low grade fever but clinically improving.Discharge on Cefpodoxime 200 mg bid for 7 days if ok with . See in 5 days. Discharge management 35 minutes. Plan Plan For more details regarding further plans, please refer to the orders. MERY SHELTON MD October 28, 2019 10:20
[2019-10-28] MEDS ORDERED: CEFP200T PO (10:23)
[2019-10-28 11:30] VITALS: BP 128/79
[2019-10-28] MEDS: cefTRIAXone IV Push 2 GM VIAL. IVP SCH (11:37)
[2019-10-28] MEDS: ENOXAPARIN 30 MG/0.3 ML SYRINGE. SQ SCH (11:44)
[2019-10-28 15:12] VITALS: BP 136/62
--- NOTE | 2019-10-28 15:36 | PDOC ---
Infectious Disease Note Subjective Subjective Fever 100.1 last evening, but feels good, wants to go home Denies chills/aches/back pain/N/V/dysuria ROS ROS per HPI Vital Sign Vital Signs Vital Signs Date Time Temp Pulse Resp B/P (MAP) Pulse Ox O2 Delivery O2 Flow Rate FiO2 10/28/19 11:30 97.6 59 20 128/79 (95) 98 Room Air 97.6 Physical Exam PHYSICAL EXAM GENERAL: Propped up in bed, aleart, appears comfortable HEENT: Oral cavity, pharynx is clear. NECK: Supple. LUNGS: Clear to auscultation. HEART: S1, S2. ABDOMEN: Soft, positive bowel sounds, no guarding, no rebound, no CVAT. EXTREMITIES: Without clubbing or cyanosis. No gross edema. SKIN: Warm to touch without signs of rash. PIV Labs Micro Microbiology 10/24/19 Blood Culture - Preliminary, Resulted NO GROWTH AFTER 3 DAYS 10/23. URINE CULTURE RES 1 Final Proteus mirabilis URINE CULTURE RES 2 Final Comment Mixed urogenital nahun 10,000-25,000 colony forming units per mL ANTIMICROBIAL SUSCEPTIBILITY Final Comment S = Susceptible; I = Intermediate; R = Resistant P = Positive; N = Negative MICS are expressed in micrograms per mL Antibiotic RSLT#1 Ampicillin R>=32 Cefazolin R =32 Cefepime S<=0.12 Ceftriaxone S<=0.25 Cefuroxime S<=1 Ciprofloxacin S<=0.25 Ertapenem S<=0.12 Gentamicin S<=1 Levofloxacin S<=0.12 Meropenem S<=0.25 Nitrofurantoin R =R Piperacillin/Tazobactam R>=128 Tetracycline R>=16 Tobramycin S<=1 Trimethoprim/Sulfa S =40 Objective Assessment Fever - curve improving Leukocytosis - better - Blood cults neg Pyelonephritis - s/p Rocephin UTI- POA - Proteus FRANDY - better Elevated Bilirubin - better Bilateral nonobstructive renal calculi. No evidence of obstructive uropathy on CT Plan Plan of Care Rx Cefpodoxime on chart per primary Maintain hydration f/u Dr. 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
--- NOTE | 2019-10-28 16:15 | NUR ---
Pt discharged to home. Discharge instructions reviewed with patient. She verbalized understanding.
[2019-10-29] MEDS ORDERED: ENOXAPARIN 40 MG/0.4 ML SYRINGE. SQ SCH (09:00)
== END 2019-10-28 16:15 | disposition home or self-care (01) | DRG 872 ==
LOC: ER 13:26 → 6 SOUTH 17:03
PROVIDERS: ADMIT Internal Medicine; ATTEND Internal Medicine
DX: A41.9 Sepsis, unspecified organism (principal); K86.1 Other chronic pancreatitis; K91.2 Postsurgical malabsorption, not elsewhere classified; N10 Acute pyelonephritis; R17 Unspecified jaundice; N17.9 Acute kidney failure, unspecified; E27.8 Other specified disorders of adrenal gland; E78.5 Hyperlipidemia, unspecified; E83.42 Hypomagnesemia; E87.6 Hypokalemia; G80.9 Cerebral palsy, unspecified; M19.90 Unspecified osteoarthritis, unspecified site; I10 Essential (primary) hypertension; N20.0 Calculus of kidney; Z82.3 Family history of stroke; Z83.3 Family history of diabetes mellitus; Z87.442 Personal history of urinary calculi; Z87.891 Personal history of nicotine dependence; Z90.710 Acquired absence of both cervix and uterus; B96.4 Proteus (mirabilis) (morganii) as the cause of diseases classified elsewhere
CPT/HCPCS: 36415; 74176; 80048; 80053; 80076; 81001; 83605; 83690; 83735; 85007; 85025; 85610; 85730; 87040; 87086; 96361; 96365; 96366; 96375; J0696; J1650; J2405; J3475; J3480; J7030; 99285-25; G0378

== ENCOUNTER 2021-03-27 21:19 | Emergency (ER) | payer OTHER ==
[~2021-03-27] VITALS: Ht 175.3 cm; Wt 68.2 kg
[~2021-03-27 21:19] MED LIST changes: +CEFP200T PO
--- NOTE | 2021-03-27 21:36 | PHYS DOC ---
Past Medical History Past Medical History: Hypertension, Other Additional Past Medical Histor: bowel obstructions, small bowel syndrome, cerebral palsy Past Surgical History: Colectomy, Other Additional Past Surgical Histo: breast reduction Smoking Status: Former Smoker Alcohol Use: None Drug Use: None General Adult EDM: Chief Complaint: Palpitations HPI: HPI: Patient is a 65-year-old female presents with concern for palpitations that occurred tonight. Patient reports concerned that her potassium may be off. Patient reports initially found to have an elevated potassium on 02/17/21 while being evaluated at emergency department. Patient subsequently was admitted and was given treatment for her hyperkalemia. Patient reports she thinks the IV dextrose might have sent her into "hot flashes ". Patient reports since that time she has had intermittent episodes of palpitations and sensation of feeling "hot ". Patient reports she was taken off of 2 of her blood pressure medications and her supplemental potassium. Patient had subsequently revisited emergency department last week and underwent stress test on for her heart. Patient reports exam was unremarkable. Reports at that time her potassium was down to 3.2 and required additional supplemental potassium. Patient again was seen at the emergency department on Wednesday this week and reported her potassium got up to 3.4. Patient reports she wants a "second opinion". Patient was reportedly told her symptoms might be secondary to anxiety. Patient has followed with her sample taker operator with adjustment of her blood pressure medications. Patient reports she has not yet followed with her P CP. Review of Systems: Review of Systems: Constitutional: Denies fever or chills Eyes: Denies redness or eye pain HENT: Denies nasal congestion or sore throat Respiratory: Denies cough or shortness of breath Cardiovascular: Denies chest pain; reports palpitations GI: Denies abdominal pain, nausea, or vomiting : Denies dysuria or hematuria Musculoskeletal: Denies back pain or joint pain Integument: Denies rash or skin lesions Neurologic: Denies headache, focal weakness or sensory changes Complete systems were reviewed and found to be within normal limits, except as documented in this note. Heart Score: C/O Chest Pain: N/A Allergies: Allergies: Allergies Coded Allergies Type Severity Reaction Last Updated Verified baclofen Allergy Intermediate Rash 10/20/16 Yes chlorzoxazone Allergy Intermediate Rash 10/20/16 Yes cyclobenzaprine Allergy Intermediate Rash 10/20/16 Yes ibuprofen Allergy Intermediate Rash 10/20/16 Yes metaxalone Allergy Intermediate Rash 03/01/14 Yes methocarbamol Allergy Intermediate Rash 03/01/14 Yes orphenadrine Allergy Intermediate Rash 03/01/14 Yes Physical Exam: PE: Constitutional: Well developed, well nourished, anxious, non-toxic appearance HENT: Normocephalic, atraumatic Eyes: Conjunctiva normal, no discharge Neck: Normal range of motion, supple Lungs & Thorax: No respiratory distress, equal chest rise and fall Abdomen: Soft, no tenderness Skin: Warm, dry, no erythema, no rash Extremities: No tenderness, ROM intact, no edema Neurologic: Alert and oriented X 3, no focal deficits noted Psychologic: Affect anxious, judgment normal EKG: EKG: @ 2131 NSR at 81bpm, NO ST elevation, QRS 100ms, QT/QTc 356/414ms, t wave inversion III, aVF and V3-V5, compared to prior EKG per [facility] from 09/29/17 without significant change. @2202 NSR at 70bpm, NO ST elevation, QRS 100ms, QT/QTc 382/415ms, t wave inversions III, aVF, V3-V5, no acute change from prior. Radiology/Procedures: Radiology/Procedures: [] Course & Med Decision Making: Course & Med Decision Making Pertinent Lab studies reviewed. (See chart for details) Patient presents with report of palpitations and concerned that her potassium might be off. Patient has been seen multiple times at emergency department for similar. Patient reports a normal stress test last week. Patient was reportedly told her symptoms might be secondary to anxiety. Patient does appear anxious. EKGs stable and compared to prior. Labs obtained and posted to chart. Hypokalemia and hypomagnesemia addressed. IV fluid hydration given. Patient stable for discharge with outpatient follow-up with PCP. Discussed findings and plan with patient, who acknowledges understanding and agreement. Rosemary Disclaimer: Rosemary Disclaimer: This electronic medical record was generated, in whole or in part, using a voice recognition dictation system. Departure Departure Impression: Primary Impression: Palpitations Additional Impressions: Hypokalemia Hypomagnesemia Disposition: HOME / SELF CARE / HOMELESS Condition: STABLE Referrals: KARIN ARGUELLO (PCP) Patient Instructions: Hypokalemia, Hypomagnesemia, Palpitations, Mkmf-ob-Dulj, Potassium Content of Foods Additional Instructions: Please call and make an appointment to follow closely with your doctor for further evaluation and management. Take previously prescribed potassium and magnesium as directed. EVA MEIER DO Mar 27, 2021 21:36
[2021-03-27 22:10] LABS: BASO % 1 % (0-3); EOS # 0.3 x10^3/uL (0.0-0.7); EOS % 4 % (0-3); HEMATOCRIT 33.3 % (36.0-47.0); LYMPH % 28 % (24-48); MEAN CORPUSCULAR HEMOGLOBIN 31 pg (25-35); MEAN CORPUSCULAR HGB CONC 33 g/dL (31-37); MEAN CORPUSCULAR VOLUME 94 fL (79-100); MONO # 0.6 x10^3/uL (0.0-1.1); MONO % 8 % (0-9); NEUT # 4.4 x10^3/uL (1.8-7.7); NEUT % 60 % (31-73); PLATELET COUNT 258 x10^3/uL (140-400); RED BLOOD COUNT 3.56 x10^6/uL (3.50-5.40); RED CELL DISTRIBUTION WIDTH 13.8 % (11.5-14.5); WHITE BLOOD COUNT 7.2 x10^3/uL (4.0-11.0)
[2021-03-27 22:19] LABS: CALCIUM 9.1 mg/dL (8.5-10.1); CREATININE 1.2 mg/dL (0.6-1.0); GFR 54.7; POTASSIUM 3.2 mmol/L (3.5-5.1)
[2021-03-27 22:26] LABS: ALBUMIN 3.4 g/dL (3.4-5.0); ALBUMIN/GLOBULIN RATIO 0.9 (1.0-1.7); MAGNESIUM 1.6 mg/dL (1.8-2.4); TOTAL BILIRUBIN 1.1 mg/dL (0.2-1.0); TOTAL PROTEIN 7.1 g/dL (6.4-8.2)
[2021-03-27] MEDS ORDERED: IV NORMAL SALINE 1000ML BAG 1,000 ML IV ONE (22:30)
--- NOTE | 2021-03-27 23:04 | EKG ---
[facility] [address] [place] [address] Test Date: 2021-03-27 Test Time: 21:31:07 Pat Name: MARCO ANTONIO WEAVER Department: Room: Gender: F Jack Winder: : 1955 Requested By: EVA MEIER Order Number: [id number] Reading MD: Raúl Gary Measurements Intervals [place] Rate: 81 P: 24 WI: 158 QRS: 27 QRSD: 100 T: -15 QT: 356 QTc: 414 Interpretive Statements SINUS RHYTHM T ABNORMALITY IN ANTERIOR LEADS INFERIOR LEADS ABNORMAL ECG Electronically Signed On 03-30-2021 16:58:37 CDT by Raúl Gary
--- NOTE | 2021-03-27 23:05 | EKG ---
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
[2021-03-27] MEDS ORDERED: POTASSIUM BICARB 20 MEQ EFFERVESCENT TABLET. PO ONE (23:30)
[2021-03-27] MEDS ORDERED: MAGNESIUM CHLORIDE ER 64 MG TABLET.ER PO ONE (23:30)
[2021-03-27 23:59] VITALS: BP 138/91
== END 2021-03-28 00:10 | disposition home or self-care (01) ==
LOC: ER 21:19
DX: R00.2 Palpitations (principal); E87.6 Hypokalemia; E83.42 Hypomagnesemia; I10 Essential (primary) hypertension; Z88.8 Allergy status to other drugs, medicaments and biological substances
CPT/HCPCS: 36415; 80053; 83690; 83735; 84443; 84484; 85025; 93005; 96360; 99285; J7030

== ENCOUNTER 2021-04-04 09:59 | Emergency (ER) | payer OTHER ==
[~2021-04-04] VITALS: Ht 175.3 cm; Wt 65.9 kg
--- NOTE | 2021-04-04 10:58 | PHYS DOC ---
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 She is vaccinated for Covid. She states she has a history of low potassium and low magnesium. She denies fever, syncope, dizziness, headache, cough, abdominal pain, nausea, vomiting, diarrhea, vision change, focal weakness. She states 2 weeks ago she was at [facility] and they did a stress test and echo and they said that her heart was fine. She has a history of colectomy, bowel surgery x4, bowel obstructions, short bowel syndrome, cerebral palsy, hypertension. (PIPER GLASS GOLF BALL INSPECTOR) Review of Systems: Review of Systems: Constitutional: Denies fever or chills. [] Eyes: Denies change in visual acuity. [] HENT: Denies nasal congestion or sore throat. [] Respiratory: Denies cough or +shortness of breath. [] Cardiovascular: + chest pain or denies edema. [] GI: Denies abdominal pain, nausea, vomiting, bloody stools or diarrhea. [] : Denies dysuria. [] Musculoskeletal: Denies back pain or joint pain. +fatigue[] Integument: Denies rash. [] Neurologic: Denies headache, focal weakness or sensory changes. [] Endocrine: Denies polyuria or polydipsia. [] Lymphatic: Denies swollen glands. [] Psychiatric: Denies depression or anxiety. [] (PIPER GLASS GOLF BALL INSPECTOR) Heart Score: C/O Chest Pain: Yes HEART Score for Chest Pain: HEART Score for Chest Pain Response (Comments) Value History Slighlty/Non-Suspicious 0 ECG Normal 0 Age >45 - < 65 1 Risk Factors 1 or 2 Risk Factors 1 Troponin < Normal Limit 0 Total 2 Risk Factors: Risk Factors: DM, Current or recent (<one month) smoker, HTN, HLP, family history of CAD, obesity. Risk Scores: Score 0 - 3: 2.5% MACE over next 6 weeks - Discharge Home Score 4 - 6: 20.3% MACE over next 6 weeks - Admit for Clinical Observation Score 7 - 10: 72.7% MACE over next 6 weeks - Early Invasive Strategies (PIPER GLASS GOLF BALL INSPECTOR) Allergies: Allergies: Allergies Coded Allergies Type Severity Reaction Last Updated Verified baclofen Allergy Intermediate Rash 10/20/16 Yes chlorzoxazone Allergy Intermediate Rash 10/20/16 Yes cyclobenzaprine Allergy Intermediate Rash 10/20/16 Yes ibuprofen Allergy Intermediate Rash 10/20/16 Yes metaxalone Allergy Intermediate Rash 03/01/14 Yes methocarbamol Allergy Intermediate Rash 03/01/14 Yes orphenadrine Allergy Intermediate Rash 03/01/14 Yes sulfamethoxazole Allergy Unknown UNKNOWN 04/04/21 Yes trimethoprim Allergy Unknown UNKNOWN 04/04/21 Yes (PIPER GLASS GOLF BALL INSPECTOR) Physical Exam: PE: Constitutional: Well developed, well nourished, no acute distress, non-toxic appearance. [] HENT: Normocephalic, atraumatic, bilateral external ears normal, oropharynx moist, no oral exudates, nose normal. [] Eyes: PERRLA, EOMI, conjunctiva normal, no discharge. [] Neck: Normal range of motion, no tenderness, supple, no stridor. [] Cardiovascular:Heart rate regular rhythm, no murmur [] Lungs & Thorax: Bilateral upper breath sounds clear and lower diminished to auscultation [] Abdomen: Bowel sounds normal, soft, no tenderness, no masses, no pulsatile masses. [] Skin: Warm, dry, no erythema, no rash. [] Back: No tenderness, no CVA tenderness. [] Extremities: No tenderness, no cyanosis, no clubbing, ROM intact, no edema. [] Neurologic: Alert and oriented X 3, normal motor function, normal sensory function, no focal deficits noted. [] Psychologic: Affect normal, judgement normal, mood normal. [] ([facility] CORPORATION[facility]IPER GOLF BALL INSPECTOR) Current Patient Data: Vital Signs: Vital Signs Date Time Temp Pulse Resp B/P (MAP) Pulse Ox O2 Delivery O2 Flow Rate FiO2 04/04/21 10:04 97.4 73 20 131/71 (91) 99 Room Air 97.4 (PIPER GLASS APRN) EKG: EK and read by Dr. Meier is sinus rhythm and no STEMI (PIPER GLASS APRN) Radiology/Procedures: Radiology/Procedures: [] Impression: [facility] [address] [place] [address] IMAGING REPORT Signed PATIENT: MARCO ANTONIO WEAVER ACCOUNT: [id number] : 1955 LOCATION: ER AGE: 65 SEX: F EXAM STATUS: PRE ER ORD. PHYSICIAN: PIPER GLASS APRN REASON: SOA PROCEDURE: PORTABLE CHEST 1V EXAMINATION: XR CHEST 1V CLINICAL HISTORY: Shortness of breath EXAM DATE/TIME: 04/04/2021 11:05 AM COMPARISON: 09/29/2017 FINDINGS: Lines, Tubes, and Devices: None. Cardiomediastinal Silhouette: Heart size at upper limits of normal, similar to prior study. Aortic atherosclerotic calcification. Lungs and Pleura: No evidence of focal airspace consolidation or pleural effusion. Nonspecific mild diffuse interstitial prominence, similar to slightly increased from prior study and likely chronic. Bones and Soft Tissues: Degenerative changes in the thoracic spine. IMPRESSION: No evidence of acute cardiopulmonary abnormality. Electronically signed by: Kole Abarca DO (04/04/2021 11:37 AM) [facility] DICTATED and SIGNED BY: KOLE ABARCA DO DATE: 04/04/21 [id number] 0 (PIPER GLASS APRN) Course & Med Decision Making: Course & Med Decision Making Pertinent Labs and Imaging studies reviewed. (See chart for details) See HPI. Alert and oriented x4. Ambulatory steady gait. Speaks in full clear sentences. Lungs are clear in upper lobes diminished in lower lobes. No extremity edema. Vital signs are within normal limits. Blood work unremarkable. Troponin negative. Heart score is a 2. Chest x-ray is negative. Rapid Covid is negative. A second troponin will be done and if it is normal patient will be discharged home. [] (PIPER GLASS APRN) Dragon Disclaimer: Rosemary Disclaimer: This electronic medical record was generated, in whole or in part, using a voice recognition dictation system. (PIPER GLASS APRN) Departure Departure Impression: Primary Impression: UTI (urinary tract infection) Qualified Codes: N39.0 - Urinary tract infection, site not specified Additional Impression: Fatigue Qualified Codes: R53.83 - Other fatigue Disposition: HOME / SELF CARE / HOMELESS Condition: STABLE Referrals: NO PCP (PCP) Patient Instructions: Fatigue, Urinary Tract Infection Additional Instructions: Drink plenty of fluids. Follow-up with your primary care doctor this coming up week. Begin having severe shortness of breath and cannot catch her breath return emergency room. Scripts Nitrofurantoin Monohyd/M-Cryst (MACROBID 100 MG CAPSULE) 100 Mg Capsule 1 CAP PO BID for 7 Days, #14 CAP 0 Refills Prov: PIPER GLASS APRN 04/04/21 Attending Signature Attending Signature I have reviewed the PA/CUSTOMER SECURITY CLERK's note and plan of care. I was available for consultation as needed during the patient's visit in the emergency department. I agree with the clinical impression, plan, and disposition. (EVA MEIER DO) PIPER GLASS APRN Apr 04, 2021 10:58 EVA MEIER DO Apr 05, 2021 06:50
--- NOTE | 2021-04-04 11:39 | RAD ---
EXAMINATION: XR CHEST 1V CLINICAL HISTORY: Shortness of breath EXAM DATE/TIME: 04/04/2021 11:05 AM COMPARISON: 09/29/2017 FINDINGS: Lines, Tubes, and Devices: None. Cardiomediastinal Silhouette: Heart size at upper limits of normal, similar to prior study. Aortic at herosclerotic calcification. Lungs and Pleura: No evidence of focal airspace consolidation or pleural effusion. Nonspecific mild d iffuse interstitial prominence, similar to slightly increased from prior study and likely chronic. Bones and Soft Tissues: Degenerative changes in the thoracic spine. IMPRESSION: No evidence of acute cardiopulmonary abnormality. Electronically signed by: Kole Wolf DO (04/04/2021 11:37 AM) [facility]
[2021-04-04 12:18] LABS: BASO % 1 % (0-3); EOS # 0.3 x10^3/uL (0.0-0.7); EOS % 5 % (0-3); HEMATOCRIT 33.6 % (36.0-47.0); HEMOGLOBIN 11.3 g/dL (12.0-15.5); LYMPH # 1.5 x10^3/uL (1.0-4.8); LYMPH % 20 % (24-48); MEAN CORPUSCULAR HEMOGLOBIN 31 pg (25-35); MEAN CORPUSCULAR HGB CONC 34 g/dL (31-37); MEAN CORPUSCULAR VOLUME 93 fL (79-100); MONO # 0.5 x10^3/uL (0.0-1.1); MONO % 7 % (0-9); NEUT # 5.2 x10^3/uL (1.8-7.7); NEUT % 68 % (31-73); PLATELET COUNT 265 x10^3/uL (140-400); RED BLOOD COUNT 3.61 x10^6/uL (3.50-5.40); RED CELL DISTRIBUTION WIDTH 13.5 % (11.5-14.5); WHITE BLOOD COUNT 7.6 x10^3/uL (4.0-11.0)
[2021-04-04 12:30] LABS: CALCIUM 9.4 mg/dL (8.5-10.1); CREATININE 1.3 mg/dL (0.6-1.0); GFR 49.9; POTASSIUM 4.2 mmol/L (3.5-5.1)
[2021-04-04 12:36] LABS: ALBUMIN 3.6 g/dL (3.4-5.0); ALBUMIN/GLOBULIN RATIO 1.1 (1.0-1.7); MAGNESIUM 2.3 mg/dL (1.8-2.4); TOTAL BILIRUBIN 1.2 mg/dL (0.2-1.0); TOTAL PROTEIN 6.9 g/dL (6.4-8.2)
[2021-04-04] MEDS ORDERED: IV NORMAL SALINE 1000ML BAG 1,000 ML IV ONE (13:00)
[2021-04-04 14:23] LABS: BILIRUBIN,URINE NEGATIVE (NEG); CLARITY,URINE CLEAR; COLOR,URINE YELLOW; NITRITE,URINE NEGATIVE (NEG); PH,URINE 6.5 (<5.0-8.0); PROTEIN,URINE NEGATIVE (NEG-TRACE); UROBILINOGEN,URINE 0.2 mg/dL (0.2 mg/dL)
[2021-04-04 14:28] LABS: AMPHETAMINE/METHAMPHETAMINE NEG (NEG); BARBITURATES NEG (NEG); BENZODIAZEPINES NEG (NEG); CANNABINOIDS NEG (NEG); COCAINE NEG (NEG); METHADONE NEG (NEG); OPIATES NEG (NEG); PHENCYCLIDINE NEG (NEG)
[2021-04-04] MEDS ORDERED: ALBUTEROL SULFATE 2.5 MG/3 ML NEBU. NEB ONE (14:45)
[2021-04-04 14:50] LABS: BACTERIA,URINE FEW /HPF (0-FEW)
[2021-04-04 14:51] LABS: RBC,URINE RARE /HPF (0-2)
[2021-04-04 15:48] VITALS: BP 146/73
[2021-04-04] MEDS ORDERED: NITR100C62 PO (15:50)
--- NOTE | 2021-04-05 13:13 | NUR ---
IP:Attempted to contact pt concerning covid results. No answer, left a voicemail to return the call.
--- NOTE | 2021-04-07 10:16 | NUR ---
IP: Pt returned the call. Informed pt of negative covid test. Pt verbalized understanding.
--- NOTE | 2021-04-08 06:12 | EKG ---
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
== END 2021-04-04 16:25 | disposition home or self-care (01) ==
LOC: ER 09:59
DX: N39.0 Urinary tract infection, site not specified (principal); R53.83 Other fatigue; R07.89 Other chest pain; I10 Essential (primary) hypertension; Z20.822 Contact with and (suspected) exposure to COVID-19; Z88.1 Allergy status to other antibiotic agents; Z88.2 Allergy status to sulfonamides; Z88.8 Allergy status to other drugs, medicaments and biological substances
CPT/HCPCS: 36415; 71045; 80053; 80307; 81001; 83735; 83880; 84484; 85025; 87086; 87426; 93005; 94640; 96360; 99285; J7030; J7613; U0003; U0005

== ENCOUNTER 2021-04-29 02:50 | Emergency (ER) | payer OTHER ==
[~2021-04-29] VITALS: Ht 172.7 cm; Wt 63.6 kg
[~2021-04-29 02:50] MED LIST changes: +NITR100C62 PO
--- NOTE | 2021-04-29 03:15 | PHYS DOC ---
Past Medical History Past Medical History: Hypertension, Other Additional Past Medical Histor: bowel obstructions,small bowel syndrome,cerebral palsy Past Surgical History: Colectomy, Other Additional Past Surgical Histo: breast reduction,BOWEL SURG X 4 Smoking Status: Former Smoker Alcohol Use: None Drug Use: None General Adult EDM: Chief Complaint: NAUSEA/VOMITING/DIARRHEA HPI: HPI: Patient is a 65-year-old female presenting via EMS for palpitations. Onset was several hours ago. States she had generalized nausea with x1 episode of nonbloody nonbilious emesis and subsequent nonbloody diarrhea. Shortly after that she felt weak and tired and noticed her fit bit wrist monitor showed an elevated heart rate in the low 100s. Reports she had ongoing nausea and had poor p.o. intake as this made her nausea worse. She states she tried to go to bed but ongoing racing heart and occasional palpitations prompted her to call EMS for transport to our facility. On EMS arrival, patient was found to be hemodynamically stable. On ER arrival, patient complains of continued nausea with occasional palpitations. She had significant intra-abdominal abnormalities with x4 prior small intestine surgery for her known short gut issue. She has had no recent change in health, sick contact, recent travel, trauma or other known inciting event. Denies any recent fever, URI symptoms, chest pain, ripping or tearing in chest, shortness of breath or urinary symptoms. She is fully vaccinated against COVID-19 Review of Systems: Review of Systems: Fourteen body systems of review of systems have been reviewed. See HPI for pertinent positives and negative responses, other watson all other systems are negative, non-pertinent or non-contributory Heart Score: C/O Chest Pain: No HEART Score for Chest Pain: HEART Score for Chest Pain Response (Comments) Value History Slighlty/Non-Suspicious 0 ECG Nonspecific Repolarizatio 1 Age >45 - < 65 1 Risk Factors 1 or 2 Risk Factors 1 Troponin < Normal Limit 0 Total 3 Risk Factors: Risk Factors: DM, Current or recent (<one month) smoker, HTN, HLP, family history of CAD, obesity. Risk Scores: Score 0 - 3: 2.5% MACE over next 6 weeks - Discharge Home Score 4 - 6: 20.3% MACE over next 6 weeks - Admit for Clinical Observation Score 7 - 10: 72.7% MACE over next 6 weeks - Early Invasive Strategies Allergies: Allergies: Allergies Coded Allergies Type Severity Reaction Last Updated Verified baclofen Allergy Intermediate Rash 10/20/16 Yes chlorzoxazone Allergy Intermediate Rash 10/20/16 Yes cyclobenzaprine Allergy Intermediate Rash 10/20/16 Yes ibuprofen Allergy Intermediate Rash 10/20/16 Yes metaxalone Allergy Intermediate Rash 03/01/14 Yes methocarbamol Allergy Intermediate Rash 03/01/14 Yes orphenadrine Allergy Intermediate Rash 03/01/14 Yes sulfamethoxazole Allergy Unknown UNKNOWN 04/04/21 Yes trimethoprim Allergy Unknown UNKNOWN 04/04/21 Yes Physical Exam: PE: Constitutional: Age-appropriate, thin, no obvious distress and nontoxic in appearance HENT: Normocephalic, atraumatic, bilateral external ears normal, oropharynx dry, no oral exudates, nose normal. Eyes: PERRLA, EOMI, conjunctiva normal, no discharge. Neck: Normal range of motion, no tenderness, supple, no stridor. Cardiovascular: Heart rate tachycardic, sinus rhythm, no murmurs rubs or gallops Lungs & Thorax: Bilateral breath sounds clear to auscultation Abdomen: Bowel sounds normal, soft, no tenderness, no masses, no pulsatile masses. Nonsurgical abdomen, no peritoneal signs Skin: Warm, dry, no erythema, no rash. Back: No tenderness, no CVA tenderness. Extremities: No tenderness, no cyanosis, no clubbing, ROM intact, no edema. Neurologic: Alert and oriented X 3, grossly normal motor & sensory function, no focal deficits noted. Psychologic: Anxious affect and mood Current Patient Data: Labs: Laboratory Tests Test 04/29/21 03:00 04/29/21 03:47 White Blood Count 8.9 x10^3/uL Red Blood Count 3.73 x10^6/uL Hemoglobin 11.6 g/dL Hematocrit 34.9 % Mean Corpuscular Volume 94 fL Mean Corpuscular Hemoglobin 31 pg Mean Corpuscular Hemoglobin Concent 33 g/dL Red Cell Distribution Width 13.4 % Platelet Count 221 x10^3/uL Neutrophils (%) (Auto) 86 % Lymphocytes (%) (Auto) 7 % Monocytes (%) (Auto) 5 % Eosinophils (%) (Auto) 1 % Basophils (%) (Auto) 0 % Neutrophils # (Auto) 7.7 x10^3/uL Lymphocytes # (Auto) 0.6 x10^3/uL Monocytes # (Auto) 0.5 x10^3/uL Eosinophils # (Auto) 0.1 x10^3/uL Basophils # (Auto) 0.0 x10^3/uL Sodium Level 141 mmol/L Potassium Level 3.8 mmol/L Chloride Level 108 mmol/L Carbon Dioxide Level 21 mmol/L Anion Gap 12 Blood Urea Nitrogen 17 mg/dL Creatinine 1.4 mg/dL Estimated GFR (Cockcroft-Gault) 45.8 BUN/Creatinine Ratio 12 Glucose Level 128 mg/dL Calcium Level 9.2 mg/dL Magnesium Level 1.5 mg/dL Total Bilirubin 1.3 mg/dL Aspartate Amino Transf (AST/SGOT) 33 U/L Alanine Aminotransferase (ALT/SGPT) 35 U/L Alkaline Phosphatase 119 U/L Troponin I High Sensitivity 9 ng/L Total Protein 7.3 g/dL Albumin 3.6 g/dL Albumin/Globulin Ratio 1.0 SARS-CoV-2 Antigen (Rapid) Negative Current Medications Medications (Trade) Dose Ordered Sig/Lester Route PRN Reason Start Time Stop Time Status Last Admin Dose Admin Sodium Chloride 1,000 ml @ 1,000 mls/hr 1X ONCE IV 04/29/21 04:30 04/29/21 05:29 04/29/21 04:08 Magnesium Sulfate 50 ml @ 25 mls/hr 1X ONCE IV 04/29/21 04:30 04/29/21 03:50 DC Ondansetron HCl (Zofran) 4 mg 1X ONCE IVP 04/29/21 04:30 04/29/21 04:31 DC 04/29/21 04:07 Magnesium Sulfate 100 ml @ 25 mls/hr 1X ONCE IV 04/29/21 04:30 04/29/21 08:29 04/29/21 04:08 Magnesium Sulfate 100 ml @ 25 mls/hr 1X ONCE IV 04/29/21 04:00 04/29/21 07:59 UNV Vital Signs: Vital Signs Date Time Temp Pulse Resp B/P (MAP) Pulse Ox O2 Delivery O2 Flow Rate FiO2 04/29/21 03:00 98.6 98 16 132/73 (92) 98 Room Air 98.6 Vital Signs Date Time Temp Pulse Resp B/P (MAP) Pulse Ox O2 Delivery O2 Flow Rate FiO2 04/29/21 03:00 98.6 98 16 132/73 (92) 98 Room Air 98.6 EKG: EKEKG ordered and interpreted by myself at the oh 5 hours as sinus tachycardia 111 bpm, unremarkable intervals, no axis deviation, T wave inversion noted in lead II, 3, aVF, V3 through V6. No STEMI Radiology/Procedures: Radiology/Procedures: XR CHEST 1V Clinical Indication: Reason: palpitations / Spl. Instructions: / History: Comparison: AP chest April 04, 2021. Findings: The cardiomediastinal silhouette is stable. Lungs are clear. There is no pneumothorax. No pleural effusion is appreciated. No acute bone abnormality. IMPRESSION: No acute cardiopulmonary process. Electronically signed by: Buster Dickinson MD (04/29/2021 4:49 AM) [facility] Course & Med Decision Making: Course & Med Decision Making ABCs unremarkable HPI physical exam and comprehensive ER work-up nonconcerning for any emergent or surgical issues Nausea vomiting diarrhea likely due to benign self-limiting etiology such as viral gastroparesis. I did disclose this might be an acute presentation more concerning pathology but based on physical exam findings in a hemodynamically stable patient with a nonacute abdomen, joint decision to defer imaging Patient was found to have low magnesium which was replaced while in ER setting. I reviewed potential need for hospitalization but patient voiced preference to go home with close outpatient follow-up with primary care physician, previously established dietitian and GI physicians. I feel this is amenable Patient symptoms improved with administered ER intervention such as IV fluid rehydration, and Zofran. New prescription for Zofran will be sent Strict return precautions discussed with good understanding by patient, all questions and concerns addressed prior to ER departure Rosemary Disclaimer: Rosemary Disclaimer: This electronic medical record was generated, in whole or in part, using a voice recognition dictation system. Departure Departure Impression: Primary Impression: Nausea, vomiting, and diarrhea Additional Impressions: Hypomagnesemia Short gut syndrome Disposition: 01 HOME / SELF CARE / HOMELESS Condition: IMPROVED Referrals: NO PCP (PCP) Additional Instructions: You were seen for nausea, vomit and diarrhea. You most likely have a viral or other self-limiting illness which should resolve in the next few days to a week. Please take prescribed antiemetic medications as needed for nausea. It is pertinent you contact your primary care physician first thing after ER departure to review ER visit and need for close outpatient dietitian and GI follow-up. As disclosed, the only concerning finding based on your examination today was your low magnesium level of 1.5, we addressed this by giving you supplemental magnesium. As such, it is imperative you follow-up with your primary care physician within upcoming week for repeat evaluation and labs to recheck your electrolyte levels. You should return to the ED if you develop abdominal pain, fever > 100.3, black/bloody stools, black/bloody vomiting, cannot keep water down, or any other new or concerning symptoms. Scripts Ondansetron (ONDANSETRON ODT) 4 Mg Tab.rapdis 1 TAB PO PRN Q6-8HRS for NAUSEA, #16 TAB Prov: AV TERRAZAS DO 04/29/21 AV TERRAZAS DO Apr 29, 2021 03:15
[2021-04-29 03:20] LABS: BASO % 0 % (0-3); EOS # 0.1 x10^3/uL (0.0-0.7); EOS % 1 % (0-3); HEMATOCRIT 34.9 % (36.0-47.0); HEMOGLOBIN 11.6 g/dL (12.0-15.5); LYMPH # 0.6 x10^3/uL (1.0-4.8); LYMPH % 7 % (24-48); MEAN CORPUSCULAR HEMOGLOBIN 31 pg (25-35); MEAN CORPUSCULAR HGB CONC 33 g/dL (31-37); MEAN CORPUSCULAR VOLUME 94 fL (79-100); MONO # 0.5 x10^3/uL (0.0-1.1); MONO % 5 % (0-9); NEUT # 7.7 x10^3/uL (1.8-7.7); NEUT % 86 % (31-73); PLATELET COUNT 221 x10^3/uL (140-400); RED BLOOD COUNT 3.73 x10^6/uL (3.50-5.40); RED CELL DISTRIBUTION WIDTH 13.4 % (11.5-14.5); WHITE BLOOD COUNT 8.9 x10^3/uL (4.0-11.0)
[2021-04-29 03:31] LABS: CALCIUM 9.2 mg/dL (8.5-10.1); CREATININE 1.4 mg/dL (0.6-1.0); GFR 45.8; POTASSIUM 3.8 mmol/L (3.5-5.1)
[2021-04-29 03:37] LABS: ALBUMIN 3.6 g/dL (3.4-5.0); MAGNESIUM 1.5 mg/dL (1.8-2.4); TOTAL BILIRUBIN 1.3 mg/dL (0.2-1.0); TOTAL PROTEIN 7.3 g/dL (6.4-8.2)
[2021-04-29] MEDS ORDERED: MAGNESIUM SULFATE 4GM 100 ML IV ONE ×2 (04:00→04:30)
[2021-04-29] MEDS ORDERED: IV NORMAL SALINE 1000ML BAG 1,000 ML IV ONE (04:30)
[2021-04-29] MEDS ORDERED: MAGNESIUM SULFATE 2GM 50 ML IV ONE (04:30)
[2021-04-29] MEDS ORDERED: ONDANSETRON PF 4 MG/2 ML VIAL. IVP ONE (04:30)
--- NOTE | 2021-04-29 04:51 | RAD ---
XR CHEST 1V Clinical Indication: Reason: palpitations / Spl. Instructions: / History: Comparison: AP chest April 04, 2021. Findings: The cardiomediastinal silhouette is stable. Lungs are clear. There is no pneumothorax. No pleural eff usion is appreciated. No acute bone abnormality. IMPRESSION: No acute cardiopulmonary process. Electronically signed by: Buster Dickinson MD (04/29/2021 4:49 AM) [facility]
[2021-04-29] MEDS ORDERED: ONDA4TAB12 PO (05:17)
--- NOTE | 2021-04-29 05:21 | EKG ---
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
[2021-04-29 05:56] VITALS: BP 121/61
--- NOTE | 2021-04-30 10:08 | NUR ---
IP: Attempted to contact pt concerning covid results. No answer, left a voicemail to return the call.
--- NOTE | 2021-04-30 14:21 | NUR ---
IP: Pt returned my call. Informed pt of negative covid test. Pt verbalized understanding.
== END 2021-04-29 06:10 | disposition home or self-care (01) ==
LOC: ER 02:50
DX: R11.2 Nausea with vomiting, unspecified (principal); Z20.822 Contact with and (suspected) exposure to COVID-19; K91.2 Postsurgical malabsorption, not elsewhere classified; Y65.8 Other specified misadventures during surgical and medical care; E83.42 Hypomagnesemia; R19.7 Diarrhea, unspecified; I10 Essential (primary) hypertension; Z87.891 Personal history of nicotine dependence; Z90.49 Acquired absence of other specified parts of digestive tract
CPT/HCPCS: 36415; 71045; 80053; 83735; 84484; 85025; 87426; 93005; 96365; 96375; 99285; J2405; J3475; J7030; U0003; U0005

== ENCOUNTER 2021-04-30 09:33 | Emergency (ER) | payer OTHER ==
[~2021-04-30] VITALS: Ht 175.3 cm; Wt 65.9 kg
[~2021-04-30 09:33] MED LIST changes: +ONDA4TAB12 PO
[2021-04-30 10:11] LABS: BASO % 0 % (0-3); EOS # 0.5 x10^3/uL (0.0-0.7); EOS % 7 % (0-3); HEMATOCRIT 32.4 % (36.0-47.0); HEMOGLOBIN 10.9 g/dL (12.0-15.5); LYMPH # 0.9 x10^3/uL (1.0-4.8); LYMPH % 12 % (24-48); MEAN CORPUSCULAR HEMOGLOBIN 31 pg (25-35); MEAN CORPUSCULAR HGB CONC 34 g/dL (31-37); MEAN CORPUSCULAR VOLUME 93 fL (79-100); MONO # 0.7 x10^3/uL (0.0-1.1); MONO % 9 % (0-9); NEUT # 5.2 x10^3/uL (1.8-7.7); NEUT % 72 % (31-73); PLATELET COUNT 210 x10^3/uL (140-400); RED BLOOD COUNT 3.49 x10^6/uL (3.50-5.40); RED CELL DISTRIBUTION WIDTH 13.8 % (11.5-14.5); WHITE BLOOD COUNT 7.3 x10^3/uL (4.0-11.0)
--- NOTE | 2021-04-30 10:14 | PHYS DOC ---
Past Medical History Past Medical History: Hypertension, Other Additional Past Medical Histor: bowel obstructions,small bowel syndrome,cerebral palsy Past Surgical History: Colectomy, Other Additional Past Surgical Histo: breast reduction,BOWEL SURG X 4 Smoking Status: Former Smoker Alcohol Use: None Drug Use: None General Adult EDM: Chief Complaint: WEAKNESS/GENERALIZED HPI: HPI: Patient is a 65-year-old female who presents to the emergency department for generalized weakness and fatigue that started this morning. Patient reports that she believes that her weakness and fatigue are due to her receiving magnesium in the hospital yesterday. Patient was seen in this ER yesterday and had a magnesium level of 1.5 and this was replaced in the ER, otherwise remainder of patient's blood work was unremarkable, she was tested for Covid and that was negative and her chest x-ray showed no acute findings. She reports intermittent shortness of breath and diarrhea. Patient denies any pain, chest pain, fevers, cough, nausea, vomiting, falls or injuries. Patient states to think my anxiety is making me feel like this. Review of Systems: Review of Systems: Constitutional: See HPI Respiratory: See HPI Cardiovascular: See HPI GI: See HPI Musculoskeletal: See HPI Neurologic: See HPI Psychiatric: See HPI Heart Score: C/O Chest Pain: No Risk Factors: Risk Factors: DM, Current or recent (<one month) smoker, HTN, HLP, family history of CAD, obesity. Risk Scores: Score 0 - 3: 2.5% MACE over next 6 weeks - Discharge Home Score 4 - 6: 20.3% MACE over next 6 weeks - Admit for Clinical Observation Score 7 - 10: 72.7% MACE over next 6 weeks - Early Invasive Strategies Current Medications: Current Medications Medications (Trade) Dose Ordered Sig/Lester Start Time Stop Time Status Last Admin Dose Admin Sodium Chloride 1,000 ml @ 1,000 mls/hr 1X ONCE 04/30/21 10:15 04/30/21 11:14 UNV Allergies: Allergies: Allergies Coded Allergies Type Severity Reaction Last Updated Verified baclofen Allergy Intermediate Rash 10/20/16 Yes chlorzoxazone Allergy Intermediate Rash 10/20/16 Yes cyclobenzaprine Allergy Intermediate Rash 10/20/16 Yes ibuprofen Allergy Intermediate Rash 10/20/16 Yes metaxalone Allergy Intermediate Rash 03/01/14 Yes methocarbamol Allergy Intermediate Rash 03/01/14 Yes orphenadrine Allergy Intermediate Rash 03/01/14 Yes sulfamethoxazole Allergy Intermediate 04/29/21 Yes trimethoprim Allergy Intermediate 04/29/21 Yes Physical Exam: PE: Constitutional: Well developed, well nourished, no acute distress, non-toxic appearance. [] HENT: Normocephalic, atraumatic, bilateral external ears normal, oropharynx moist, no oral exudates, nose normal. [] Eyes: PERRL, EOMI, conjunctiva normal, no discharge. [] Neck: Normal range of motion, no stridor Cardiovascular:Heart rate regular rhythm, no murmur [] Lungs & Thorax: Bilateral breath sounds clear to auscultation [] Abdomen: Bowel sounds normal, soft, no tenderness, no masses, no pulsatile masses. [] Skin: Warm, dry, no erythema, no rash. [] Back: No tenderness, normal range of motion Extremities: No tenderness, no cyanosis, no clubbing, ROM intact, no edema. [] Neurologic: Alert and oriented X 3, normal motor function, normal sensory function, no focal deficits noted, patient moves all 4 extremities equally, no pronator drift, no limb ataxia, normal speech. [] Psychologic: Affect normal, judgement normal, mood normal. [] Current Patient Data: Labs: Laboratory Tests Test 04/30/21 09:50 04/30/21 10:20 04/30/21 11:25 White Blood Count 7.3 x10^3/uL Red Blood Count 3.49 x10^6/uL Hemoglobin 10.9 g/dL Hematocrit 32.4 % Mean Corpuscular Volume 93 fL Mean Corpuscular Hemoglobin 31 pg Mean Corpuscular Hemoglobin Concent 34 g/dL Red Cell Distribution Width 13.8 % Platelet Count 210 x10^3/uL Neutrophils (%) (Auto) 72 % Lymphocytes (%) (Auto) 12 % Monocytes (%) (Auto) 9 % Eosinophils (%) (Auto) 7 % Basophils (%) (Auto) 0 % Neutrophils # (Auto) 5.2 x10^3/uL Lymphocytes # (Auto) 0.9 x10^3/uL Monocytes # (Auto) 0.7 x10^3/uL Eosinophils # (Auto) 0.5 x10^3/uL Basophils # (Auto) 0.0 x10^3/uL Sodium Level 142 mmol/L Potassium Level 4.1 mmol/L Chloride Level 108 mmol/L Carbon Dioxide Level 23 mmol/L Anion Gap 11 Blood Urea Nitrogen 12 mg/dL Creatinine 1.2 mg/dL Estimated GFR (Cockcroft-Gault) 54.7 BUN/Creatinine Ratio 10 Glucose Level 117 mg/dL Calcium Level 8.9 mg/dL Magnesium Level 2.1 mg/dL Total Bilirubin 2.0 mg/dL Aspartate Amino Transf (AST/SGOT) 28 U/L Alanine Aminotransferase (ALT/SGPT) 42 U/L Alkaline Phosphatase 112 U/L Troponin I High Sensitivity 8 ng/L Total Protein 6.8 g/dL Albumin 3.5 g/dL Albumin/Globulin Ratio 1.1 Urine Opiates Screen Neg Urine Methadone Screen Neg Urine Barbiturates Neg Urine Phencyclidine Screen Neg Urine Amphetamine/Methamphetamine Neg Urine Benzodiazepines Screen Neg Urine Cocaine Screen Neg Urine Cannabinoids Screen Neg Urine Ethyl Alcohol Neg Urine Collection Type Void Urine Color Yellow Urine Clarity Clear Urine pH 5.5 Urine Specific [place] 1.010 Urine Protein Negative mg/dL Urine Glucose (UA) Negative mg/dL Urine Ketones (Stick) Negative mg/dL Urine Blood Negative Urine Nitrite Negative Urine Bilirubin Negative Urine Urobilinogen Dipstick 0.2 mg/dL Urine Leukocyte Esterase Trace Urine RBC 0 /HPF Urine WBC 1-4 /HPF Urine Squamous Epithelial Cells Few /LPF Urine Bacteria Few /HPF Urine Hyaline Casts Occasional /HPF Urine Mucus Slight /LPF Current Medications Medications (Trade) Dose Ordered Sig/Lester Route PRN Reason Start Time Stop Time Status Last Admin Dose Admin Sodium Chloride 1,000 ml @ 1,000 mls/hr 1X ONCE IV 04/30/21 10:15 04/30/21 11:14 DC 04/30/21 10:17 Vital Signs: Vital Signs Date Time Temp Pulse Resp B/P (MAP) Pulse Ox O2 Delivery O2 Flow Rate FiO2 04/30/21 09:45 98.5 87 18 137/80 (99) 100 Room Air 98.5 EKG: EKG: EKG performed by ER staff at 1021 shows sinus rhythm, rate of 73, QTC of 424, no STEMI read by Dr. Roberts at 1023. [] Radiology/Procedures: Radiology/Procedures: [] Course & Med Decision Making: Course & Med Decision Making Pertinent Labs and Imaging studies reviewed. (See chart for details) [] Patient presents to the emergency department for generalized weakness and fatigue that started this morning. Patient believes that her symptoms are due to her receiving a magnesium infusion yesterday in the ER. She was seen in this ER yesterday and had a negative work-up which included blood work, Covid bebeto ting and chest x-ray. Work-up in the ER today consisted of blood work, urinalysis. Patient treated with IV fluids. Patient's blood work was unremarkable. She was positive for urinary tract infection and has been placed on antibiotic yesterday. Patient advised to increase her fluids continue taking her antibiotic as previously prescribed. Patient was not severely anemic in the ER. Patient advised to rest increase fluids and follow-up with her primary care provider. I discussed with patient all findings and diagnostic testing as well as the need to follow-up with PCP for further evaluation and treatment or return to the ER if any new or worsening symptoms. Strict return precautions were also discussed at length. Patient voiced understanding and agreement with the plan. Patient is hemodynamically stable at the time of disposition. [place] Disclaimer: Rosemary Disclaimer: This electronic medical record was generated, in whole or in part, using a voice recognition dictation system. Departure Departure Impression: Primary Impression: Fatigue Qualified Codes: R53.83 - Other fatigue Additional Impression: UTI (urinary tract infection) Qualified Codes: N30.00 - Acute cystitis without hematuria Disposition: HOME / SELF CARE / HOMELESS Condition: GOOD Referrals: BRYCE KELLY (PCP) Patient Instructions: Fatigue Additional Instructions: You are seen in the emergency department for fatigue and generalized weakness. Your work-up in the ER was unremarkable. You were noted to have a urinary tract infection but was prescribed an antibiotic yesterday. Please make sure that you start and finish it completely. Increase your fluids and rest. Avoid bladder irritants like caffeine, sugary beverages or alcohol. You were concerne d that you may have severe anemia, your blood levels did indicate anemia but it was not severe. I would follow-up with your primary care provider regarding these findings. Return to the emergency department if you develop weakness, syncope, dizziness, falls, chest pain, shortness of breath, high fevers refractory to treatment, intractable nausea or vomiting or any new or worsening concerns. RANJITH HERNANDES RIVET SPINNER Apr 30, 2021 10:14
[2021-04-30] MEDS ORDERED: IV NORMAL SALINE 1000ML BAG 1,000 ML IV ONE (10:15)
[2021-04-30 10:21] LABS: CALCIUM 8.9 mg/dL (8.5-10.1); CREATININE 1.2 mg/dL (0.6-1.0); GFR 54.7; POTASSIUM 4.1 mmol/L (3.5-5.1)
[2021-04-30 10:26] LABS: ALBUMIN 3.5 g/dL (3.4-5.0); ALBUMIN/GLOBULIN RATIO 1.1 (1.0-1.7); MAGNESIUM 2.1 mg/dL (1.8-2.4); TOTAL PROTEIN 6.8 g/dL (6.4-8.2)
[2021-04-30 10:43] LABS: BARBITURATES NEG (NEG); BENZODIAZEPINES NEG (NEG); CANNABINOIDS NEG (NEG); COCAINE NEG (NEG); METHADONE NEG (NEG); OPIATES NEG (NEG); PHENCYCLIDINE NEG (NEG)
[2021-04-30 10:47] LABS: AMPHETAMINE/METHAMPHETAMINE NEG (NEG)
[2021-04-30 11:47] LABS: BILIRUBIN,URINE NEGATIVE (NEG); CLARITY,URINE CLEAR; COLOR,URINE YELLOW; NITRITE,URINE NEGATIVE (NEG); PH,URINE 5.5 (<5.0-8.0); PROTEIN,URINE NEGATIVE (NEG-TRACE); UROBILINOGEN,URINE 0.2 mg/dL (0.2 mg/dL)
[2021-04-30 12:06] LABS: BACTERIA,URINE FEW /HPF (0-FEW); HYALINE CASTS, URINE OCCASIONAL /HPF; RBC,URINE 0 /HPF (0-2)
[2021-04-30 12:44] VITALS: BP 127/73
--- NOTE | 2021-04-30 16:31 | EKG ---
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
--- NOTE | 2021-05-02 19:06 | VNOTE ---
CALL BACK NOTE CALL BACK Microbiology 04/30/21 Urine Culture - Final, Complete 04/30/21 Antimicrobic Susceptibility - Final, Complete Patient was contacted 05/02/2021 at 1903. Patient informed that her current antibiotic is not sufficient to treat her UTI. A new prescription for Suprax (cefixime) p.o. 200 mg twice per day for 5 days was called into [facility] pharmacy, listed on her chart. Patient states she will pick it up in the morning. NORMAN MIJARES May 02, 2021 19:06 TIGIST MARIN MD May 03, 2021 02:05
== END 2021-04-30 12:54 | disposition home or self-care (01) ==
LOC: ER 09:33
DX: N30.00 Acute cystitis without hematuria (principal); R53.83 Other fatigue; I10 Essential (primary) hypertension; Z87.891 Personal history of nicotine dependence; Z90.49 Acquired absence of other specified parts of digestive tract; Z88.1 Allergy status to other antibiotic agents; Z88.2 Allergy status to sulfonamides; Z88.8 Allergy status to other drugs, medicaments and biological substances
CPT/HCPCS: 36415; 80053; 80307; 81001; 83735; 84484; 85025; 87086; 93005; 96360; 99285; J7030; 87077; 87186

== ENCOUNTER 2021-06-03 02:42 | Emergency (ER) | payer OTHER ==
[~2021-06-03] VITALS: Ht 175.3 cm; Wt 63.6 kg
[2021-06-03] MEDS ORDERED: cefTRIAXone IV Push 1 GM VIAL. IVP ONE (06:45)
--- NOTE | 2021-06-03 06:45 | PHYS DOC ---
Past Medical History Past Medical History: Hypertension, Other Additional Past Medical Histor: bowel obstructions,short bowel syndrome,cerebral palsy Past Surgical History: Colectomy, Other Additional Past Surgical Histo: breast reduction,BOWEL SURG X 4 Smoking Status: Never Smoker Alcohol Use: None Drug Use: None General Adult EDM: Chief Complaint: FEVER HPI: HPI: Patient is a 65-year-old female presenting via EMS for fever. Reports she woke up in the middle of the night experiencing hot sweats prompting her to check her temperature and stated that it read 110 F. She was concerned which prompted her to call EMS. On arrival, patient was found to be tachycardic with a fever of 102.5 otherwise hemodynamically stable. States she has been at baseline health with the exception of recently being diagnosed with a UTI by her community nurse practitioner 24 hours ago and was started on Macrobid. Joint decision among all to transport patient to our facility. On arrival, patient still continues to complain of increased urinary frequency and dysuria, also reports increase exacerbation of diarrhea which she states is from her chronic short gut syndrome. Review of Systems: Review of Systems: Fourteen body systems of review of systems have been reviewed. See HPI for pertinent positives and negative responses, other watson all other systems are negative, non-pertinent or non-contributory Heart Score: C/O Chest Pain: No Risk Factors: Risk Factors: DM, Current or recent (<one month) smoker, HTN, HLP, family history of CAD, obesity. Risk Scores: Score 0 - 3: 2.5% MACE over next 6 weeks - Discharge Home Score 4 - 6: 20.3% MACE over next 6 weeks - Admit for Clinical Observation Score 7 - 10: 72.7% MACE over next 6 weeks - Early Invasive Strategies Allergies: Allergies: Allergies Coded Allergies Type Severity Reaction Last Updated Verified baclofen Allergy Intermediate Rash 10/20/16 Yes chlorzoxazone Allergy Intermediate Rash 10/20/16 Yes cyclobenzaprine Allergy Intermediate Rash 10/20/16 Yes ibuprofen Allergy Intermediate Rash 10/20/16 Yes metaxalone Allergy Intermediate Rash 03/01/14 Yes methocarbamol Allergy Intermediate Rash 03/01/14 Yes orphenadrine Allergy Intermediate Rash 03/01/14 Yes sulfamethoxazole Allergy Intermediate 04/29/21 Yes trimethoprim Allergy Intermediate 04/29/21 Yes Physical Exam: PE: Constitutional: Well developed, age-appropriate and thin, no acute distress, non-toxic appearance. HENT: Normocephalic, atraumatic, bilateral external ears normal, oropharynx moist, no oral exudates, nose normal. Eyes: PERRLA, EOMI, conjunctiva normal, no discharge. Neck: Normal range of motion, no tenderness, supple, no stridor. Cardiovascular: Heart rate regular, sinus rhythm, no murmurs rubs or gallops Lungs & Thorax: Bilateral breath sounds clear to auscultation Abdomen: Bowel sounds normal, soft, no tenderness, no masses, no pulsatile masses. Nonsurgical abdomen, no peritoneal signs Skin: Warm, dry, no erythema, no rash. Back: No tenderness, no CVA tenderness. Extremities: No tenderness, no cyanosis, no clubbing, ROM intact, no edema. Neurologic: Alert and oriented X 3, grossly normal motor & sensory function, no focal deficits noted. Psychologic: Anxious affect and mood Current Patient Data: Labs: Laboratory Tests Test 06/03/21 06:57 06/03/21 08:54 White Blood Count 9.3 x10^3/uL Red Blood Count 3.61 x10^6/uL Hemoglobin 11.0 g/dL Hematocrit 33.4 % Mean Corpuscular Volume 93 fL Mean Corpuscular Hemoglobin 31 pg Mean Corpuscular Hemoglobin Concent 33 g/dL Red Cell Distribution Width 13.3 % Platelet Count 203 x10^3/uL Neutrophils (%) (Auto) 87 % Lymphocytes (%) (Auto) 6 % Monocytes (%) (Auto) 5 % Eosinophils (%) (Auto) 1 % Basophils (%) (Auto) 0 % Neutrophils # (Auto) 8.1 x10^3/uL Lymphocytes # (Auto) 0.6 x10^3/uL Monocytes # (Auto) 0.5 x10^3/uL Eosinophils # (Auto) 0.1 x10^3/uL Basophils # (Auto) 0.0 x10^3/uL Lactic Acid Level 1.0 mmol/L Sodium Level 145 mmol/L Potassium Level 3.5 mmol/L Chloride Level 108 mmol/L Carbon Dioxide Level 25 mmol/L Anion Gap 12 Blood Urea Nitrogen 15 mg/dL Creatinine 1.0 mg/dL Estimated GFR (Cockcroft-Gault) 67.5 Glucose Level 94 mg/dL Calcium Level 8.7 mg/dL Current Medications Medications (Trade) Dose Ordered Sig/Lester Route PRN Reason Start Time Stop Time Status Last Admin Dose Admin Ceftriaxone Sodium (Rocephin) 1 gm 1X ONCE IVP 06/03/21 06:45 06/03/21 06:46 DC 06/03/21 07:34 Sodium Chloride 1,000 ml @ 1,000 mls/hr 1X ONCE IV 06/03/21 07:00 06/03/21 07:59 DC 06/03/21 07:25 Vital Signs: Vital Signs Date Time Temp Pulse Resp B/P (MAP) Pulse Ox O2 Delivery O2 Flow Rate FiO2 06/03/21 06:17 79 16 166/82 (110) 97 Room Air 06/03/21 03:18 99.7 99.7 EKG: EKG: [] Radiology/Procedures: Radiology/Procedures: [] Course & Med Decision Making: Course & Med Decision Making Airway patent, breathing unlabored, vitals initially obtained concerning for slight hypertension and tachycardia Patient eventually brought back to ER room for further evaluation and treatment after lengthy delay due to COVID-19 pandemic and capacity issues Seen and evaluated by myself with concerns for complicated UTI on Macrobid treatment only Joint decision made to pursue ER work-up that was ultimately unremarkable. Patient given 1 g IV Rocephin and subsequently transition to new prescription of Omnicef for treatment of complicated UTI I discussed little utility for further diagnostic work-up or need for hospitalization and patient agreed. States she felt better with IV fluid rehydration and requested to go home with close PCP follow-up advised. I feel this is appropriate and hemodynamically stable and ambulatory patient Rosemary Disclaimer: Rosemary Disclaimer: This electronic medical record was generated, in whole or in part, using a voice recognition dictation system. Departure Departure Impression: Primary Impression: Complicated UTI (urinary tract infection) Additional Impression: Short gut syndrome Referrals: BRYCE KELLY (PCP) Additional Instructions: You were seen for a urinary tract infection. Please continue to take the antibiotics as prescribed. Your medications were switched from Macrobid to Omnicef as you should be treated for a complicated UTI in nature. You should return to the ED if you develop worsening pain, fever, flank pain, or any other new or concerning symptoms. Follow up with primary care for further management if ongoing symptoms. Scripts Cefdinir (CEFDINIR) 300 Mg Capsule 1 CAP PO BID, #13 CAP Prov: AV TERRAZAS DO 06/03/21 AV TERRAZAS DO Jun 03, 2021 06:45
[2021-06-03] MEDS ORDERED: IV NORMAL SALINE 1000ML BAG 1,000 ML IV ONE (07:00)
[2021-06-03 07:08] LABS: BASO % 0 % (0-3); EOS # 0.1 x10^3/uL (0.0-0.7); EOS % 1 % (0-3); HEMATOCRIT 33.4 % (36.0-47.0); LYMPH # 0.6 x10^3/uL (1.0-4.8); LYMPH % 6 % (24-48); MEAN CORPUSCULAR HEMOGLOBIN 31 pg (25-35); MEAN CORPUSCULAR HGB CONC 33 g/dL (31-37); MEAN CORPUSCULAR VOLUME 93 fL (79-100); MONO # 0.5 x10^3/uL (0.0-1.1); MONO % 5 % (0-9); NEUT # 8.1 x10^3/uL (1.8-7.7); NEUT % 87 % (31-73); PLATELET COUNT 203 x10^3/uL (140-400); RED BLOOD COUNT 3.61 x10^6/uL (3.50-5.40); RED CELL DISTRIBUTION WIDTH 13.3 % (11.5-14.5); WHITE BLOOD COUNT 9.3 x10^3/uL (4.0-11.0)
[2021-06-03 09:34] LABS: CALCIUM 8.7 mg/dL (8.5-10.1); GFR 67.5; POTASSIUM 3.5 mmol/L (3.5-5.1)
[2021-06-03 09:48] VITALS: BP 131/73
[2021-06-03] MEDS ORDERED: CEFD300C PO (10:22)
--- NOTE | 2021-06-03 16:11 | NUR ---
IP: Informed pt of negative covid results. Pt verbalized understanding.
== END 2021-06-03 11:40 | disposition home or self-care (01) ==
LOC: ER 02:42
DX: N39.0 Urinary tract infection, site not specified (principal); Z20.822 Contact with and (suspected) exposure to COVID-19; K91.2 Postsurgical malabsorption, not elsewhere classified; I10 Essential (primary) hypertension; Z90.49 Acquired absence of other specified parts of digestive tract; Z88.1 Allergy status to other antibiotic agents; Z88.2 Allergy status to sulfonamides; Z88.8 Allergy status to other drugs, medicaments and biological substances; Y83.8 Other surgical procedures as the cause of abnormal reaction of the patient, or of later complication, without mention of misadventure at the time of the procedure; Y92.89 Other specified places as the place of occurrence of the external cause
CPT/HCPCS: 36415; 80048; 83605; 85025; 87040; 96361; 96374; 99285; J0696; J7030; U0003; U0005

== ENCOUNTER 2021-06-15 18:42 | Emergency (ER) | payer OTHER, MEDICARE ==
[~2021-06-15] VITALS: Ht 175.3 cm; Wt 66.8 kg
[~2021-06-15 18:42] MED LIST changes: +CEFD300C PO
--- NOTE | 2021-06-15 19:02 | PHYS DOC ---
Past Medical History Past Medical History: Hypertension, Other Additional Past Medical Histor: bowel obstructions,short bowel syndrome,cerebral palsy Past Surgical History: Colectomy, Other Additional Past Surgical Histo: breast reduction,BOWEL SURG X 4 Smoking Status: Never Smoker Alcohol Use: None Drug Use: None General Adult EDM: Chief Complaint: Palpitations HPI: HPI: Patient is a 65 year old female with multiple complaints. She reports that she was looking at her lab core laboratory results on her phone, became upset at the findings. She was looking at a urine culture and sensitivity result from early April of this year. She did not realize that she was looking at urine culture results from April, she thought there was something that was from her last week's visit at her primary care office. She sees a nurse practitioner there, who reportedly ordered a urine culture and sensitivity. The patient did not understand the findings, became panicked and upset and wanted to be seen in the ER. She reports that she has had recurrent urinary tract infections for the past 3 months. She does report very mild urinary urgency and mild dysuria currently, but she admits that she does not have any severe symptoms at present. She denies abdominal pain, flank pain, nausea or vomiting, fevers or chills. She denies gross hematuria. She denies incontinence. She also reports that she had a brief episode last night of palpitations, none today. She denies chest pain, dyspnea, dizziness, diaphoresis, syncope, focal weakness, numbness or tingling. She also demands to have her magnesium and potassium levels checked because she has a history of short bowel syndrome and has frequent diarrhea. No change in diarrhea symptoms. She is eating and drinking well. No nausea or vomiting reported. He does admit that she was placed on antibiotics in April, took the full course of this at that time. Review of Systems: Review of Systems: Constitutional: Denies fever or chills. [] Respiratory: Denies cough or shortness of breath. [] Cardiovascular: Denies chest pain or edema. One brief episode of palpitations yesterday, none today. No syncope GI: Denies abdominal pain, nausea, vomiting. She has chronic diarrhea, no reported changes. No melena or hematochezia. : Reported mild dysuria and urinary urgency. No pelvic pain no flank pain. No gross hematuria. Musculoskeletal: Denies back pain or joint pain. [] Integument: Denies rash. [] Neurologic: Denies headache, focal weakness or sensory changes. Denies dizziness, vertigo, syncope. Psychiatric: Anxiety [] Heart Score: C/O Chest Pain: No Risk Factors: Risk Factors: DM, Current or recent (<one month) smoker, HTN, HLP, family history of CAD, obesity. Risk Scores: Score 0 - 3: 2.5% MACE over next 6 weeks - Discharge Home Score 4 - 6: 20.3% MACE over next 6 weeks - Admit for Clinical Observation Score 7 - 10: 72.7% MACE over next 6 weeks - Early Invasive Strategies Allergies: Allergies: Allergies Coded Allergies Type Severity Reaction Last Updated Verified baclofen Allergy Intermediate Rash 10/20/16 Yes chlorzoxazone Allergy Intermediate Rash 10/20/16 Yes cyclobenzaprine Allergy Intermediate Rash 10/20/16 Yes ibuprofen Allergy Intermediate Rash 10/20/16 Yes metaxalone Allergy Intermediate Rash 03/01/14 Yes methocarbamol Allergy Intermediate Rash 03/01/14 Yes orphenadrine Allergy Intermediate Rash 03/01/14 Yes sulfamethoxazole Allergy Intermediate 04/29/21 Yes trimethoprim Allergy Intermediate 04/29/21 Yes Physical Exam: PE: Constitutional: Well developed, well nourished, no acute distress, non-toxic appearance. [] HENT: Normocephalic, atraumatic Eyes: Sclera are clear and anicteric, conjunctive are normal Neck: Normal range of motion, no tenderness, supple, no stridor. [] Cardiovascular:Heart rate regular rhythm, +2 radial and +2 posterior tibial pulses bilateral Lungs & Thorax: Bilateral breath sounds clear to auscultation [] Abdomen: Abdomen is soft, nondistended, nontender to palpation, no CVA tenderness, no flank or abdominal ecchymoses. Multiple midline incision scars, without warmth, erythema or tenderness. Normal bowel sounds noted. Skin: Warm, dry, no erythema, no rash. [] Back: No tenderness, no CVA tenderness. [] Extremities: No tenderness, no cyanosis, no clubbing, ROM intact, no edema. No calf tenderness. Neurologic: Alert and oriented X 3, normal motor function, normal sensory function, no focal deficits noted. Dilatory with a steady gait. Psychologic: He is anxious, she is cooperative. [] EKG: EKG: EKG is interpreted at 1901 Rhythm is sinus Rate is 92 bpm Cool is normal No STEMI Radiology/Procedures: Radiology/Procedures: [] Course & Med Decision Making: Course & Med Decision Making Pertinent Labs and Imaging studies reviewed. (See chart for details) I discussed the findings, differential diagnosis and plan of care with the patient. Her urinalysis is unremarkable, as are the rest of her labs. She has an unremarkable EKG. She is asymptomatic of any palpitations now. She has no other acute physical complaints. I have reassured her of the findings here to day. She got back onto her online chart on [facility], and her urine culture from earlier this month demonstrated no growth. I confirmed this there is no current indication for further invasive exams, labs or imaging at this time based on current clinical presentation. I told her to contact her PCP for follow-up. Return precautions are given. Dragon Disclaimer: Dragon Disclaimer: This electronic medical record was generated, in whole or in part, using a voice recognition dictation system. Departure Departure Impression: Primary Impression: History of palpitations Additional Impression: History of urinary tract infection Disposition: HOME / SELF CARE / HOMELESS Condition: STABLE Referrals: BRYCE KELLY (PCP) Patient Instructions: Palpitations Additional Instructions: Return to the ER for chest pain, shortness of breath, severe dizziness, abdominal pain, vomiting with dehydration, temperature of 100.4 or higher, weakness, if you have sustained a more severe palpitations or for any other concerns. Your labs and urine here today are normal. There is no indication that you have an infection. If there is any abnormalities of a urine culture, you should be notified in about 2 days. Please continue taking your regularly prescribed medications as directed by your doctor. Please stay hydrated, drink plenty of fluids. Continue to eat a regular, healthy diet. Follow-up with your primary care doctor. ADRIANA MICHELLE DO Jun 15, 2021 19:02
[2021-06-15 20:19] LABS: BASO % 1 % (0-3); EOS # 0.4 x10^3/uL (0.0-0.7); EOS % 5 % (0-3); HEMATOCRIT 33.8 % (36.0-47.0); HEMOGLOBIN 11.1 g/dL (12.0-15.5); LYMPH # 1.9 x10^3/uL (1.0-4.8); LYMPH % 25 % (24-48); MEAN CORPUSCULAR HEMOGLOBIN 31 pg (25-35); MEAN CORPUSCULAR HGB CONC 33 g/dL (31-37); MEAN CORPUSCULAR VOLUME 94 fL (79-100); MONO # 0.7 x10^3/uL (0.0-1.1); MONO % 9 % (0-9); NEUT # 4.6 x10^3/uL (1.8-7.7); NEUT % 61 % (31-73); PLATELET COUNT 244 x10^3/uL (140-400); RED BLOOD COUNT 3.61 x10^6/uL (3.50-5.40); WHITE BLOOD COUNT 7.5 x10^3/uL (4.0-11.0)
[2021-06-15 20:21] LABS: BILIRUBIN,URINE NEGATIVE (NEG); CLARITY,URINE CLEAR; COLOR,URINE YELLOW; NITRITE,URINE NEGATIVE (NEG); PROTEIN,URINE NEGATIVE (NEG-TRACE); UROBILINOGEN,URINE 0.2 mg/dL (0.2 mg/dL)
[2021-06-15 20:27] LABS: CALCIUM 8.7 mg/dL (8.5-10.1); CREATININE 1.2 mg/dL (0.6-1.0); GFR 54.7; POTASSIUM 3.9 mmol/L (3.5-5.1)
[2021-06-15 20:32] LABS: BACTERIA,URINE 0 /HPF (0-FEW); RBC,URINE 0 /HPF (0-2)
[2021-06-15 20:55] VITALS: BP 148/94
--- NOTE | 2021-06-18 19:16 | EKG ---
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
== END 2021-06-15 21:16 | disposition home or self-care (01) ==
LOC: ER 18:42
DX: N39.0 Urinary tract infection, site not specified (principal); R00.2 Palpitations; I10 Essential (primary) hypertension; Z90.49 Acquired absence of other specified parts of digestive tract; Z88.1 Allergy status to other antibiotic agents; Z88.2 Allergy status to sulfonamides; Z88.8 Allergy status to other drugs, medicaments and biological substances
CPT/HCPCS: 36415; 80048; 81001; 83735; 85025; 87086; 93005; 99284

== ENCOUNTER 2021-06-28 13:30 | Emergency (ER) | payer OTHER ==
[~2021-06-28] VITALS: Ht 175.3 cm; Wt 65.0 kg
--- NOTE | 2021-06-28 14:48 | PHYS DOC ---
Past Medical History Past Medical History: Hypertension, Other Additional Past Medical Histor: bowel obstructions,short bowel syndrome,cerebral palsy Past Surgical History: Colectomy, Other Additional Past Surgical Histo: breast reduction,BOWEL SURG X 4 Smoking Status: Former Smoker Alcohol Use: Occasionally Drug Use: None General Adult EDM: Chief Complaint: FATIGUE HPI: HPI: Patient is a 65 year old female who presents with here with generalized fatigue over the last couple days. Patient states that she has short bowel syndrome and sometimes her potassium will get too high again she will have generalized fatigue. Patient has a history of bowel surgeries x4, short-bowel syndrome, colectomy, breast reduction, hypertension, cerebral palsy, frequent UTIs of which she is on ciprofloxacin currently, kidney stone, bowel obstructions, former smoker. She does see a urologist on July 18. She usually goes to [facility] for her care. Denies any pain at this time. Is vaccinated and boosted for Covid. Denies chest pain, shortness of air, abdominal pain, nausea, vomiting, diarrhea, back pain, fever, nasal congestion, body aches, numbness or tingling, focal weakness, dizziness, vision change, headache. Review of Systems: Review of Systems: Constitutional: Denies fever or chills. [] Eyes: Denies change in visual acuity. [] HENT: Denies nasal congestion or sore throat. [] Respiratory: Denies cough or shortness of breath. [] Cardiovascular: Denies chest pain or edema. [] GI: Denies abdominal pain, nausea, vomiting, bloody stools or diarrhea. [] : Denies dysuria. [] Musculoskeletal: Denies back pain or joint pain. +Generalized fatigue. [] Integument: Denies rash. [] Neurologic: Denies headache, focal weakness or sensory changes. [] Endocrine: Denies polyuria or polydipsia. [] Lymphatic: Denies swollen glands. [] Psychiatric: Denies depression or anxiety. [] Heart Score: C/O Chest Pain: No Allergies: Allergies: Allergies Coded Allergies Type Severity Reaction Last Updated Verified baclofen Allergy Intermediate Rash 06/28/21 Yes chlorzoxazone Allergy Intermediate Rash 06/28/21 Yes cyclobenzaprine Allergy Intermediate Rash 06/28/21 Yes ibuprofen Allergy Intermediate Rash 06/28/21 Yes metaxalone Allergy Intermediate Rash 06/28/21 Yes methocarbamol Allergy Intermediate Rash 06/28/21 Yes orphenadrine Allergy Intermediate Rash 06/28/21 Yes sulfamethoxazole Allergy Intermediate 06/28/21 Yes trimethoprim Allergy Intermediate 06/28/21 Yes Physical Exam: PE: Constitutional: Well developed, well nourished, no acute distress, non-toxic appearance. [] HENT: Normocephalic, atraumatic, bilateral external ears normal, oropharynx moist, no oral exudates, nose normal. [] Eyes: PERRLA, EOMI, conjunctiva normal, no discharge. [] Neck: Normal range of motion, no tenderness, supple, no stridor. [] Cardiovascular:Heart rate regular rhythm, no murmur [] Lungs & Thorax: Bilateral breath sounds clear to auscultation [] Abdomen: Bowel sounds normal, soft, no tenderness, no masses, no pulsatile masses. [] Skin: Warm, dry, no erythema, no rash. [] Back: No tenderness, no CVA tenderness. [] Extremities: No tenderness, no cyanosis, no clubbing, ROM intact, no edema. [] Neurologic: Alert and oriented X 3, normal motor function, normal sensory function, no focal deficits noted. [] Psychologic: Affect normal, judgement normal, mood normal. [] Normal physical exam EKG: EKG: [] Radiology/Procedures: Radiology/Procedures: [] Course & Med Decision Making: Course & Med Decision Making Pertinent Labs and Imaging studies reviewed. (See chart for details) See HPI. Alert and oriented x4. Ambulatory steady gait. Speaks in full clear sentences. No extremity edema. Lungs are clear all station all lobes. Vital signs are within normal limits. No sensation loss. Neurologically intact. Equal strength in all extremities. Blood work generally unremarkable. Urinalysis shows no infection. Rapid Covid is negative. Patient to go home and follow-up with primary care. [] Dragon Disclaimer: Rosemary Disclaimer: This electronic medical record was generated, in whole or in part, using a voice recognition dictation system. Departure Departure Impression: Primary Impression: Fatigue Qualified Codes: R53.83 - Other fatigue Disposition: HOME / SELF CARE / HOMELESS Condition: STABLE Referrals: BRYCE KELLY (PCP) Patient Instructions: Fatigue Additional Instructions: Follow-up with your primary care provider. Drink plenty of fluids to stay hydrated. Keep your scheduled appointment. If you begin running a fever or having shortness of breath or vomiting return emergency room. PIPER GLASS APRN Jun 28, 2021 14:48
[2021-06-28 15:44] LABS: BASO # 0.1 x10^3/uL (0.0-0.2); BASO % 1 % (0-3); EOS # 0.4 x10^3/uL (0.0-0.7); EOS % 5 % (0-3); HEMATOCRIT 33.5 % (36.0-47.0); HEMOGLOBIN 11.1 g/dL (12.0-15.5); LYMPH # 1.3 x10^3/uL (1.0-4.8); LYMPH % 17 % (24-48); MEAN CORPUSCULAR HEMOGLOBIN 31 pg (25-35); MEAN CORPUSCULAR HGB CONC 33 g/dL (31-37); MEAN CORPUSCULAR VOLUME 92 fL (79-100); MONO # 0.5 x10^3/uL (0.0-1.1); MONO % 6 % (0-9); NEUT # 5.5 x10^3/uL (1.8-7.7); NEUT % 71 % (31-73); PLATELET COUNT 248 x10^3/uL (140-400); RED BLOOD COUNT 3.64 x10^6/uL (3.50-5.40); RED CELL DISTRIBUTION WIDTH 14.2 % (11.5-14.5); WHITE BLOOD COUNT 7.7 x10^3/uL (4.0-11.0)
[2021-06-28 16:05] LABS: CREATININE 1.2 mg/dL (0.6-1.0); GFR 54.7; POTASSIUM 3.9 mmol/L (3.5-5.1)
[2021-06-28 16:11] LABS: ALBUMIN 3.3 g/dL (3.4-5.0); ALBUMIN/GLOBULIN RATIO 0.8 (1.0-1.7); MAGNESIUM 2.2 mg/dL (1.8-2.4); TOTAL PROTEIN 7.4 g/dL (6.4-8.2)
[2021-06-28 17:05] LABS: BILIRUBIN,URINE NEGATIVE (NEG); CLARITY,URINE CLEAR; COLOR,URINE YELLOW; NITRITE,URINE NEGATIVE (NEG); PH,URINE 5.5 (<5.0-8.0); PROTEIN,URINE NEGATIVE (NEG-TRACE); UROBILINOGEN,URINE 0.2 mg/dL (0.2 mg/dL)
[2021-06-28 17:12] LABS: BACTERIA,URINE 0 /HPF (0-FEW); RBC,URINE 0 /HPF (0-2)
[2021-06-28 17:13] LABS: WBC,URINE OCC /HPF (0-4)
[2021-06-28 17:36] VITALS: BP 125/75
--- NOTE | 2021-06-30 12:04 | NUR ---
IP: Informed pt of negative covid test. pt verbalized understanding.
== END 2021-06-28 17:36 | disposition home or self-care (01) ==
LOC: ER 13:30
DX: R53.83 Other fatigue (principal); Z20.822 Contact with and (suspected) exposure to COVID-19; I10 Essential (primary) hypertension; Z87.891 Personal history of nicotine dependence; Z88.1 Allergy status to other antibiotic agents; Z88.2 Allergy status to sulfonamides; Z88.8 Allergy status to other drugs, medicaments and biological substances
CPT/HCPCS: 36415; 80053; 81001; 83735; 84484; 85025; 87426; 99283; U0003; U0005

== ENCOUNTER 2021-07-17 13:05 | Emergency (ER) | payer OTHER ==
[~2021-07-17] VITALS: Ht 175.3 cm; Wt 66.3 kg
--- NOTE | 2021-07-17 14:11 | EKG ---
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
--- NOTE | 2021-07-17 14:35 | PHYS DOC ---
Past Medical History Past Medical History: Glaucoma, Hypertension, Kidney Stone, UTI, Other Additional Past Medical Histor: PANCREAS Past Medical History pancreatic insufficiency; cannot produce lipase short bowel syndrome Past Surgical History: Hysterectomy Additional Past Surgical Histo: breast reduction,BOWEL SURG X 4 Past Surgical History bowel resection 5 times between 1996 and 2005 breast reduction 1975 tonsilectomy as a kid unknown date hysterectomy 1996 Smoking Status: Former Smoker Alcohol Use: Rarely Drug Use: None Social History patient lives alone General Adult EDM: Chief Complaint: HYPERTENSION HPI: HPI: Kathryn Kwan is a pleasant 65-year-old female presenting to [facility] ED for hypertension and numbness at the back of her head for the past 1 day and a half. Patient claims that she always has head had numbness all over her head that is intermittent which she attributes to her cerebral palsy. She complains that starting at 10 AM yesterday she started having increased numbness in the back of her head and neck area and she took her blood pressure and it was high. She cannot remember the exact measurement readings. Patient takes her own blood pressures at home arm blood pressure cuff. She does not know when the last time it is calibrated. Her self-reported blood pressure 9:30 AM this morning was 190/101 and 167/106 at noon today. She came to the ER because of possible cerebral ischemic event. Does not happen to the patient in the past. Says that her blood pressure raises when she gets more anxious and that her brother 7 days ago. Is that she feels stressed with arrangements. Patient denies chest pain, shortness of air, change in vision, changes in hearing, and numbness and tingling in the face or extremities. 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 He did not have these events when she had elevated blood pressure 1 1/2 days ago or today. Patient is not any pain today. She denies any other associated symptoms. My the time she came to ED she claimed her numbness completely went away. Patient also says that she has chronic UTIs and is worried that she might have another one. Her last UTI was treated 2 to 3 weeks ago with Macrobid for 14 days. Review of Systems: Review of Systems: Constitutional: Denies fever or chills Eyes: Denies redness or eye pain HENT: Denies nasal congestion or sore throat Respiratory: Denies cough or shortness of breath Cardiovascular: Denies chest pain. Reports occasional heart fluttering GI: Denies abdominal pain, nausea, or vomiting. Reports green loose stools *associated with pancreatic insufficiency and short bowel syndrome* : Denies dysuria or hematuria Musculoskeletal: Denies back pain or joint pain Integument: Denies rash or skin lesions Neurologic: Denies headache, focal weakness or sensory changes Complete systems were reviewed and found to be within normal limits, except as documented in this note. Heart Score: C/O Chest Pain: N/A Allergies: Allergies: Allergies Coded Allergies Type Severity Reaction Last Updated Verified baclofen Allergy Intermediate Rash 06/28/21 Yes chlorzoxazone Allergy Intermediate Rash 06/28/21 Yes cyclobenzaprine Allergy Intermediate Rash 06/28/21 Yes ibuprofen Allergy Intermediate Rash 06/28/21 Yes metaxalone Allergy Intermediate Rash 06/28/21 Yes methocarbamol Allergy Intermediate Rash 06/28/21 Yes orphenadrine Allergy Intermediate Rash 06/28/21 Yes sulfamethoxazole Allergy Intermediate 06/28/21 Yes trimethoprim Allergy Intermediate 06/28/21 Yes Physical Exam: PE: Constitutional: Well developed, well nourished, no acute distress, non-toxic appearance HENT: Normocephalic, atraumatic. Eyes: PERRL, conjunctiva normal, no discharge Neck: Normal range of motion, no tenderness, supple Lungs & Thorax: No respiratory distress, equal chest rise and fall, increased AP diameter mild, no wheezing Cardiovascular: RRR w/o murmur. Possible occasional PVCs but sinus rhythm otherwise +2/4 pulses UE and LE b/l. Capillary refill 1-2 seconds UE b/l. Abdomen: Soft, no tenderness. tympanic to percussion X 4Q, normoactive BS X4Q. Port site scars and longitudinal laparotomy scars noted. Skin: Warm, dry, no erythema, no rash Back: No tenderness, no CVA tenderness Extremities: No tenderness, ROM intact, no edema. occasional posterior L knee muscle pain. Neurologic: Alert and oriented X 3, normal motor function, normal sensory function, no focal deficits noted. Speech is slurred chronic due to cerebral palsy and from missing bridge on upper teeth on one side. facial drooping near mouth could not be distinguished apart from missing teeth. CN 2-12 intact to testing b/l. Psychologic: Affect anxious, judgment normal Current Patient Data: Labs: Laboratory Tests Test 07/17/21 13:37 Glucose (Fingerstick) 92 mg/dL (70-99) Laboratory Tests Test 07/17/21 13:37 07/17/21 15:39 07/17/21 15:44 Glucose (Fingerstick) 92 mg/dL White Blood Count 6.5 x10^3/uL Red Blood Count 3.77 x10^6/uL Hemoglobin 11.7 g/dL Hematocrit 35.1 % Mean Corpuscular Volume 93 fL Mean Corpuscular Hemoglobin 31 pg Mean Corpuscular Hemoglobin Concent 33 g/dL Red Cell Distribution Width 13.8 % Platelet Count 219 x10^3/uL Neutrophils (%) (Auto) 63 % Lymphocytes (%) (Auto) 25 % Monocytes (%) (Auto) 7 % Eosinophils (%) (Auto) 4 % Basophils (%) (Auto) 1 % Neutrophils # (Auto) 4.1 x10^3/uL Lymphocytes # (Auto) 1.6 x10^3/uL Monocytes # (Auto) 0.5 x10^3/uL Eosinophils # (Auto) 0.3 x10^3/uL Basophils # (Auto) 0.0 x10^3/uL Sodium Level 148 mmol/L Potassium Level 3.5 mmol/L Chloride Level 110 mmol/L Carbon Dioxide Level 25 mmol/L Anion Gap 13 Blood Urea Nitrogen 13 mg/dL Creatinine 1.0 mg/dL Estimated GFR (Cockcroft-Gault) 67.5 BUN/Creatinine Ratio 13 Glucose Level 86 mg/dL Calcium Level 9.2 mg/dL Magnesium Level 2.2 mg/dL Total Bilirubin 1.8 mg/dL Aspartate Amino Transf (AST/SGOT) 19 U/L Alanine Aminotransferase (ALT/SGPT) 23 U/L Alkaline Phosphatase 105 U/L Creatine Kinase 115 U/L Creatine Kinase MB (Mass) 2.4 ng/mL Creatine Kinase MB Relative Index 2.1 % Troponin I High Sensitivity 17 ng/L Total Protein 7.2 g/dL Albumin 3.6 g/dL Albumin/Globulin Ratio 1.0 Urine Collection Type Void Urine Color Yellow Urine Clarity Clear Urine pH 5.5 Urine Specific [place] 1.010 Urine Protein Negative mg/dL Urine Glucose (UA) Negative mg/dL Urine Ketones (Stick) Negative mg/dL Urine Blood Negative Urine Nitrite Negative Urine Bilirubin Negative Urine Urobilinogen Dipstick 0.2 mg/dL Urine Leukocyte Esterase Negative Urine RBC 0 /HPF Urine WBC 1-4 /HPF Urine Squamous Epithelial Cells Mod /LPF Urine Bacteria 0 /HPF Urine Hyaline Casts Occasional /HPF Urine Mucus Slight /LPF Current Medications Medications (Trade) Dose Ordered Sig/Lester Route PRN Reason Start Time Stop Time Status Last Admin Dose Admin Sodium Chloride 1,000 ml @ 1,000 mls/hr 1X ONCE IV 07/17/21 14:45 07/17/21 15:44 DC 07/17/21 15:41 Vital Signs: Vital Signs Date Time Temp Pulse Resp B/P (MAP) Pulse Ox O2 Delivery O2 Flow Rate FiO2 07/17/21 14:20 74 30 124/84 (97) 100 Room Air 07/17/21 13:26 97.9 97.9 EKG: EKG: EKG performed at 13: 51 on 07/17/2021: sinus rhythm, normal rate 63bpm. QRS 100ms; QT 524ms; QTc 540ms prolonged QT Radiology/Procedures: Radiology/Procedures: PROCEDURE: PORTABLE CHEST 1V EXAM: Chest, single view. HISTORY: Weakness. Numbness. COMPARISON: 04/29/2021 FINDINGS: A frontal view of the chest is obtained. There is no infiltrate, pleural effusion or pneumothorax. There is a stable prominent cardiac silhouette and ectatic or tortuous ascending aorta. There is hyperinflation due to inspiratory effort or emphysema. IMPRESSION: No acute pulmonary finding. Electronically signed by: Lorenza Alas MD (07/17/2021 2:50 PM) [id number] PROCEDURE: CT HEAD WO CONTRAST EXAM: Head CT without contrast. HISTORY: Headache. Hypertension. Numbness. TECHNIQUE: Computed tomographic images of the head were obtained without contrast. *One or more of the following individualized dose reduction techniques were utilized for this examination: 1. Automated exposure control. 2. Adjustment of the mA and/or kV according to patient size. 3. Use of iterative reconstruction technique. COMPARISON: 09/29/2017. FINDINGS: There is no acute or subacute extra-axial or intraparenchymal hemorrhage. There is no mass effect or midline shift. There is no hydrocephalus. There are areas of decreased attenuation within the cerebral white matter, nonspecific and likely related to chronic small vessel disease. There is cerebral volume loss. The visualized portions of the orbits, paranasal sinuses and mastoid air cells are unremarkable. No suspicious calvarial lesion is seen. There is a stable 1.2 cm benign-appearing lucent lesion within the left parietal bone superior to the mastoid air cells, possibly a hemangioma. IMPRESSION: 1. No acute intracranial finding. MRI is more sensitive for acute infarction. 2. Bilateral cerebral white matter changes, likely due to chronic small vessel disease. 3. Cerebral volume loss. Electronically signed by: Lorenza Alas MD (07/17/2021 2:49 PM) [id number] Course & Med Decision Making: Course & Med Decision Making Pertinent Labs and Imaging studies reviewed. (See chart for details) 65-year-old female patient presented to ED for hypertension and posterior head numbness that started 1-1/2 days ago. Patient has occasional head numbness all over which she attributes to past medical history of cerebral palsy. Denies headaches or pain. Past medical history also includes short-bowel syndrome, pancreatic insufficiency, hypertension, kidney stones, and chronic UTIs. She has follow-up appointments with nephrology, cardiology, family nurse practitioner in the next coming months. Stroke work-up was initiated. Patient scored 0 points factors ruling out stroke. Stat head CT was ordered and impression indicated no recent ischemic events. CXR imagine and labs CBC, CMP, troponins, and urinary analysis were ordered for cardiac and stroke work-up as well as possible UTI. Laboratory results showed mild hypernatremia and was otherwise within normal limits. Hypernatremia can be attributed to patient dehydration. The urinalysis was negative for infection. Chest x-ray showed mild cardiomegaly and tortuous ascending aorta was otherwise negative for any pathophysiology. Patient was anxious and there was elevated blood pressure every time she began speaking asking questions or talking with her hands animatedly. Hypertensions attributed to her chronic hypertension and no clear reasoning for posterior head numbness with negative imaging and negative lab results. Patient likely has anxiety disorder. She is encouraged to use calming techniques, decrease stressors post family , district adhere to DASH diet. She is encouraged to follow-up with her specialist care and primary care physicians. Patient stable for discharge with outpatient follow-up with PCP. Discussed findings and plan with patient, who acknowledges understanding and agreement. Dragon Disclaimer: Rosemary Disclaimer: This electronic medical record was generated, in whole or in part, using a voice recognition dictation system. Departure Departure Impression: Primary Impression: Hypertension Qualified Codes: I10 - Essential (primary) hypertension Disposition: HOME / SELF CARE / HOMELESS Condition: IMPROVED Referrals: BRYCE KELLY (PCP) Patient Instructions: Anxiety and Panic Attacks, [id number], Hypertension, [id number] NIHSS Stroke Scale NIH Stroke Scale: NIH Stroke Scale Response (Comments) Value Level of Consciousness: 0 Alert/Responsive 0 LOC Questions: 0 Answers both correctly 0 LOC Commands: 0 Performs both tasks 0 Best Gaze: 0 Normal 0 Visual: 0 No visual loss 0 Facial Palsy: 0 Normal, symmetrical 0 Motor - Left Arm 0 No drift 0 Motor - Right Arm 0 No drift 0 Motor - Left Leg 0 No drift 0 Motor: Right Leg 0 No drift 0 Limb Ataxia: 0 Absent 0 Sensory: 0 No loss 0 Best Language: 0 Normal 0 Dysathria: 0 Normal (baseline) 0 Extinction and Inattention: 0 Normal 0 Total 0 MEIEREVA DO Jul 17, 2021 14:35
[2021-07-17] MEDS ORDERED: IV NORMAL SALINE 1000ML BAG 1,000 ML IV ONE (14:45)
--- NOTE | 2021-07-17 14:51 | RAD ---
EXAM: Head CT without contrast. HISTORY: Headache. Hypertension. Numbness. TECHNIQUE: Computed tomographic images of the head were obtained without contrast. *One or more of the following individualized dose reduction techniques were utilized for this examina tion: 1. Automated exposure control. 2. Adjustment of the mA and/or kV according to patient size. 3. Use of iterative reconstruction technique. COMPARISON: 09/29/2017. FINDINGS: There is no acute or subacute extra-axial or intraparenchymal hemorrhage. There is no mass effect or midline shift. There is no hydrocephalus. There are areas of decreased attenuation within the cerebral white matter, nonspecific and likely rel ated to chronic small vessel disease. There is cerebral volume loss. The visualized portions of the orbits, paranasal sinuses and mastoid air cells are unremarkable. No s uspicious calvarial lesion is seen. There is a stable 1.2 cm benign-appearing lucent lesion within th e left parietal bone superior to the mastoid air cells, possibly a hemangioma. IMPRESSION: 1. No acute intracranial finding. MRI is more sensitive for acute infarction. 2. Bilateral cerebral white matter changes, likely due to chronic small vessel disease. 3. Cerebral volume loss. Electronically signed by: Lorenza Alas MD (07/17/2021 2:49 PM) [id number]
--- NOTE | 2021-07-17 14:53 | RAD ---
EXAM: Chest, single view. HISTORY: Weakness. Numbness. COMPARISON: 04/29/2021 FINDINGS: A frontal view of the chest is obtained. There is no infiltrate, pleural effusion or pneumo thorax. There is a stable prominent cardiac silhouette and ectatic or tortuous ascending aorta. There is hyperinflation due to inspiratory effort or emphysema. IMPRESSION: No acute pulmonary finding. Electronically signed by: Lorenza Alas MD (07/17/2021 2:50 PM) [id number]
[2021-07-17 15:55] LABS: BASO % 1 % (0-3); EOS # 0.3 x10^3/uL (0.0-0.7); EOS % 4 % (0-3); HEMATOCRIT 35.1 % (36.0-47.0); HEMOGLOBIN 11.7 g/dL (12.0-15.5); LYMPH # 1.6 x10^3/uL (1.0-4.8); LYMPH % 25 % (24-48); MEAN CORPUSCULAR HEMOGLOBIN 31 pg (25-35); MEAN CORPUSCULAR HGB CONC 33 g/dL (31-37); MEAN CORPUSCULAR VOLUME 93 fL (79-100); MONO # 0.5 x10^3/uL (0.0-1.1); MONO % 7 % (0-9); NEUT # 4.1 x10^3/uL (1.8-7.7); NEUT % 63 % (31-73); PLATELET COUNT 219 x10^3/uL (140-400); RED BLOOD COUNT 3.77 x10^6/uL (3.50-5.40); RED CELL DISTRIBUTION WIDTH 13.8 % (11.5-14.5); WHITE BLOOD COUNT 6.5 x10^3/uL (4.0-11.0)
[2021-07-17 16:07] LABS: CALCIUM 9.2 mg/dL (8.5-10.1); GFR 67.5; POTASSIUM 3.5 mmol/L (3.5-5.1)
[2021-07-17 16:10] LABS: BILIRUBIN,URINE NEGATIVE (NEG); CLARITY,URINE CLEAR; COLOR,URINE YELLOW; NITRITE,URINE NEGATIVE (NEG); PH,URINE 5.5 (<5.0-8.0); PROTEIN,URINE NEGATIVE (NEG-TRACE); UROBILINOGEN,URINE 0.2 mg/dL (0.2 mg/dL)
[2021-07-17 16:13] LABS: ALBUMIN 3.6 g/dL (3.4-5.0); MAGNESIUM 2.2 mg/dL (1.8-2.4); TOTAL BILIRUBIN 1.8 mg/dL (0.2-1.0); TOTAL PROTEIN 7.2 g/dL (6.4-8.2)
[2021-07-17 16:33] LABS: HYALINE CASTS, URINE OCCASIONAL /HPF
[2021-07-17 16:35] LABS: BACTERIA,URINE 0 /HPF (0-FEW); RBC,URINE 0 /HPF (0-2)
[2021-07-17 18:03] VITALS: BP 148/84
== END 2021-07-17 18:37 | disposition home or self-care (01) ==
LOC: ER 13:05
DX: I10 Essential (primary) hypertension (principal); R20.0 Anesthesia of skin; Z87.891 Personal history of nicotine dependence
CPT/HCPCS: 36415; 70450; 71045; 80053; 81001; 82553; 82962; 83735; 84484; 85025; 93005; 96360; 96361; 99285; J7030

== ENCOUNTER 2021-07-19 17:05 | Emergency (ER) | payer OTHER ==
[~2021-07-19] VITALS: Ht 175.3 cm; Wt 67.4 kg
[2021-07-19 19:56] LABS: BASO % 1 % (0-3); EOS # 0.2 x10^3/uL (0.0-0.7); EOS % 3 % (0-3); HEMATOCRIT 35.9 % (36.0-47.0); HEMOGLOBIN 12.2 g/dL (12.0-15.5); LYMPH # 1.9 x10^3/uL (1.0-4.8); LYMPH % 25 % (24-48); MEAN CORPUSCULAR HEMOGLOBIN 31 pg (25-35); MEAN CORPUSCULAR HGB CONC 34 g/dL (31-37); MEAN CORPUSCULAR VOLUME 92 fL (79-100); MONO # 0.6 x10^3/uL (0.0-1.1); MONO % 7 % (0-9); NEUT # 4.8 x10^3/uL (1.8-7.7); NEUT % 64 % (31-73); PLATELET COUNT 234 x10^3/uL (140-400); RED BLOOD COUNT 3.91 x10^6/uL (3.50-5.40); RED CELL DISTRIBUTION WIDTH 13.6 % (11.5-14.5); WHITE BLOOD COUNT 7.5 x10^3/uL (4.0-11.0)
[2021-07-19 20:02] LABS: CALCIUM 9.4 mg/dL (8.5-10.1); CREATININE 0.9 mg/dL (0.6-1.0); GFR 76.3; POTASSIUM 3.3 mmol/L (3.5-5.1)
[2021-07-19 20:07] LABS: ALBUMIN 3.6 g/dL (3.4-5.0); ALBUMIN/GLOBULIN RATIO 0.9 (1.0-1.7); TOTAL BILIRUBIN 2.1 mg/dL (0.2-1.0); TOTAL PROTEIN 7.7 g/dL (6.4-8.2)
--- NOTE | 2021-07-19 21:31 | PHYS DOC ---
Past Medical History Past Medical History: Glaucoma, Hypertension, Kidney Stone, UTI, Other Additional Past Medical Histor: PANCREAS (DMITRIY RAZO APRN) Past Surgical History: Hysterectomy, Other Additional Past Surgical Histo: breast reduction,BOWEL SURG X 4 (DMITRIY RAZO APRN) Smoking Status: Never Smoker Alcohol Use: None Drug Use: None (DMITRIY RAZO APRN) General Adult EDM: Chief Complaint: HYPERTENSION HPI: HPI: Patient is a 65 year old female who presents with complaints of high blood pressure. Patient states that she has been checking her blood pressure since and it is been elevated. Patient states that she has taken her blood pressure medicine that she has been prescribed. Denies chest pain, shortness of breath, dizziness. Hypertension, hypothyroidism, chronic pancreatitis. (DMITRIY RAZO APRN) Review of Systems: Review of Systems: Constitutional: Denies fever or chills. [] Eyes: Denies change in visual acuity. [] HENT: Denies nasal congestion or sore throat. [] Respiratory: Denies cough or shortness of breath. [] Cardiovascular: Denies chest pain or edema. [] GI: Denies abdominal pain, nausea, vomiting, bloody stools or diarrhea. [] : Denies dysuria. [] Musculoskeletal: Denies back pain or joint pain. [] Integument: Denies rash. [] Neurologic: Denies headache, focal weakness or sensory changes. [] Endocrine: Denies polyuria or polydipsia. [] Lymphatic: Denies swollen glands. [] Psychiatric: Denies depression or anxiety. [] (DMITRIY RAZO APRN) Heart Score: C/O Chest Pain: No Risk Factors: Risk Factors: DM, Current or recent (<one month) smoker, HTN, HLP, family h istory of CAD, obesity. Risk Scores: Score 0 - 3: 2.5% MACE over next 6 weeks - Discharge Home Score 4 - 6: 20.3% MACE over next 6 weeks - Admit for Clinical Observation Score 7 - 10: 72.7% MACE over next 6 weeks - Early Invasive Strategies (DMITRIY RAZO APRN) Allergies: Allergies: Allergies Coded Allergies Type Severity Reaction Last Updated Verified baclofen Allergy Intermediate Rash 07/19/21 Yes chlorzoxazone Allergy Intermediate Rash 07/19/21 Yes cyclobenzaprine Allergy Intermediate Rash 07/19/21 Yes ibuprofen Allergy Intermediate Rash 07/19/21 Yes metaxalone Allergy Intermediate Rash 07/19/21 Yes methocarbamol Allergy Intermediate Rash 07/19/21 Yes orphenadrine Allergy Intermediate Rash 06/28/21 Yes sulfamethoxazole Allergy Intermediate 06/28/21 Yes trimethoprim Allergy Intermediate 06/28/21 Yes (DMITRIY RAZO APRN) Physical Exam: PE: Constitutional: Well developed, well nourished, no acute distress, non-toxic appearance. [] HENT: Normocephalic, atraumatic, bilateral external ears normal, oropharynx moist, no oral exudates, nose normal. [] Eyes: PERRLA, EOMI, conjunctiva normal, no discharge. [] Neck: Normal range of motion, no tenderness, supple, no stridor. [] Cardiovascular:Heart rate regular rhythm, no murmur [] Lungs & Thorax: Bilateral breath sounds clear to auscultation [] Abdomen: Bowel sounds normal, soft, no tenderness, no masses, no pulsatile m asses. [] Skin: Warm, dry, no erythema, no rash. [] Back: No tenderness, no CVA tenderness. [] Extremities: No tenderness, no cyanosis, no clubbing, ROM intact, no edema. [] Neurologic: Alert and oriented X 3, normal motor function, normal sensory function, no focal deficits noted. [] Psychologic: Affect normal, judgement normal, mood normal. [] (DMITRIY RAZO APRN) Current Patient Data: Labs: Laboratory Tests Test 07/19/21 19:30 07/19/21 21:00 White Blood Count 7.5 x10^3/uL (4.0-11.0) Red Blood Count 3.91 x10^6/uL (3.50-5.40) Hemoglobin 12.2 g/dL (12.0-15.5) Hematocrit 35.9 % (36.0-47.0) L Mean Corpuscular Volume 92 fL (79-100) Mean Corpuscular Hemoglobin 31 pg (25-35) Mean Corpuscular Hemoglobin Concent 34 g/dL (31-37) Red Cell Distribution Width 13.6 % (11.5-14.5) Platelet Count 234 x10^3/uL (140-400) Neutrophils (%) (Auto) 64 % (31-73) Lymphocytes (%) (Auto) 25 % (24-48) Monocytes (%) (Auto) 7 % (0-9) Eosinophils (%) (Auto) 3 % (0-3) Basophils (%) (Auto) 1 % (0-3) Neutrophils # (Auto) 4.8 x10^3/uL (1.8-7.7) Lymphocytes # (Auto) 1.9 x10^3/uL (1.0-4.8) Monocytes # (Auto) 0.6 x10^3/uL (0.0-1.1) Eosinophils # (Auto) 0.2 x10^3/uL (0.0-0.7) Basophils # (Auto) 0.0 x10^3/uL (0.0-0.2) Sodium Level 140 mmol/L (136-145) Potassium Level 3.3 mmol/L (3.5-5.1) L Chloride Level 105 mmol/L (98-107) Carbon Dioxide Level 23 mmol/L (21-32) Anion Gap 12 (6-14) Blood Urea Nitrogen 7 mg/dL (7-20) Creatinine 0.9 mg/dL (0.6-1.0) Estimated GFR (Cockcroft-Gault) 76.3 BUN/Creatinine Ratio 8 (6-20) Glucose Level 91 mg/dL (70-99) Calcium Level 9.4 mg/dL (8.5-10.1) Total Bilirubin 2.1 mg/dL (0.2-1.0) H Aspartate Amino Transferase (AST) 21 U/L (15-37) Alanine Aminotransferase (ALT) 26 U/L (14-59) Alkaline Phosphatase 111 U/L (46-116) Total Protein 7.7 g/dL (6.4-8.2) Albumin 3.6 g/dL (3.4-5.0) Albumin/Globulin Ratio 0.9 (1.0-1.7) L Troponin I High Sensitivity 18 ng/L (4-50) Laboratory Tests 07/19/21 19:30 Laboratory Tests 07/19/21 19:30 Vital Signs: Vital Signs Date Time Temp Pulse Resp B/P (MAP) Pulse Ox O2 Delivery O2 Flow Rate FiO2 07/19/21 20:48 66 18 199/95 (129) 99 Room Air 07/19/21 17:47 97.7 97.7 (DMITRIY RAZO APRN) EKG: EKG: Heart rate 76. No ST elevation or depression. EKG read by Dr. Roberts. [] (DMITRIY RAZO APRN) Radiology/Procedures: Radiology/Procedures: [] (DMITRIY RAZO APRN) Course & Med Decision Making: Course & Med Decision Making Pertinent Labs and Imaging studies reviewed. (See chart for details) [] 65-year-old female who presents with hypertension. Patient's blood pressure on arrival was 180s over 100. Patient states that she been taking her medication at home. No chest pain, shortness of breath, headache, dizziness. Work-up in ER consisted of labs, EKG, troponin. All labs unremarkable. Troponin is unremarkable. Patient given 1 dose of clonidine. Advised patient to keep taking her medication as directed. Upon rechecking blood pressure, blood pressures 180s/90s, asymptomatic. Patient needs to follow-up with her PCP on Wednesday to possibly adjust blood pressure medications. Discussed with patient return precautions. Patient states that she understands discharge instructions. (DMITRIY RAZO APRN) Course & Med Decision Making Patients Care and treatment plan provided by ER mid-level Practitioner. I was available for consult. Patient's chart reviewed. (ROWAN ACOSTA DO) Rosemary Disclaimer: Rosemary Disclaimer: This electronic medical record was generated, in whole or in part, using a voice recognition dictation system. (DMITRIY RAZO APRN) Departure Departure Impression: Primary Impression: History of hypertension Disposition: HOME / SELF CARE / HOMELESS Condition: STABLE Referrals: BRYCE KELLY (PCP) Patient Instructions: Hypertension, [id number] Additional Instructions: You were seen in the emergency room for concerns of high blood pressure. Your blood pressure was mildly elevated while in the ER. You denied any other symptoms such as chest pain, shortness of breath. We checked your labs which were all unremarkable. Your EKG was unremarkable as well. You were given c lonidine while in the ER. Please follow-up with your PCP on Wednesday for further management and possibly adjustments of your blood pressure meds. Return to the emergency room if you have chest pain, shortness of breath, dizziness or any other concerns. EMERGENCY DEPARTMENT GENERAL DISCHARGE INSTRUCTIONS Thank you for coming to [facility] Emergency Department (ED) today and trusting us with you care. We trust that you had a positive experience in our Emergency Department. If you wish to speak to the department management, you may call the Director at [phone]. YOUR FOLLOW UP INSTRUCTIONS ARE FOLLOWS: 1. Do you have a private Doctor? If you do not have a private doctor, please ask for a resource list of physicians or clinics that may be able to assist you with follow up care. 2. The Emergency Physicain has interpreted your x-rays. The X-Ray specialist will also review them. If there is a change in the findings, you will be notified in 48 hours when at all possible. 3. A lab test or culture has been done, your results will be reviewed and you will be notified if you need a change in treatment. ADDITIONAL INSTRUCTIONS AND INFORMATION: 1. Your care today has been supervised by a physician who is specially trained in emergency care. Many problems require more than one evaluation for a complete diagnosis and treatment. We recommend that you schedule your follow up appointment as recommended to ensure complete treatment of you illness or injury. If you are unable to obtain follow up care and continue to have a problem, or if your condition worsens, we recommend that you return to the ED. 2. We are not able to safely determine your condition over the phone nor are we able to give sound medical advice over the phone. For these safety reasons, if you call for medical advice we will ask you to come to the ED for further evaluation. 3. If you have any questions regarding these discharge instructions please call the ED at [phone]. SAFETY INFORMATION: In the interest of safety, wellness, and injury prevention; we encourage you to wear your sealbelt, if you smoke; quite smoking, and we encourage family to use a protective helmet for bicycling and other sporting events that present an increased risk for head injury. IF YOUR SYMPTOMS WORSEN OR NEW SYMPTOMS DEVELOP, OR YOU HAVE CONCERNS ABOUT YOUR CONDITION; OR IF YOUR CONDITION WORSENS WHILE YOU ARE WAITING FOR YOUR FOLLOW UP APPOINTMENT; EITHER CONTACT YOUR PRIMARY CARE DOCTOR, THE PHYSICIAN WHOSE NAME AND NUMBER YOU WERE GIVEN, OR RETURN TO THE ED IMMEDIATELY. DMITRIY RAZO APRN Jul 19, 2021 21:31 ROWAN ACOSTA DO Jul 26, 2021 03:07
[2021-07-19 21:36] VITALS: BP 181/92
[2021-07-19] MEDS ORDERED: cloNIDine HCL 0.1 MG TABLET PO ONE (22:00)
[2021-07-20] MEDS ORDERED: HYDR-2867 PO (22:46)
[2021-07-20] MEDS ORDERED: CARV12.5 PO (22:47)
[2021-07-20] MEDS ORDERED: OXYB10TA7 PO (22:47)
[2021-07-20] MEDS ORDERED: AMLO-187 PO (22:48)
[2021-07-20] MEDS ORDERED: [UNRECOGNIZED DRUG - CODE] PO (22:49)
[2021-07-20] MEDS ORDERED: FAMO20TA5 PO (22:50)
[2021-07-20] MEDS ORDERED: ASPI-630 PO (22:50)
[2021-07-20] MEDS ORDERED: tumeric (22:50)
[2021-07-20] MEDS ORDERED: FERR220S8 PO (22:52)
[2021-07-20] MEDS ORDERED: MAGN250T10 PO (22:52)
[2021-07-20] MEDS ORDERED: BLAC540C4 PO (22:52)
[2021-07-20] MEDS ORDERED: FERR142T13 PO (22:52)
[2021-07-20] MEDS ORDERED: SPIR25TA5 PO (22:53)
--- NOTE | 2021-07-21 01:10 | EKG ---
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
== END 2021-07-19 21:47 | disposition home or self-care (01) ==
LOC: ER 17:05
DX: I10 Essential (primary) hypertension (principal); E03.9 Hypothyroidism, unspecified; Z88.1 Allergy status to other antibiotic agents; Z88.2 Allergy status to sulfonamides; Z88.8 Allergy status to other drugs, medicaments and biological substances
CPT/HCPCS: 36415; 80053; 84484; 85025; 93005; 99284

== ENCOUNTER 2021-07-20 22:25 | Emergency (ER) | payer OTHER, MEDICARE ==
[~2021-07-20] VITALS: Ht 177.8 cm; Wt 73.0 kg
[2021-07-20] MEDS ORDERED: HYDR-2867 PO (22:46)
[2021-07-20] MEDS ORDERED: OXYB10TA7 PO (22:47)
[2021-07-20] MEDS ORDERED: CARV12.5 PO (22:47)
[2021-07-20] MEDS ORDERED: AMLO-187 PO (22:48)
[2021-07-20] MEDS ORDERED: [UNRECOGNIZED DRUG - CODE] PO (22:49)
[2021-07-20] MEDS ORDERED: tumeric (22:50)
[2021-07-20] MEDS ORDERED: ASPI-630 PO (22:50)
[2021-07-20] MEDS ORDERED: FAMO20TA5 PO (22:50)
[2021-07-20] MEDS ORDERED: BLAC540C4 PO (22:52)
[2021-07-20] MEDS ORDERED: FERR220S8 PO (22:52)
[2021-07-20] MEDS ORDERED: FERR142T13 PO (22:52)
[2021-07-20] MEDS ORDERED: MAGN250T10 PO (22:52)
[2021-07-20] MEDS ORDERED: SPIR25TA5 PO (22:53)
--- NOTE | 2021-07-20 23:01 | PHYS DOC ---
Past Medical History Past Medical History: Anxiety, Glaucoma, Hypertension, Kidney Stone, UTI, Other Additional Past Medical Histor: PANCREAS Past Surgical History: Hysterectomy, Other Additional Past Surgical Histo: breast reduction,BOWEL SURG X 4 Smoking Status: Never Smoker Alcohol Use: None Drug Use: None General Adult EDM: Chief Complaint: HYPERTENSION HPI: HPI: Patient is a 65-year-old female that presents today with a chief complaint of hypertension. Patient states that she checked her blood pressure at home today and she said it was 180s over 90s and she is presenting here to the emergency department because she is afraid that she is going to have a stroke. Patient states that her blood pressure was running high today she was seen at an urgent care clinic today and was prescribed hydralazine 10 mg twice daily, she states she took a dose at 11 AM and took another dose today at 1730 and she says that she took her blood pressure and it was reading 180s over 90s so she presents today for evaluation. Also to be noted that patient was seen here in the emergency department on July 17 and July 19 both for hypertension. Patient states that she tried to call her service now developer on Wednesday and they were unable to see her until August 12. Patient denies chest pain, shortness of air, or headache. Her current blood pressure was 148/87, we did check her home machine that she did bring with her today and it showed her blood pressure to be 168/98. She states her home machine is about a year and a half old and she says she just changed out the batteries. Patient did not bring her home medications with her today she takes Coreg 12.5 mg twice daily, amlodipine 10 mg once daily, spironolactone 25 mg once daily and now hydralazine 10 mg twice daily for hypertension management. Review of Systems: Review of Systems: Constitutional: Denies fever or chills. [] Eyes: Denies change in visual acuity. [] HENT: Denies nasal congestion or sore throat. [] Respiratory: Denies cough or shortness of breath. [] Cardiovascular: hypertension Denies chest pain or edema. [] GI: Denies abdominal pain, nausea, vomiting, bloody stools or diarrhea. [] : Denies dysuria. [] Musculoskeletal: Denies back pain or joint pain. [] Integument: Denies rash. [] Neurologic: Denies headache, focal weakness or sensory changes. [] Endocrine: Denies polyuria or polydipsia. [] Lymphatic: Denies swollen glands. [] Psychiatric: Denies depression or anxiety. [] Heart Score: C/O Chest Pain: N/A Risk Factors: Risk Factors: DM, Current or recent (<one month) smoker, HTN, HLP, family history of CAD, obesity. Risk Scores: Score 0 - 3: 2.5% MACE over next 6 weeks - Discharge Home Score 4 - 6: 20.3% MACE over next 6 weeks - Admit for Clinical Observation Score 7 - 10: 72.7% MACE over next 6 weeks - Early Invasive Strategies Allergies: Allergies: Allergies Coded Allergies Type Severity Reaction Last Updated Verified baclofen Allergy Intermediate Rash 07/19/21 Yes chlorzoxazone Allergy Intermediate Rash 07/19/21 Yes cyclobenzaprine Allergy Intermediate Rash 07/19/21 Yes ibuprofen Allergy Intermediate Rash 07/19/21 Yes metaxalone Allergy Intermediate Rash 07/19/21 Yes methocarbamol Allergy Intermediate Rash 07/19/21 Yes orphenadrine Allergy Intermediate Rash 06/28/21 Yes sulfamethoxazole Allergy Intermediate 06/28/21 Yes trimethoprim Allergy Intermediate 06/28/21 Yes Physical Exam: PE: Constitutional: Well developed, well nourished, no acute distress, non-toxic appearance. [] HENT: Normocephalic, atraumatic, bilateral external ears normal, oropharynx moist, no oral exudates, nose normal. [] Eyes: PERRLA, EOMI, conjunctiva normal, no discharge. [] Neck: Normal range of motion, no tenderness, supple, no stridor. [] Cardiovascular:Heart rate regular rhythm, no murmur [] Lungs & Thorax: Bilateral breath sounds clear to auscultation [] Abdomen: Bowel sounds normal, soft, no tenderness, no masses, no pulsatile masses. [] Skin: Warm, dry, no erythema, no rash. [] Back: No tenderness, no CVA tenderness. [] Extremities: No tenderness, no cyanosis, no clubbing, ROM intact, no edema. [] Neurologic: Alert and oriented X 3, normal motor function, normal sensory function, no focal deficits noted. [] Psychologic: Affect normal, judgement normal, mood anxious. [] EKG: EKG: [] Radiology/Procedures: Radiology/Procedures: [] Course & Med Decision Making: Course & Med Decision Making Pertinent Labs and Imaging studies reviewed. (See chart for details) [After conferring with Dr. Munoz, we did review her last 2 emergency department visits noting that her troponin was negative, and her renal function was within normal limits. Patient is not having any chest pain or shortness of air at this time, no signs and symptoms of a stroke is noted during the exam, patient appears very anxious and very nervous and after talking with her at length she calmed down and her blood pressure came down. Patient is instructed to follow- up tomorrow with her primary care physician, patient instructed to get a new blood pressure machine, she has been instructed to take her blood pressure only once daily at the same time 1 hour after taking her blood pressure medication and after sitting for 5 to 10 minutes to relax. Patient is to record these on a trending basis and take these readings to her primary care doctor's office for evaluation. Patient is to continue all of her blood pressure medications which include Coreg 12.5 mg twice daily, amlodipine 10 mg once daily, spironolactone 25 mg take 1 tablet daily and the addition today of hydralazine 10 mg twice daily. Blood pressure at discharge was 124/72 with a heart rate of 65 Dragon Disclaimer: Dragon Disclaimer: This electronic medical record was generated, in whole or in part, using a voice recognition dictation system. Departure Departure Impression: Primary Impression: History of hypertension Disposition: HOME / SELF CARE / HOMELESS Condition: STABLE Referrals: BRYCE KELLY (PCP) Patient Instructions: Hypertension Additional Instructions: Continue to take all of your medications as prescribed Get a new blood pressure measuring machine, take your blood pressure once daily 1 hour after taking your morning medications for hypertension, take this while sitting and after relaxing for 10 minutes, take the blood pressure on the same arm every day, record these readings and take those to your next doctor's appointment to allow them to see your readings on a continuous basis. Return to the emergency department for chest pain, shortness of air, facial droop, inability to use 1 side your body, sudden onset of the worst headache or any other concerns you may have. Follow-up with your primary care physician tomorrow for further management of your hypertension. GERRY NYE APRN Jul 20, 2021 23:01
[2021-07-20 23:15] VITALS: BP 124/72
== END 2021-07-20 23:30 | disposition home or self-care (01) ==
LOC: ER 22:25
DX: I10 Essential (primary) hypertension (principal); Z88.1 Allergy status to other antibiotic agents; Z88.2 Allergy status to sulfonamides; Z88.5 Allergy status to narcotic agent; Z88.8 Allergy status to other drugs, medicaments and biological substances
CPT/HCPCS: 99281